=== PATIENT | male | born 1980 | race Caucasian/White ===

== ENCOUNTER → 2018-02-10 15:12 | Outpatient (CLI) | payer BC, SELFPAY | PROVIDERS: PCP Family Medicine; Visit Provider Family Medicine | DX: R06.83 Snoring (principal); R53.83 Other fatigue; I10 Essential (primary) hypertension | CPT/HCPCS: 95806 ==

== ENCOUNTER → 2019-08-13 07:29 | Outpatient (CLI) | payer BC, SELFPAY ==
[2019-08-13 07:44] LABS: Basophils % 0.7 % (0.1-2.0); Eosinophils # 0.1 K/mm3 (0.0-0.4); Eosinophils % 1.5 % (0.1-12.0); Hematocrit 39.6 % (42.0-52.0); Hemoglobin 13.9 g/dL (14.1-18.0); Lymphocytes % 16.7 % (10-50); Mean Corpuscular HGB Conc 35.1 g/dL (31.8-35.4); Mean Corpuscular Hemoglobin 33.4 pg (27.0-31.2); Mean Corpuscular Volume 95.2 fl (80-94); Mean Platelet Volume 9.5 fl (7.4-10.4); Monocytes # 0.5 K/mm3 (0.1-1.0); Monocytes % 9.1 % (1.7-9.3); Neutrophils # 4.1 K/mm3 (1.8-7.8); Neutrophils % 71.9 % (37.0-80.0); Platelet Count 185 K/mm3 (142-424); Red Blood Count 4.15 M/mm3 (4.60-6.20); Red Cell Distribution Width 12.6 % (11.5-17.5); White Blood Count 5.7 K/mm3 (4.8-10.8)
[2019-08-13 10:01] LABS: Alanine Aminotransferase 40 U/L (12-78); Albumin Level 3.8 gm/dL (3.4-5.0); Albumin/Globulin Ratio 1.2 (1.1-1.8); Alkaline Phosphatase 75 U/L (46-116); Anion Gap 12.4 mEq/L (5-15); Aspartate Amino Transferase 34 U/L (15-37); Bilirubin,Total 0.7 mg/dL (0.2-1.0); Blood Urea Nitrogen 12 mg/dL (7-18); Calcium 9.2 mg/dL (8.5-10.1); Carbon Dioxide 29 mmol/L (21.0-32.0); Chloride 105 mmol/L (98-107); Chol/HDL Ratio 3.8 (1-3.5); Cholesterol 194 mg/dL (140-200); Creatinine,Serum 0.89 mg/dL (0.70-1.30); Estimated Glomerular Filt Rate 94 ml/min (>60); Ferritin 392 ng/mL (8-388); GFR (African American) 114 ML/MIN (>60); Globulin 3.2 gm/dl (1.3-3.2); Glucose 107 mg/dL (74-106); HDL Cholesterol 51 mg/dL (27-67); LDL Cholesterol 103 mg/dL (0-130); Potassium 4.4 mmoL/L (3.5-5.1); Sodium 142 mmol/L (136-145); Thyroid Stimulating Hormone 2.34 uIU/ml (0.358-3.740); Triglycerides 201 mg/dL (30-200); Uric Acid 6.6 mg/dL (2.6-7.2); VLDL Cholesterol 40 mg/dL (0-40)
[2019-08-14 08:18] LABS: Iron 79 ug/dL (38-169); UIBC 199 ug/dL (111-343)
[2019-08-14 15:31] LABS: Iron Saturation 28 % (15-55)
== END ==
PROVIDERS: Visit Provider Family Medicine
DX: E78.00 Pure hypercholesterolemia, unspecified (principal); I10 Essential (primary) hypertension; R94.5 Abnormal results of liver function studies; M1A.9XX0 Chronic gout, unspecified, without tophus (tophi)
CPT/HCPCS: 36415; 80053; 80061; 82728; 83540; 83550; 84443; 84550; 85025

== ENCOUNTER 2020-03-08 19:25 | Inpatient (IN) | payer BC, SELFPAY ==
[2020-03-08 19:38] VITALS: BP 136/95; PULSE 125; RESP 18; TEMP 37.6; O2SAT 97; BMI 27.1
--- NOTE | 2020-03-08 19:45 | CT_ITS ---
PROCEDURE: CT ABDOMEN PELVIS WO CON CLINICAL INDICATION: Right flank pain Right flank pain and epigastric pain COMPARISON: CT ABDPELW/WO CT ABD PELVIS W/WO CONTRAST from 09/29/2013 TECHNIQUE: Axial images obtained with sagittal and coronal reformats. All CT scans at the facility use one or more dose reduction, viz: automated exposure control, ma/kV adjustment per patient size (including targeted exams where dose is matched to indication, i.e. head), or iterative reconstruction technique. FINDINGS: LOWER THORAX: There is a 8 mm nodular opacity in the right infrahilar region incompletely imaged. There is mild thickening in the right major fissure. Calcified granuloma is present in the left lower lobe posteriorly ABDOMEN & PELVIS: Fatty liver with hepatomegaly. There is some increased density of the gallbladder posteriorly which may be related to sludge. None is enlarged meters. There is stranding of the peripancreatic fat at the region of the head of the pancreas. There is also thickening of the anterior pararenal fascia on the right extending over into the pericolic gutter region. There is mild thickening of the transverse portion of the duodenum. No pancreatic gas is evident. No renal or ureteral calculi. No hydronephrosis. No evidence of appendicitis. No pelvic mass or abnormal fluid collection is evident. There is thickening of the urinary bladder wall. No acute bony findings. IMPRESSION: 1. Findings compatible with acute pancreatitis. 2. Fatty liver with hepatosplenomegaly with possible gallbladder sludge 3. Incompletely imaged 8 mm nodular opacity right infrahilar region Dictated by: David Freeman MD 03/09/2020 05:59 David Freeman MD in [place] 03/09/2020 05:59
[2020-03-08 19:52] LABS: Microscopic, Urine URINE MICROSCOPIC (MICROSCOPIC)
[2020-03-08 19:56] LABS: Appearance,Urine CLEAR (Clear); Bilirubin,Urine Negative (Negative); Blood, Urine TRACE-L (Negative); Color,Urine DK YELLOW (Yellow); Glucose,Urine (UA) Negative (Negative); Ketones,Urine Negative (Negative); Leukocyte Esterase,Urine Negative (Negative); Nitrate,Urine Negative (Negative); Protein,Urine 1+ (Negative); Specific Gravity, Urine 1.025 (1.005-1.030); Urobilinogen,Urine 0.2 EU/dl (0.2)
--- NOTE | 2020-03-08 20:04 | HMH.EDABDPAI ---
ED Disposition Clinical Impression: Good ability to follow directions Acute alcoholic pancreatitis Qualifiers: Acute pancreatitis complication: no infection or necrosis Qualified Code(s): K85.20 - Alcohol induced acute pancreatitis without necrosis or infection UTI (urinary tract infection) Qualifiers: Urinary tract infection type: acute cystitis Hematuria presence: with hematuria Qualified Code(s): N30.01 - Acute cystitis with hematuria Disposition: Admitted As Inpatient Condition on Discharge: Fair - Critical Care Critical Care Time: No Attestation: On 03/08/20, the high probability of a clinically significant, sudden or life threatening deterioration of the following system(s) required my full and direct attention, intervention and personal management. The time I documented below is in addition to time spent performing reported procedures but includes the following listed in this critical care notation. Medical Decision Making - Medical Records Medical records reviewed: Yes: I reviewed the patient's medical records. - [place] Inquiry Pt receiving controlled substance: No Vital Signs: 03/08/20 19:38 03/08/20 22:35 Temperature 99.6 F 99.6 F Temperature Source Oral Pulse Rate 82 Pulse Rate [Right] 125 H Respiratory Rate 18 14 Blood Pressure 126/76 Blood Pressure [Right Arm] 136/95 H Blood Pressure Mean [Right Arm] 108 Blood Pressure Source [Right Arm] Automatic Cuff Blood Pressure Position [Right Arm] Sitting 02 Sat by Pulse Oximetry 97 Oxygen Delivery Method Room Air Room Air - Lab Data Lab Results 03/08/20 19:30: Urine Color Dk yellow, Urine Appearance Clear, Urine pH 6.0, Ur Specific [place] 1.025, Urine Protein 1+, Urine Glucose (UA) Negative, Urine Ketones Negative, Urine Blood Trace-l, Urine Nitrate Negative, Urine Bilirubin Negative, Urine Urobilinogen 0.2, Ur Leukocyte Esterase Negative, Urine RBC 3-5, Urine WBC 5-10, Ur Squamous Epith Cells Occasional, Urine Bacteria 2+, Fine Granular Casts Occasional 03/08/20 19:55: WBC 15.0 H, RBC 4.63, Hgb 16.5, Hct 45.0, MCV 97.2 H, MCH 35.7 H, MCHC 36.7 H, RDW 11.9, Plt Count 164, MPV 8.1, Neut % (Auto) 83.0 H, Lymph % (Auto) 10.0, [place] % (Auto) 5.6, Eos % (Auto) 1.0, Baso % (Auto) 0.4, Neut # (Auto) 12.5 H, Lymph # (Auto) 1.5, [place] # (Auto) 0.8, Eos # (Auto) 0.2, Baso # (Auto) 0.1, Total Counted 100, Neutrophils % (Manual) 91 H, Lymphocytes % (Manual) 6 L, Monocytes % (Manual) 3, Platelet Estimate Normal, Giant Platelets 1+, RBC Morphology Normal 03/08/20 19:55: Sodium 139, Potassium 4.1, Chloride 100, Carbon Dioxide 25, Anion Gap 18.1 H, BUN 8 L, Creatinine 0.70, Estimated Creat Clear 178, Estimated GFR 124, Est GFR ( Amer) 150, Glucose 136 H, Calcium 9.6, Total Bilirubin 3.2 H, AST 136 H, ALT 77, Alkaline Phosphatase 127 H, Total Protein 8.2, Albumin 4.5, Globulin 3.7 H, Albumin/Globulin Ratio 1.2, Amylase 91, Lipase 1069 H 03/08/20 19:55: SARS-CoV-2 IgG Ab (Rapid) Negative, SARS-CoV-2 IgM Ab (Rapid) Negative Result diagrams: 03/08/20 19:55 03/08/20 19:55 Orders (Tests/Meds): ED MEDICATIONS Generic Name Dose Route Start Last Admin Trade Name Freq PRN Reason Stop Dose Admin Piperacillin Sod/Tazobactam 50 mls @ 100 mls/hr 03/09/20 05:45 Sod 3.375 gm/ Sodium Chloride IV 03/22/20 21:44 Q8H LINDA Protocol Lactated Ringer's 1,000 mls @ 90 mls/hr 03/08/20 22:44 03/08/20 23:29 Lactated Ringer's 1000 Ml Bag IV 04/07/20 22:43 90 mls/hr .[id number] LINDA Administration Ibuprofen 800 mg 03/08/20 22:44 Motrin 400mg Tablet PO 04/07/20 22:43 Q6HP PRN Mild Pain Morphine Sulfate 4 mg 03/08/20 22:44 Morphine 2mg/Ml Syringe IV 04/07/20 22:43 Q4HP PRN Severe Pain Discontinued Medications Generic Name Dose Route Start Last Admin Trade Name Freq PRN Reason Stop Dose Admin Sodium Chloride 1,000 mls @ 999 mls/hr 03/08/20 19:45 03/08/20 19:55 Sod Chlor 0.9% 1000ml Bag IV 03/08/20 20:45 999
[2020-03-08 20:13] LABS: Bacteria,Urine 2+ /lpf; Fine Granular Casts,Urine Occasional #/lpf (0); Squamous Epithelial Cell,Urine Occasional #/hpf (0-5)
[2020-03-08 20:15] LABS: Chloride 100 mmol/L (98-107); Potassium 4.1 mmoL/L (3.5-5.1); Sodium 139 mmol/L (136-145)
[2020-03-08 20:16] LABS: Basophils # 0.1 K/mm3 (0-0.2); Basophils % 0.4 % (0.1-2.0); Eosinophils # 0.2 K/mm3 (0.0-0.4); Hemoglobin 16.5 g/dL (14.1-18.0); Lymphocytes # 1.5 K/mm3 (0.7-4.5); Mean Corpuscular HGB Conc 36.7 g/dL (31.8-35.4); Mean Corpuscular Hemoglobin 35.7 pg (27.0-31.2); Mean Corpuscular Volume 97.2 fl (80-94); Mean Platelet Volume 8.1 fl (7.4-10.4); Monocytes # 0.8 K/mm3 (0.1-1.0); Monocytes % 5.6 % (1.7-9.3); Neutrophils # 12.5 K/mm3 (1.8-7.8); Platelet Count 164 K/mm3 (142-424); Red Blood Count 4.63 M/mm3 (4.60-6.20); Red Cell Distribution Width 11.9 % (11.5-17.5)
[2020-03-08 20:18] LABS: Alanine Aminotransferase 77 U/L (12-78); Albumin Level 4.5 g/dl (3.5-5.0); Albumin/Globulin Ratio 1.2 (1.1-1.8); Alkaline Phosphatase 127 U/L (38-126); Amylase 91 U/L (30-110); Anion Gap 18.1 mEq/L (5-15); Aspartate Amino Transferase 136 U/L (17-59); Bilirubin,Total 3.2 mg/dl (0.2-1.3); Blood Urea Nitrogen 8 mg/dl (9-20); Calcium 9.6 mg/dl (8.4-10.2); Carbon Dioxide 25 mmol/L (22.0-30.0); Creatinine Clearance Estimated 178 mL/min (50-200); Estimated Glomerular Filt Rate 124 ml/min (>60); GFR (African American) 150 ML/MIN (>60); Globulin 3.7 g/dL (1.3-3.2); Glucose 136 mg/dl (74-100); Lipase 1069 U/L (23-300); Total Protein,Serum 8.2 g/dl (6.3-8.2)
[2020-03-08 20:32] LABS: MANUAL DIFFERENTIAL MANUAL DIFFERENTIAL (MANUAL DIFF)
[2020-03-08 20:47] LABS: Giant Platelets 1+; Lymphocytes % 6 % (10-50); Monocytes % 3 % (2-9); Neutrophils % 91 % (42-76); Platelet Estimate Normal; RBC Morphology Normal; Total Cells Counted 100
--- NOTE | 2020-03-08 21:14 | US_ITS ---
PROCEDURE: US GALLBLADDER CLINICAL INDICATION: Right upper quadrant abdominal pain, pancreatitis COMPARISON: CT CT ABDOMEN PELVIS WO CON from 03/08/2020 FINDINGS: Pancreas: Unremarkable/Not well seen Liver: Diffuse increased echogenicity of the liver with poor through transmission of sound consistent with hepatic steatosis. No focal liver lesion demonstrated. There is appropriate direction of blood flow within non dilated portal vein. Right kidney: Unremarkable appearing. No hydronephrosis. Gallbladder: No stones are evident. There is no gallbladder wall thickening. Common duct is normal in diameter. IMPRESSION: Fatty liver otherwise negative No gallstones demonstrated Dictated by: David Freeman MD 03/09/2020 05:35 David Freeman MD in [place] 03/09/2020 05:35
--- NOTE | 2020-03-08 22:02 | PC.NURSE ---
on phone with dr. vail at this time
--- NOTE | 2020-03-08 22:08 | PC.NURSE ---
Patient admitted to 202 to service of to [place] with dx. acute pancreatitis and sepsis.
--- NOTE | 2020-03-08 22:34 | PC.NURSE ---
ED DIRECTOR OF PHARMACY KERRI BOTH SETS OF BLOOD CULTURES PER PROTOCOL. ZOSYN BEGAN AFTER CULTURE DRAW. ORIGINAL IV OF 20G RAC HAD BLOWN, SO 20G IN RFA BEGAN TO REPLACE
[2020-03-08 22:35] VITALS: BP 126/76; PULSE 82; RESP 14; TEMP 37.6; O2SAT 99
[2020-03-08 23:04] LABS: Coronavirus 19 IgG Antibody Negative (Negative); Coronavirus 19 IgM Antibody Negative (Negative)
[2020-03-08 23:07] LABS: Lactic Acid 1.1 mmol/L (0.7-2.1)
--- NOTE | 2020-03-08 23:09 | PC.NURSE ---
PT ARRIVED TO THE FLOOR VIA W/C FROM ED AT 2306.
[2020-03-08 23:15] VITALS: BP 135/94; PULSE 113; RESP 18; TEMP 37.7; O2SAT 98
[2020-03-08 23:34] VITALS: BMI 25.0
--- NOTE | 2020-03-09 03:43 | PC.NURSE ---
A&OX4, PT TOLERATING RA WELL. PT IS AT BEDSIDE. PT C/O ABD PAIN RATING 8 ON 1-10 SCALE ON ARRIVAL TO FLOOR. ADMINISTERED PRN MORPHINE PER MAR. ON REASSESSMENT, PT RESTING IN BED WITH EYES CLOSED. PT HAS HAD NO OTHER C/O THUS FAR. CIWA PERFORMED, SCORE OF 0. PT UP INDEPENDENTLY IN ROOM. PT TOLERATING NPO DIET WELL. PT RESTING IN BED MAJORITY OF SHIFT. VSS WILL CONTINUE TO MONITOR.
[2020-03-09 04:00] VITALS: BP 131/81; PULSE 95; RESP 18; TEMP 37; O2SAT 98
[2020-03-09 05:00] VITALS: BMI 24.6
[2020-03-09 06:57] LABS: Eosinophils # 0.1 K/mm3 (0.0-0.4); Eosinophils % 1.3 % (0.1-12.0); Monocytes # 0.7 K/mm3 (0.1-1.0)
[2020-03-09 07:05] LABS: Basophils % 0.3 % (0.1-2.0); Hematocrit 34.7 % (42.0-52.0); Lymphocytes % 11.3 % (10-50); Mean Corpuscular HGB Conc 38.5 g/dL (31.8-35.4); Mean Corpuscular Volume 93.5 fl (80-94); Mean Platelet Volume 8.7 fl (7.4-10.4); Monocytes % 7.8 % (1.7-9.3); Neutrophils # 6.9 K/mm3 (1.8-7.8); Neutrophils % 79.4 % (37.0-80.0); Platelet Count 104 K/mm3 (142-424); Red Blood Count 3.71 M/mm3 (4.60-6.20); Red Cell Distribution Width 12.2 % (11.5-17.5); White Blood Count 8.7 K/mm3 (4.8-10.8)
[2020-03-09 07:06] LABS: Hemoglobin 13.4 g/dL (14.1-18.0)
[2020-03-09 07:15] LABS: Chloride 104 mmol/L (98-107); Potassium 3.6 mmoL/L (3.5-5.1); Sodium 139 mmol/L (136-145)
[2020-03-09 07:18] LABS: Alanine Aminotransferase 48 U/L (12-78); Albumin Level 3.7 g/dl (3.5-5.0); Albumin/Globulin Ratio 1.1 (1.1-1.8); Alkaline Phosphatase 92 U/L (38-126); Anion Gap 10.6 mEq/L (5-15); Aspartate Amino Transferase 84 U/L (17-59); Bilirubin,Total 2.8 mg/dl (0.2-1.3); Blood Urea Nitrogen 9 mg/dl (9-20); Carbon Dioxide 28 mmol/L (22.0-30.0); Creatinine Clearance Estimated 162 mL/min (50-200); Estimated Glomerular Filt Rate 124 ml/min (>60); GFR (African American) 150 ML/MIN (>60); Globulin 3.3 g/dL (1.3-3.2); Glucose 119 mg/dl (74-100)
[2020-03-09 07:37] LABS: Calcium 8.3 mg/dl (8.4-10.2)
--- NOTE | 2020-03-09 07:53 | HMH.PHAINT ---
home medication reconciliation completed using list from home pharmacy
--- NOTE | 2020-03-09 07:55 | HMH.PHAVTE ---
[facility] Pharmacy VTE Monitoring - Patient Demographics Admission date: 03/09/20 Report Date: 03/09/20 Time: 07:55 Allergies/Adverse Reactions: Patient Allergies NO KNOWN ALLERGIES Allergy (Uncoded 06/24/17 15:34) Height: 1.83 m Weight: 82.582 kg Patient Problems: Current Active Problems Good ability to follow directions (Acute) Acute alcoholic pancreatitis (Acute) UTI (urinary tract infection) (Acute) - VTE Risk Labs: VTE Related Lab Results Hgb 13.4 g/dL (14.1-18.0) L D 03/09/20 06:26 Hct 34.7 % (42.0-52.0) L 03/09/20 06:26 Plt Count 104 K/mm3 (142-424) L D 03/09/20 06:26 BUN 9 mg/dl (9-20) 03/09/20 06:26 Creatinine 0.70 mg/dl (0.66-1.25) 03/09/20 06:26 Estimated Creat Clear 162 mL/min (50-200) 03/09/20 06:26 Clinical Trial Participant: No - Prophylaxis VTE Prophylaxis Ordered?: Yes Types of VTE Prophylaxis: TEDS Knee High
[2020-03-09 08:00] VITALS: BP 139/84; PULSE 95; RESP 16; TEMP 37.1; O2SAT 99
--- NOTE | 2020-03-09 08:35 | HMH.HP ---
*Admission Date: 03/09/20 <Maritza Kent 03/09/20 08:44> *Chief complaint: abdominal pain <Maritza Kent 03/09/20 08:44> *History of present illness: Mr. Montano is a 39-year-old male with a history of hypertension, hyperlipidemia, hyperuricemia, and GERD who presented to the ER last night with epigastric and right upper quadrant abdominal pain. The patient states the pain started yesterday around 3:30 AM in the epigastric area. He did have some nausea and vomiting and it worsened throughout the day and spread to his right upper quadrant and radiated into his back. He was running a low-grade fever and was slightly dizzy. He finally presented to the emergency room last night and, with evaluation, was found to have pancreatitis along with a possible urinary tract infection. He was admitted and started on IV fluids, IV antibiotics, and pain medication. He states he has never had pancreatitis in the past. His right upper quadrant ultrasound showed no gallstones. He does state he drinks approximately 12 alcoholic beverages daily. <Maritza Kent 03/09/20 08:44> [facility] History I have reviewed the patient's past medical history: Yes <Maritza Kent 03/09/20 08:44> Medical History: Reports:: Gastroesophageal Reflux Disease(GERD), Hyperlipidemia, Hypertension Denies:: Cancer, Diabetes Mellitus Type 1, Diabetes Mellitus Type 2, Internal Pacemaker, Lung Disease, MRSA, Seizures <Maritza Kent 03/09/20 08:44> *Have you ever received a pneumonia vaccine?: No <Maritza Kent 03/09/20 08:44> *Have you received a flu vaccine this season?: No <Maritza Kent 03/09/20 08:44> Other Medical History: Reports: Other (Gout) <Maritza Kent 03/09/20 08:44> Other Surgeries: Yes: EGD, Other (Lasik Eye Surgery). No: Pacemaker <Maritza Kent 03/09/20 08:44> Amputation: No <Maritza Kent 03/09/20 08:44> Fractures: No <Maritza Kent 03/09/20 08:44> - *Social History Last grade of school completed: Some college <Maritza Kent 03/09/20 08:44> Smoking Status: Current every day smoker <Maritza Kent 03/09/20 08:44> Tobacco Type: smokeless tobacco <Maritza Kent 03/09/20 08:44> # Packs/Day (cigarettes): 0 <Maritza Kent 03/09/20 08:44> Alcohol Intake: current <Maritza Kent 03/09/20 08:44> Alcohol Intake Frequency:: 3 or more drinks per day <Maritza Kent 03/09/20 08:44> Substance Use Type: marijuana <Maritza Kent 03/09/20 08:44> Last Used Substance: unknown <Maritza Kent 03/09/20 08:44> *Occupational Status:: employed <Maritza Kent 03/09/20 08:44> Household Members: spouse <Maritza Kent 03/09/20 08:44> *Travel in the last 8 weeks: None <Maritza Kent 03/09/20 08:44> Family Hx:: Hypertension, Other (Cirrhosis of the Liver) <Maritza Kent 03/09/20 08:44> Review of Systems - Constitutional Reports fever(s), Denies fatigue, Denies weakness <Maritza Kent 03/09/20 08:44> - Eyes Denies blurry vision, Denies double vision <Maritza Kent 03/09/20 08:44> - ENT Denies nasal congestion, Denies sore throat <Maritza Kent 03/09/20 08:44> - *Cardiovascular Denies chest pain, Denies shortness of breath <Maritza Kent 03/09/20 08:44> - *Respiratory Denies cough, Denies shortness of breath <Maritza Kent 03/09/20 08:44> - *Gastrointestinal Reports abdominal pain, Reports nausea, Reports vomiting, Denies loose stools <Maritza Kent 03/09/20 08:44> - *Genitourinary Denies difficulty urinating, Denies painful urination <Maritza Kent 03/09/20 08:44> - *Musculoskeletal Denies joint pain <Maritza Kent - 03/09/20 08:44> - *Neurologic Reports dizziness, Denies headache(s), Denies weakness <Maritza Kent - 03/09/20 08:44> Meds Home Medications Medication Instructions Recorded Confirmed Type carvediloL [Coreg 12.5mg 12.5 mg PO BID 10/12/18 03/08/20 History Tablet] Omeprazole [Omeprazole 20mg Tab] 20 mg PO BID 03/08/20 03/08/20 History Pravastatin Sodium
[2020-03-09 08:52] LABS: Amylase 72 U/L (30-110); Lipase 421 U/L (23-300)
[2020-03-09 11:02] LABS: Basophils % 0.2 % (0.1-2.0); Eosinophils # 0.2 K/mm3 (0.0-0.4); Eosinophils % 2.7 % (0.1-12.0); Hematocrit 35.7 % (42.0-52.0); Hemoglobin 13.6 g/dL (14.1-18.0); Lymphocytes # 0.7 K/mm3 (0.7-4.5); Lymphocytes % 8.7 % (10-50); Mean Corpuscular HGB Conc 38.2 g/dL (31.8-35.4); Mean Corpuscular Hemoglobin 36.1 pg (27.0-31.2); Mean Corpuscular Volume 94.5 fl (80-94); Mean Platelet Volume 8.1 fl (7.4-10.4); Monocytes # 0.5 K/mm3 (0.1-1.0); Monocytes % 5.9 % (1.7-9.3); Neutrophils % 82.5 % (37.0-80.0); Platelet Count 110 K/mm3 (142-424); Red Blood Count 3.77 M/mm3 (4.60-6.20); Red Cell Distribution Width 11.7 % (11.5-17.5); White Blood Count 8.5 K/mm3 (4.8-10.8)
--- NOTE | 2020-03-09 11:36 | PC.NURSE ---
spoke with dr. christian about patient requesting allpurinol. stated he would reorder that
[2020-03-09 16:00] VITALS: BP 149/84; PULSE 101; RESP 18; TEMP 37.3; O2SAT 100
--- NOTE | 2020-03-09 16:42 | PC.NURSE ---
patient has done well this shift. he has had dull pain he rated at a 3 most of shift. at this time pain is a little more so requested ibuprofen before going to morphine. has ambulated in room. current ciwa score remains at 0. vss will continue to monitor.
[2020-03-09 20:00] VITALS: BP 148/90; PULSE 110; RESP 18; TEMP 36.9; O2SAT 100
[2020-03-10 04:00] VITALS: BP 116/75; PULSE 88; RESP 14; TEMP 36.9; O2SAT 99
[2020-03-10 05:13] VITALS: BMI 24.9
--- NOTE | 2020-03-10 05:35 | PC.NURSE ---
PT. C/O SORENESS IN ABD AND REQUESTED MOTRIN X1 THIS SHIFT; EFFECTIVENESS REPORTED. PT. DENIES N/V/D, SOA, OR DIZZINESS. PT. REPORTS INCREASED APPETITE AND TOLERATED FULL LIQUID DIET WELL.
[2020-03-10 07:28] LABS: Basophils % 0.3 % (0.1-2.0); Eosinophils # 0.1 K/mm3 (0.0-0.4); Eosinophils % 2.5 % (0.1-12.0); Hematocrit 36.6 % (42.0-52.0); Hemoglobin 13.3 g/dL (14.1-18.0); Lymphocytes # 0.9 K/mm3 (0.7-4.5); Lymphocytes % 15.6 % (10-50); Mean Corpuscular HGB Conc 36.3 g/dL (31.8-35.4); Mean Corpuscular Hemoglobin 35.2 pg (27.0-31.2); Mean Corpuscular Volume 96.9 fl (80-94); Mean Platelet Volume 9.3 fl (7.4-10.4); Monocytes # 0.4 K/mm3 (0.1-1.0); Monocytes % 7.3 % (1.7-9.3); Neutrophils # 4.3 K/mm3 (1.8-7.8); Neutrophils % 74.3 % (37.0-80.0); Platelet Count 98 K/mm3 (142-424); Red Blood Count 3.78 M/mm3 (4.60-6.20); Red Cell Distribution Width 11.8 % (11.5-17.5); White Blood Count 5.8 K/mm3 (4.8-10.8)
[2020-03-10 07:49] LABS: Chloride 105 mmol/L (98-107); Potassium 3.4 mmoL/L (3.5-5.1); Sodium 141 mmol/L (136-145)
[2020-03-10 07:52] LABS: Alanine Aminotransferase 33 U/L (12-78); Albumin Level 3.5 g/dl (3.5-5.0); Alkaline Phosphatase 84 U/L (38-126); Amylase 54 U/L (30-110); Anion Gap 9.4 mEq/L (5-15); Aspartate Amino Transferase 54 U/L (17-59); Blood Urea Nitrogen 7 mg/dl (9-20); Calcium 8.8 mg/dl (8.4-10.2); Carbon Dioxide 30 mmol/L (22.0-30.0); Creatinine Clearance Estimated 191 mL/min (50-200); Estimated Glomerular Filt Rate 148 ml/min (>60); GFR (African American) 180 ML/MIN (>60); Globulin 3.4 g/dL (1.3-3.2); Glucose 117 mg/dl (74-100); Lipase 305 U/L (23-300); Total Protein,Serum 6.9 g/dl (6.3-8.2)
[2020-03-10 08:00] VITALS: BP 138/91; PULSE 88; RESP 18; TEMP 37.1; O2SAT 99
--- NOTE | 2020-03-10 08:25 | HMH.ACPN2 ---
<Maritza Kent - Last Filed: 03/10/20 08:25> Internal Medicine - PN: Subj *Date: 03/10/20 *Time: 08:25 Interval history: Patient states he is feeling better this morning. He has less abdominal pain and is tolerating his liquid diet. He slept off and on throughout the night. He is anxious to go home today. Exam Vital signs and Labs for Last 24 Hours: Temp Pulse Resp BP Pulse Ox 98.4 F 88 14 116/75 99 03/10/20 04:00 03/10/20 04:00 03/10/20 04:00 03/10/20 04:00 03/10/20 04:00 Laboratory Results - last 24 hr 03/09/20 06:26: Amylase 72 D, Lipase 421 H 03/09/20 10:50: WBC 8.5, RBC 3.77 L, Hgb 13.6 L, Hct 35.7 L, MCV 94.5 H, MCH 36.1 H, MCHC 38.2 H, RDW 11.7, Plt Count 110 L, MPV 8.1, Neut % (Auto) 82.5 H, Lymph % (Auto) 8.7 L, Green % (Auto) 5.9, Eos % (Auto) 2.7, Baso % (Auto) 0.2, Neut # (Auto) 7.0, Lymph # (Auto) 0.7, [place] # (Auto) 0.5, Eos # (Auto) 0.2, Baso # (Auto) 0.0 03/10/20 07:00: WBC 5.8 D, RBC 3.78 L, Hgb 13.3 L, Hct 36.6 L, MCV 96.9 H, MCH 35.2 H, MCHC 36.3 H, RDW 11.8, Plt Count 98 L, MPV 9.3, Neut % (Auto) 74.3, Lymph % (Auto) 15.6, [place] % (Auto) 7.3, Eos % (Auto) 2.5, Baso % (Auto) 0.3, Neut # (Auto) 4.3, Lymph # (Auto) 0.9, [place] # (Auto) 0.4, Eos # (Auto) 0.1, Baso # (Auto) 0.0 03/10/20 07:00: Sodium 141, Potassium 3.4 L, Chloride 105, Carbon Dioxide 30, Anion Gap 9.4, BUN 7 L, Creatinine 0.60 L, Estimated Creat Clear 191, Estimated GFR 148, Est GFR ( Amer) 180, Glucose 117 H, Calcium 8.8, Total Bilirubin 2.0 H, AST 54 D, ALT 33 D, Alkaline Phosphatase 84, Total Protein 6.9, Albumin 3.5, Globulin 3.4 H, Albumin/Globulin Ratio 1.0 L, Amylase 54, Lipase 305 H I & O for Last 24 hours: Intake & Output 03/07/20 03/08/20 03/09/20 03/10/20 11:59 11:59 11:59 11:59 Intake Total 1606 / 1606 1929 / 1929 Output Total 400 / 400 700 / 700 Balance 1206 / 1206 1229 / 1229 Weight 182 lb 1 oz 184 lb 3 oz Microbiology Reports for the Last 24 Hours: Microbiology 03/08/20 19:30 Urine,Clean Catch Urine Culture - Preliminary NO GROWTH AFTER 24 HOURS - Constitutional no acute distress - *Routine Respiratory Exam Present: CTA bilaterally - *Routine Cardiovascular Exam Present: RRR - *Routine Abdominal Exam Present: soft, normoactive bowel sounds. Absent: tenderness - *Routine Extremities Exam Absent: cyanosis, clubbing, edema - *Routine Skin Exam Present: warm. Absent: rash - *Routine Neurological Exam Present: alert, oriented X3 Assessment and Plan (1) Acute alcoholic pancreatitis Current visit: Yes Status: Acute Qualifiers: Acute pancreatitis complication: no infection or necrosis Qualified Code(s): K85.20 - Alcohol induced acute pancreatitis without necrosis or infection Category: Medical Code(s): K85.20 - Alcohol induced acute pancreatitis without necrosis or infection (2) UTI (urinary tract infection) Current visit: Yes Status: Acute Qualifiers: Urinary tract infection type: acute cystitis Hematuria presence: with hematuria Qualified Code(s): N30.01 - Acute cystitis with hematuria Category: Medical Code(s): N39.0 - Urinary tract infection, site not specified (3) Hypertension Current visit: Yes Status: Chronic Category: Medical Code(s): I10 - Essential (primary) hypertension (4) Hyperlipidemia Current visit: Yes Status: Chronic Category: Medical Code(s): E78.5 - Hyperlipidemia, unspecified (5) Gout Current visit: Yes Status: Chronic Category: Medical Code(s): M10.9 - Gout, unspecified (6) Elevated LFTs Current visit: Yes Status: Acute Category: Medical Code(s): R79.89 - Other specified abnormal findings of blood chemistry - Assessment and plan all Dx Assessment and Plan for all problems:: Lipase is improving as is his bilirubin. Potassium is slightly low today. Possible discharge on oral potassium. <Ayden Marcus - Last Filed: 03/10/20 09:04>
--- NOTE | 2020-03-10 12:37 | HMH.DCSUM ---
General - General Admission date:: 03/08/20 Discharge date: 03/10/20 HPI HPI: Mr. Montano is a 39-year-old male with a history of hypertension, hyperlipidemia, hyperuricemia, and GERD who presented to the ER last night with epigastric and right upper quadrant abdominal pain. The patient states the pain started yesterday around 3:30 AM in the epigastric area. He did have some nausea and vomiting and it worsened throughout the day and spread to his right upper quadrant and radiated into his back. He was running a low-grade fever and was slightly dizzy. He finally presented to the emergency room last night and, with evaluation, was found to have pancreatitis along with a possible urinary tract infection. He was admitted and started on IV fluids, IV antibiotics, and pain medication. He states he has never had pancreatitis in the past. His right upper quadrant ultrasound showed no gallstones. He does state he drinks approximately 12 alcoholic beverages daily. Hospital Course Hospital Course: The patient's abdominal/pelvic CT showed acute pancreatitis along with some fatty liver and an 8 mm nodular opacity in the right infrahilar region. The patient had a gallbladder ultrasound showing fatty liver but no gallstones. He was admitted and kept n.p.o. and was started on IV fluids and pain control. He was also started on IV antibiotics for a possible urinary tract infection while urine and blood cultures were pending. He was started on alcohol withdrawal protocol. His lipase did improve throughout his stay as did his abdominal pain. He was able to tolerate a liquid diet and his bilirubin and LFTs improved. His urine culture showed no growth and he was stable to get discharged home on continued Ceftin. He will follow-up with Dr. Marcus in the office. Objective Vital signs: Temp Pulse Resp BP Pulse Ox 98.8 F 88 18 138/91 H 99 03/10/20 08:00 03/10/20 08:00 03/10/20 08:00 03/10/20 08:00 03/10/20 08:00 Narrative: - Constitutional no acute distress - *Routine HEENT Exam Head: Present: normocephalic Eye: Present: EOMI, PERRL ENT: Present: mucous membranes dry - *Routine Neck Exam Present: supple. Absent: lymphadenopathy - *Routine Respiratory Exam Present: CTA bilaterally - *Routine Cardiovascular Exam Present: RRR - *Routine Abdominal Exam Present: soft, normoactive bowel sounds, tenderness (epigastric area) - *Routine Extremities Exam Absent: cyanosis, clubbing, edema - *Routine Skin Exam Present: warm. Absent: rash - *Routine Neurological Exam Present: alert, oriented X3 Results Labs on day of discharge: Labs from last 24 hours 03/10/20 03/10/20 07:00 07:00 WBC 5.8 D RBC 3.78 L Hgb 13.3 L Hct 36.6 L MCV 96.9 H MCH 35.2 H MCHC 36.3 H RDW 11.8 Plt Count 98 L MPV 9.3 Neut % (Auto) 74.3 Lymph % (Auto) 15.6 [place] % (Auto) 7.3 Eos % (Auto) 2.5 Baso % (Auto) 0.3 Neut # (Auto) 4.3 Lymph # (Auto) 0.9 [place] # (Auto) 0.4 Eos # (Auto) 0.1 Baso # (Auto) 0.0 Sodium 141 Potassium 3.4 L Chloride 105 Carbon Dioxide 30 Anion Gap 9.4 BUN 7 L Creatinine 0.60 L Estimated Creat Clear 191 Estimated GFR 148 Est GFR ( Amer) 180 Glucose 117 H Calcium 8.8 Total Bilirubin 2.0 H AST 54 D ALT 33 D Alkaline Phosphatase 84 Total Protein 6.9 Albumin 3.5 Globulin 3.4 H Albumin/Globulin Ratio 1.0 L Amylase 54 Lipase 305 H Preliminary micro results at discharge 03/08/20 19:30 Urine Culture - Preliminary Urine,Clean Catch NO GROWTH AFTER 24 HOURS DS: Diagnosis - Discharge Diagnosis (1) Acute alcoholic pancreatitis Status: Acute (2) UTI (urinary tract infection) Status: Acute (3) Hypertension Status: Chronic (4) Hyperlipidemia Status: Chronic (5) Gout Status: Chronic (6) Elevated LFTs Status: Acute Dis
== END 2020-03-10 10:00 | disposition home or self-care (01) | DRG 440 ==
LOC: ER 20:10 → 2ND 22:17
PROVIDERS: Emergency Medicine; Physician Assistant; Admitting Provider Family Medicine; Emergency Provider Emergency Medicine; PCP Family Medicine; Visit Provider Family Medicine
DX: K85.20 Alcohol induced acute pancreatitis without necrosis or infection (principal); F10.20 Alcohol dependence, uncomplicated; I10 Essential (primary) hypertension; Z72.0 Tobacco use; E78.5 Hyperlipidemia, unspecified
CPT/HCPCS: 36415; 74176; 76705; 80053; 81001; 82150; 83605; 83690; 85007; 85025; 86328; 87040; 87086; 96365; 96367; 96375; 99284; J2405; J2543

== ENCOUNTER → 2020-11-27 13:33 | Outpatient (CLI) | payer BC, SELFPAY ==
[2020-11-27 13:45] LABS: Basophils % 0.6 % (0.1-2.0); Eosinophils # 0.1 K/mm3 (0.0-0.4); Hematocrit 41.7 % (42.0-52.0); Hemoglobin 14.7 g/dL (14.1-18.0); Lymphocytes # 1.3 K/mm3 (0.7-4.5); Lymphocytes % 18.4 % (10-50); Mean Corpuscular HGB Conc 35.1 g/dL (31.8-35.4); Mean Corpuscular Hemoglobin 31.9 pg (27.0-31.2); Mean Corpuscular Volume 90.8 fl (80-94); Mean Platelet Volume 8.6 fl (7.4-10.4); Monocytes # 0.6 K/mm3 (0.1-1.0); Monocytes % 8.2 % (1.7-9.3); Neutrophils # 5.2 K/mm3 (1.8-7.8); Neutrophils % 70.9 % (37.0-80.0); Platelet Count 173 K/mm3 (142-424); Red Blood Count 4.59 M/mm3 (4.60-6.20); Red Cell Distribution Width 13.1 % (11.5-17.5); White Blood Count 7.3 K/mm3 (4.8-10.8)
[2020-11-27 15:22] LABS: Alanine Aminotransferase 31 U/L (12-78); Albumin Level 4.8 g/dl (3.5-5.0); Albumin/Globulin Ratio 1.5 (1.1-1.8); Alkaline Phosphatase 102 U/L (38-126); Anion Gap 12.2 mEq/L (5-15); Aspartate Amino Transferase 44 U/L (17-59); Bilirubin,Total 1.7 mg/dl (0.2-1.3); Blood Urea Nitrogen 18 mg/dl (9-20); Calcium 9.4 mg/dl (8.4-10.2); Carbon Dioxide 30 mmol/L (22.0-30.0); Chloride 102 mmol/L (98-107); Chol/HDL Ratio 4.6 (1-3.5); Cholesterol 170 mg/dl (140-200); Estimated Glomerular Filt Rate 93 ml/min (>60); GFR (African American) 112 ML/MIN (>60); Globulin 3.1 g/dL (1.3-3.2); Glucose 101 mg/dl (74-100); HDL Cholesterol 37 mg/dl (40-60); Lipase 88 U/L (23-300); Potassium 5.2 mmoL/L (3.5-5.1); Sodium 139 mmol/L (136-145); Total Protein,Serum 7.9 g/dl (6.3-8.2)
[2020-11-27 15:24] LABS: Triglycerides 450 mg/dl (30-150)
[2020-11-27 15:33] LABS: Direct LDL Cholesterol 71.61 mg/dL (100-129)
== END ==
PROVIDERS: Visit Provider Internal Medicine Adolescent Medicine
DX: R10.9 Unspecified abdominal pain (principal)
CPT/HCPCS: 80053; 80061; 83690; 85025

== ENCOUNTER → 2021-05-03 19:08 | Outpatient (CLI) | payer BC, SELFPAY ==
[2021-05-03 19:43] LABS: Basophils # 0.1 K/mm3 (0-0.2); Basophils % 0.8 % (0.1-2.0); Eosinophils # 0.1 K/mm3 (0.0-0.4); Eosinophils % 1.5 % (0.1-12.0); Hematocrit 45.2 % (42.0-52.0); Hemoglobin 15.8 g/dL (14.1-18.0); Lymphocytes % 24.9 % (10-50); Mean Corpuscular HGB Conc 34.9 g/dL (31.8-35.4); Mean Corpuscular Hemoglobin 33.8 pg (27.0-31.2); Mean Corpuscular Volume 96.8 fl (80-94); Mean Platelet Volume 9.8 fl (7.4-10.4); Monocytes # 0.5 K/mm3 (0.1-1.0); Monocytes % 6.7 % (1.7-9.3); Neutrophils # 5.3 K/mm3 (1.8-7.8); Neutrophils % 66.2 % (37.0-80.0); Platelet Count 231 K/mm3 (142-424); Red Blood Count 4.67 M/mm3 (4.60-6.20); Red Cell Distribution Width 12.8 % (11.5-17.5)
[2021-05-03 19:58] LABS: Chloride 100 mmol/L (98-107); Sodium 139 mmol/L (136-145)
[2021-05-03 19:59] LABS: Potassium 4.6 mmoL/L (3.5-5.1)
[2021-05-03 20:01] LABS: Alanine Aminotransferase 44 U/L (12-78); Albumin Level 4.6 g/dl (3.5-5.0); Albumin/Globulin Ratio 1.4 (1.1-1.8); Alkaline Phosphatase 83 U/L (38-126); Anion Gap 15.6 mEq/L (5-15); Aspartate Amino Transferase 64 U/L (17-59); Bilirubin,Total 1.2 mg/dl (0.2-1.3); Blood Urea Nitrogen 12 mg/dl (9-20); Carbon Dioxide 28 mmol/L (22.0-30.0); Cholesterol 215 mg/dl (140-200); Estimated Glomerular Filt Rate 148 ml/min (>60); GFR (African American) 179 ML/MIN (>60); Globulin 3.2 g/dL (1.3-3.2); Total Protein,Serum 7.8 g/dl (6.3-8.2)
[2021-05-03 20:02] LABS: Calcium 9.5 mg/dl (8.4-10.2); Chol/HDL Ratio 5.5 (1-3.5); Glucose 78 mg/dl (74-100); HDL Cholesterol 39 mg/dl (40-60)
[2021-05-03 20:13] LABS: Direct LDL Cholesterol 62.29 mg/dL (100-129)
[2021-05-03 22:38] LABS: Vitamin B12 > 1000 pg/mL (239-931)
[2021-05-03 22:39] LABS: Triglycerides 867 mg/dl (30-150)
== END ==
PROVIDERS: Visit Provider Internal Medicine Adolescent Medicine
DX: I10 Essential (primary) hypertension (principal); E78.00 Pure hypercholesterolemia, unspecified; G62.9 Polyneuropathy, unspecified
CPT/HCPCS: 80053; 80061; 82607; 85025

== ENCOUNTER 2023-09-28 16:26 | Emergency (ER) | payer BC, SELFPAY ==
--- NOTE | 2023-09-28 16:34 | CT_ITS ---
PROCEDURE INFORMATION: Exam: CT Head Without Contrast Exam date and time: 09/28/2023 4:39 PM Age: 43 years old Clinical indication: Injury or trauma; Other: Hit in head with gate; Laceration; Without residual foreign body; Forehead; Additional info: [place] vs forehead TECHNIQUE: Imaging protocol: Computed tomography of the head without contrast. Radiation optimization: All CT scans at this facility use at least one of these dose optimization techniques: automated exposure control; mA and/or kV adjustment per patient size (includes targeted exams where dose is matched to clinical indication); or iterative reconstruction. COMPARISON: No relevant prior studies available. FINDINGS: Brain: Benign-appearing right choroid fissure cyst measuring 8.5 mm in diameter with CSF fluid attenuation of 0 Hounsfield units. Hamilton-white matter differentiation maintained. No mass effect. No hyperattenuating foci are identified to suggest acute intracranial hemorrhage. Cerebral ventricles: No ventriculomegaly. Paranasal sinuses: Mild polypoid mucoperiosteal thickening of the maxillary sinuses is present. Mastoid air cells: Visualized mastoid air cells are well aerated. Bones/joints: Unremarkable. No acute fracture. Soft tissues: Frontal soft tissue defect compatible with laceration with adjacent hematoma. IMPRESSION: 1. No hyperattenuating foci are identified to suggest acute intracranial hemorrhage. 2. Frontal soft tissue defect compatible with laceration with adjacent hematoma.
[2023-09-28 16:35] VITALS: PULSE 97; O2SAT 99
--- NOTE | 2023-09-28 16:35 | ED_ITS ---
Discharge Plan Disposition Patient Disposition: Home, Self-Care Chief Complaint: Head Injury Prescriptions Prescriptions: No Action allopurinol 100 MG tablet 100 mg PO DAILY pravastatin 20 MG tablet 20 mg PO DAILY omeprazole 20 MG tablet,delayed release (DR/EC) 20 mg PO BID cefuroxime axetil 500 MG tablet 500 mg PO BID Qty: 14 0RF carvedilol 12.5 MG Tablet 12.5 mg PO BID Referrals Follow up/Referrals: Sterling Muller MD [Primary Care Provider] - See instructions Activity Restrictions/Add. Instructions Additional Instructions/Restrictions: At this time it was felt you are safe to be discharged home. If new or wors ening symptoms please do not hesitate to return the emergency department. Please follow-up with your family doctor in 10 to 12 days to see if your sutures are ready to be removed. Do not submerge your head in water until then, it is okay to shower. Clinical Impressions Clinical Impression: Blunt trauma, Forehead laceration Discharge ED Provider: Burke Lawrence General Adult HPI General Chief complaint: Head Injury Stated complaint: [id number]/@1300 forehead lac Time Seen by Provider: 09/28/23 16:28 History of Present Illness HPI narrative: Patient is a 43-year-old male with no pertinent past medical history presents emergency department for evaluation of traumatic injury sustained from a gate. Steer hit a gate which struck him in the head, his vision went black however he did not lose consciousness or fall to the ground. Initially had bleeding which has become hemostatic prior to arrival, there is a obvious laceration over his forehead. Slight chest wall discomfort from the gait. Last Tdap not up-to-date. No blood thinners. No other acute complaints at this time. Related Data Home Medications Medication Instructions Recorded Confirmed carvedilol 12.5 mg tablet 12.5 mg PO BID blood pressure 10/12/18 03/08/20 allopurinol 100 mg tablet 100 mg PO DAILY High blood pressure 03/08/20 03/08/20 omeprazole 20 mg tablet,delayed 20 mg PO BID GERD 03/08/20 03/08/20 release pravastatin 20 mg tablet 20 mg PO DAILY Cholesterol 03/08/20 03/08/20 Previous Rx's Medication Instructions Recorded cefuroxime axetil 500 mg tablet 500 mg PO BID #14 tabs 03/10/20 Allergies Allergy/AdvReac Type Severity Reaction Status Date / Time No Known Allergies Allergy Unverified 03/09/20 08:08 [facility] Disclaimer: The information contained in this section may have been updated after the patient was seen, as this information can be updated by other users. Social History Smoking Status: Never smoker alcohol intake: current substance use type: marijuana current occupational status: employed Travel in the last 8 weeks: None household members: spouse caffeine: Yes ROS Obtained: Yes Systems reviewed as appropriate & no additional complaints except as documented Physical Exam General General appearance: alert and in no apparent distress Head Head exam: normocephalic and other (Approximately 2.5 cm gaping laceration in a linear horizontal orientation on the forehead located above the glabella, hemostatic. No nasal septal hematoma. There is abrasions over the nose.) Eye Eye exam: Present PERRL and EOMI ENT ENT exam: Present mucous membranes moist Neck Neck exam: Present normal inspection Chest Chest inspection: Present normal inspection, symmetric chest wall rise and other (No bruising); Absent tenderness Respiratory Respiratory exam: Absent respiratory distress Cardiovascular Cardiovascular exam: Present regular rate and normal rhythm Abdominal Exam Abdominal exam: Present soft; Absent tenderness Extremities Exam Extremities exam: Present normal inspection Neurological Exam Neurological exam: Present alert and oriented X3; Absent motor sensory deficit Psychiatric Psychiatric exam: Present normal affect Skin Skin exam: Present warm and dry Medical Decision Making Jackson Inquiry Pt receiving controlled substance: No Vital Signs: 09/28/23 16:39 Temperature 98.4 F Temperature Source Oral Pulse Rate [Right Radial] 82 Respiratory Rate 20 Blood Pressure [Right Arm] 178/127 H Blood Pressure Mean [Right Arm] 144 02 Sat by Pulse Oximetry 99 Oxygen Delivery Method Room Air Orders (Tests/Meds): ED MEDICATIONS Discontinued Medications Generic Name Dose Route Start Last Admin Trade Name Freq PRN Reason Stop Dose Admin Cocaine HCl 1 ml 09/28/23 16:34 09/28/23 16:48 Cocaine 4% Topical Soln 4ml Bottle TP 09/28/23 16:35 1 ml ONCE ONE Administration Epinephrine HCl 1 mg 09/28/23 16:34 09/28/23 16:48 Epinephrine 1 Mg/Ml Ampul TP 09/28/23 16:35 1 mg ONCE ONE Administration Lidocaine HCl 1 ml 09/28/23 16:34 09/28/23 16:48 Lidocaine 2% Urojet 10ml TP 09/28/23 16:35 1 ml ONCE ONE Administration Lidocaine/Epinephrine 10 ml 09/28/23 16:47 09/28/23 16:48 Lidocaine 1% W/Epi 1:100,000 20ml Vial IJ 09/28/23 16:48 10 ml ONCE ONE Administration Tetanus/Reduced Diphtheria/Acell Pertussis 0.5 ml 09/28/23 16:35 09/28/23 16:57 Tet/Diphth/Pert-Adult 0.5ml Syringe IM 09/28/23 16:36 0.5 ml .ONCE ONE Administration ORDERS Category Date Time Status CT head/brain wo con Stat Cat Scan 09/28/23 16:34 Taken Medical Decision Narrative: In summary patient is a 43-year-old male with past medical history described above presents emergency department for evaluation of trauma. Patient is hemodynamically stable nontoxic-appearing upon arrival, afebrile. Differential diagnosis includes intracranial hemorrhage, blunt trauma with superficial laceration. No nasal septal hematoma. Limited trauma survey will be conducted with noncontrasted CT scan of the head. Laceration will be repaired. Tetanus will be updated. Patient has a nontender chest wall and no ongoing chest pain therefore workup with labs and imaging from that standpoint was considered but will be deferred. CT imaging informally interpreted by me, no sinus fracture, no intracranial hemorrhage with midline shift. Patient underwent repair at bedside with good approximation. Patient is appropriate for discharge at this time. Procedure: Procedure performed was laceration repair. Procedure performed by Burke Lawrence. Topical lidocaine was applied to the wound, 10 cc lidocaine 1% with epinephrine was infiltrated in the wound with anesthesia achieved. Location was just above the glabella, length 2.5 cm. Wound was irrigated with Hibiclens and subsequently 400 cc of sterile water. Single 5-0 fast gut deep suture was placed in the middle of the wound to approximate and take tension off the wound with success. Superficial aspect of laceration was closed with 4-0 Prolene. Number of sutures placed was 5. Patient tolerated the procedure well. There were no immediate complications. Critical Care Critical Care Time Critical Care Time: No
[2023-09-28 16:39] VITALS: BP 178/127; PULSE 82; RESP 20; TEMP 36.9; O2SAT 99; BMI 27.1
--- NOTE | 2023-09-28 16:40 | PC.NURSE ---
pt to ct
[2023-09-28] MEDS: COCAINE 4% TOPICAL SOLN 4ML BOTTLE 1 ML TP (16:48)
[2023-09-28] MEDS: LIDOCAINE 1% W/EPI 1:100,000 20ML VIAL 10 ML IJ (16:48)
[2023-09-28] MEDS: EPINEPHrine 1 MG/ML AMPUL TP (16:48)
[2023-09-28] MEDS: LIDOCAINE 2% UROJET 10ML TP (16:48)
[2023-09-28] MEDS: TET/DIPHTH/PERT-ADULT 0.5ML SYRINGE 0.5 ML IM (16:57)
[2023-09-28 17:00] VITALS: BP 183/114; PULSE 95
[2023-09-28] MEDS: BACITRACIN ZINC OINT 30GM TUBE TP (17:00)
[2023-09-28 17:25] VITALS: BP 167/110; PULSE 89; RESP 20; TEMP 36.8; O2SAT 96
== END 2023-09-28 17:27 | disposition home or self-care (01) ==
PROVIDERS: Emergency Provider Emergency Medicine; PCP Internal Medicine Adolescent Medicine
DX: S01.81XA Laceration without foreign body of other part of head, initial encounter (principal); W22.8XXA Striking against or struck by other objects, initial encounter; Z23 Encounter for immunization
CPT/HCPCS: 12002; 70450; 90471; 90715; 99283

== ENCOUNTER 2024-02-18 10:22 | Outpatient (CLI) | payer BC, SELFPAY ==
[2024-02-18 10:33] LABS: Microscopic, Urine URINE MICROSCOPIC (MICROSCOPIC)
--- NOTE | 2024-02-18 10:42 | XR_ITS ---
FINAL REPORT CLINICAL HISTORY: FALL...LT RIB PAIN..BACK PAIN FINDINGS: THORACIC SPINE Two views demonstrate no acute fracture. The disc spaces are well preserved. There is no malalignment. IMPRESSION: No acute process. Reviewed, Interpreted and Dictated by Per Clark III, MD Transcribed by Mary Jane De La Fuente Authenticated and [facility]
--- NOTE | 2024-02-18 10:43 | XR_ITS ---
FINAL REPORT CLINICAL HISTORY: ACUTE CHEST WALL PAIN...FALL FINDINGS: TWO-VIEW CHEST The heart size is normal. The mediastinum is normal. The lungs are clear. There is no pneumothorax. There is a chronic right posterior 6th rib fracture. IMPRESSION: No acute cardiopulmonary process. Reviewed, Interpreted and Dictated by Per Clark III, MD Transcribed by Mary Jane De La Fuente Authenticated and [facility]
--- NOTE | 2024-02-18 10:43 | XR_ITS ---
FINAL REPORT CLINICAL HISTORY: .FALL..LT SIDE RIB PAIN..BACK PAIN FINDINGS: LUMBAR SPINE Three views demonstrate no acute fracture. Mild leftward curvature is identified. There are mild degenerative changes with osteophytes. There is no malalignment. IMPRESSION: No acute process. Reviewed, Interpreted and Dictated by Per Clark III, MD Transcribed by Mary Jane De La Fuente Authenticated and [facility]
--- NOTE | 2024-02-18 10:43 | XR_ITS ---
FINAL REPORT CLINICAL HISTORY: FALL..LT SIDE RIB PAIN FINDINGS: Left ribs Three views were obtained. There is no acute fracture or dislocation. No soft tissue abnormality is identified. IMPRESSION: No acute process. Reviewed, Interpreted and Dictated by Per Clark III, MD Transcribed by Mary Jane De La Fuente Authenticated and [facility]
[2024-02-18 10:47] LABS: Appearance,Urine SL CLOUDY (Clear); Blood, Urine Negative (Negative); Color,Urine AMBER (Yellow); Glucose,Urine (UA) Negative (Negative); Ketones,Urine Negative (Negative); Leukocyte Esterase,Urine Negative (Negative); Nitrate,Urine POSITIVE (Negative); Protein,Urine 1+ (Negative); Specific Gravity, Urine 1.025 (1.005-1.030)
[2024-02-18 10:48] LABS: Bilirubin,Urine 3+ (Negative)
[2024-02-18 10:50] LABS: Basophils % 0.6 % (0.1-2.0); Eosinophils % 0.4 % (0.1-12.0); Hematocrit 39.3 % (42.0-52.0); Hemoglobin 12.5 g/dL (14.1-18.0); Lymphocytes # 0.4 K/mm3 (0.7-4.5); Lymphocytes % 8.6 % (10-50); Mean Corpuscular HGB Conc 31.9 g/dL (31.8-35.4); Mean Corpuscular Hemoglobin 36.2 pg (27.0-31.2); Mean Corpuscular Volume 113.3 fl (80-94); Mean Platelet Volume 9.9 fl (7.4-10.4); Monocytes # 0.4 K/mm3 (0.1-1.0); Monocytes % 9.6 % (1.7-9.3); Neutrophils # 3.5 K/mm3 (1.8-7.8); Neutrophils % 80.8 % (37.0-80.0); Platelet Count 112 K/mm3 (142-424); Red Blood Count 3.47 M/mm3 (4.60-6.20); Red Cell Distribution Width 12.4 % (11.5-17.5); White Blood Count 4.4 K/mm3 (4.8-10.8)
[2024-02-18 11:04] LABS: Bacteria,Urine 1+ /lpf; Fine Granular Casts,Urine Occasional #/lpf (0); WBC,Urine Occasional #/hpf (0-3); White Blood Cell Casts,Urine Occasional #/lpf (0)
[2024-02-18 11:05] LABS: Activated Partial Thrombo Time 30.2 seconds (22.8-30.6); INR 1.09 (0.9-1.1); Prothrombin Time 12.1 seconds (10.1-12.5)
[2024-02-18 11:17] LABS: Cholesterol 319 mg/dl (140-200); HDL Cholesterol 32 mg/dl (40-60); Triglycerides 398 mg/dl (30-150); VLDL Cholesterol 80 mg/dL (0-40)
[2024-02-18 11:18] LABS: Alanine Aminotransferase 102 U/L (12-78); Albumin Level 3.4 g/dl (3.5-5.0); Albumin/Globulin Ratio 0.9 (1.1-1.8); Alkaline Phosphatase 564 U/L (38-126); Amylase 47 U/L (30-110); Anion Gap 10.9 mEq/L (5-15); Aspartate Amino Transferase 385 U/L (17-59); Bilirubin,Total 16.5 mg/dl (0.2-1.3); Blood Urea Nitrogen 10 mg/dl (9-20); Calcium 8.4 mg/dl (8.4-10.2); Carbon Dioxide 29 mmol/L (22.0-30.0); Chloride 101 mmol/L (98-107); Estimated Glomerular Filt Rate 146 ml/min (>60); GFR (African American) 176 ML/MIN (>60); Globulin 3.8 g/dL (1.3-3.2); Glucose 118 mg/dl (74-100); Lipase 210 U/L (23-300); Potassium 4.9 mmoL/L (3.5-5.1); Sodium 136 mmol/L (136-145); Total Protein,Serum 7.2 g/dl (6.3-8.2); Uric Acid 4.1 mg/dl (3.5-8.5)
[2024-02-18 11:26] LABS: Gamma Glutamyl Transpeptidase 2782 U/L (15-73)
[2024-02-18 13:22] LABS: Direct LDL Cholesterol 109.71 mg/dL (100-129)
== END 2024-02-18 23:59 | disposition home or self-care (01) ==
PROVIDERS: PCP Nurse Practitioner Family; Visit Provider Nurse Practitioner Family
DX: R07.89 Other chest pain (principal); G89.11 Acute pain due to trauma; R17 Unspecified jaundice; E78.00 Pure hypercholesterolemia, unspecified
CPT/HCPCS: 36415; 71046; 71100; 72072; 72100; 80053; 80061; 81001; 82150; 82977; 83690; 84550; 85025; 85610; 85730

== ENCOUNTER 2024-02-20 11:34 | Emergency (ER) | payer BC, SELFPAY ==
--- NOTE | 2024-02-20 11:38 | US_ITS ---
FINAL REPORT CLINICAL HISTORY: jaundice, eval for abnormality FINDINGS: Sonographic images of the abdomen were obtained. There is fatty infiltration of the liver. The liver is enlarged measuring 22 cm. There is nonspecific gallbladder wall thickening. The common hepatic duct measures 4 mm, which is within normal limits. Limited images of the pancreas are unremarkable. The spleen is enlarged measuring 17.2 cm. The right kidney measures 12.0 cm in length. The left kidney measures 14.4 cm in length. There is normal renal echogenicity. There is no evidence of hydronephrosis. The aorta has an unremarkable appearance. Limited images of the inferior vena cava are unremarkable. IMPRESSION: Hepatosplenomegaly. Fatty liver. Nonspecific gallbladder wall thickening. Reviewed, Interpreted and Dictated by Per Clark III, MD Transcribed by Mary Jane De La Fuente Authenticated and [facility]
--- NOTE | 2024-02-20 11:42 | PC.NURSE ---
Dr Covarrubias at [facility] for pt eval
[2024-02-20 11:47] VITALS: BP 130/85; PULSE 83; RESP 16; TEMP 36.6; O2SAT 98; BMI 26.4
[2024-02-20] MEDS: LIDOCAINE 5% TRANSDERMAL PATCH 1 EACH TP (12:03)
--- NOTE | 2024-02-20 12:28 | HMH.EDGENADL ---
Discharge Plan Disposition Patient Disposition: Xfer Short-Term Hosp Chief Complaint: Recheck/Abnormal Lab/Rx Prescriptions Prescriptions: No Action allopurinol 100 MG tablet 100 mg PO DAILY pravastatin 20 MG tablet 20 mg PO DAILY omeprazole 20 MG tablet,delayed release (DR/EC) 20 mg PO BID cefuroxime axetil 500 MG tablet 500 mg PO BID Qty: 14 0RF carvedilol 12.5 MG Tablet 12.5 mg PO BID Referrals Follow up/Referrals: Marisol Dumont APRN [Primary Care Provider] - See instructions Clinical Impressions Clinical Impression: Conjugated hyperbilirubinemia, Cholestatic jaundice Print Language Print Language: Japanese Discharge ED Provider: Donnie Covarrubias General Adult HPI General Chief complaint: Recheck/Abnormal Lab/Rx Stated complaint: liver failure and AO fall 02/14 left side pain Time Seen by Provider: 02/20/24 11:38 Mode of Arrival: Ambulatory Source of Information: Patient Limitations: No Limitations Description of Symptoms (Recalled from ER Triage Doc. by RN): pt reports he went to on 02/17 to be worked up for liver failure. per pt and his all his levels were elevated, they felt they should be admitted but were d/c home. pt came in to have his liver enzymes rechecked. pt is jaundiced and has scleral icterus but reports this has improved. pt self reports being an alcoholic. his last drink was 02/16, at this time he drank ~10 beers. pt denies use of liquor. pt reports that he occasionally smokes marijauna and he ate a delta 9 gummy this am. pt states he has had no appetite and has had N/V. pt also c/o L lower rib pain. pt states he fell off a trailer on 02/14 landing on his ribs. pt states the pain is sharp and a 9/10. pt states the pain is worse with a cough and deep breathing. History of Present Illness HPI narrative: Please note that above description of symptoms, in this electronic medical record under categorization of recalled from ER triage doctor by RN are reflective of an initial nursing assessment, however, is not reflective of my full history and physical exam that was personally taken and clarified. Consequentially, this preceding description of symptoms, which may include the patient's categorized chief complaint in the EMR, do not reflect my personal clinical impression, and the ultimate description of history of present illness and patient stated complaints should be deferred to this section of the note. Unless stated otherwise or congruent with this section of the note, additional signs, symptoms, or incongruence should be interpreted as inaccurate with my clinical impression. Related Data Home Medications ?Medication ?Instructions ?Recorded ?Confirmed carvedilol 12.5 mg tablet 12.5 mg PO BID blood pressure 10/12/18 03/08/20 allopurinol 100 mg tablet 100 mg PO DAILY High blood pressure 03/08/20 03/08/20 omeprazole 20 mg tablet,delayed 20 mg PO BID GERD 03/08/20 03/08/20 release pravastatin 20 mg tablet 20 mg PO DAILY Cholesterol 03/08/20 03/08/20 Previous Rx's ?Medication ?Instructions ?Recorded cefuroxime axetil 500 mg tablet 500 mg PO BID #14 tabs 03/10/20 Allergies Allergy/AdvReac Type Severity Reaction Status Date / Time JESUS MANUEL Inhibitors AdvReac Intermediate Cough Verified 02/20/24 12:14 [facility] Disclaimer: The information contained in this section may have been updated after the patient was seen, as this information can be updated by other users. Social History Smoking Status: Never smoker alcohol intake: current alcohol intake frequency: 3 or more drinks per day substance use type: marijuana current occupational status: employed Travel in the last 8 weeks: None household members: spouse caffeine: Yes ROS Obtained: Yes All systems reviewed & no additional complaints except as documented Physical Exam General General appearance: alert Head Head exam: atraumatic and normocephalic Eye Eye exam: Present PERRL, EOMI and scleral icterus Neck Neck exam: Present normal inspection, full ROM and trachea midline Chest Chest inspection: Present tenderness (Left posterior lateral chest wall) Respiratory Respiratory exam: Present normal lung sounds bilaterally; Absent respiratory distress, wheezes, stridor, accessory muscle use or prolonged expiratory phase Cardiovascular Cardiovascular exam: Present regular rate, normal rhythm and other (Pulses equal symmetric in upper and lower extremities) Abdominal Exam Abdominal exam: Present soft; Absent distention, tenderness or pulsatile mass Extremities Exam Extremities exam: Absent edema Back Exam Back exam: Present CVA tenderness (L) (With associated bruising from fall); Absent CVA tenderness (R) Neurological Exam Neurological exam: Present alert, oriented X3 and CN II-XII intact; Absent motor sensory deficit Skin Skin exam: Present warm, dry and other (Jaundiced); Absent diaphoresis or erythema Medical Decision Making Medical Records Medical records reviewed: Yes I reviewed the patient's medical records. Jackson Inquiry Pt receiving controlled substance: No Jackson was queried for this patient: No Vital Signs: 02/20/24 11:47 02/20/24 13:38 Temperature 97.9 F Temperature Source Oral Pulse Rate [Left] 83 Respiratory Rate 16 Blood Pressure 133/84 Blood Pressure [Right Arm] 130/85 Blood Pressure Mean 109 Blood Pressure Mean [Right Arm] 100 Blood Pressure Source [Right Arm] Automatic Cuff Blood Pressure Position [Right Arm] Sitting 02 Sat by Pulse Oximetry 98 Lab Data Lab Results 02/20/24 12:30: WBC 5.4, RBC 3.38 L, Hgb 12.4 L, Hct 38.6 L, MCV 114.3 H, MCH 36.8 H, MCHC 32.2, RDW 12.5, Plt Count 122 L, MPV 9.8, Neut % (Auto) 77.2, Lymph % (Auto) 11.7, [place] % (Auto) 9.6 H, Eos % (Auto) 0.9, Baso % (Auto) 0.6, Neut # (Auto) 4.2, Lymph # (Auto) 0.6 L, [place] # (Auto) 0.5, Eos # (Auto) 0.1, Baso # (Auto) 0.0, PT 12.3, INR 1.11 H, APTT 29.5, Sodium 136, Potassium 3.5 D, Chloride 101, Carbon Dioxide 28, Anion Gap 10.5, BUN 9, Creatinine 0.60 L, Estimated Creat Clear 199, Estimated GFR 146, Est GFR ( Amer) 176, Glucose 109 H, Calcium 8.3 L, Total Bilirubin 19.3 H* D, Direct Bilirubin 17.1 H, AST 254 H D, ALT 84 H, Alkaline Phosphatase 528 H, Ammonia 37 H, Total Protein 7.6, Albumin 3.6, Globulin 4.0 H, Albumin/Globulin Ratio 0.9 L, Lipase 114 02/20/24 12:40: Lactate 0.9 02/20/24 13:30: Urine Color Briana, Urine Appearance Cloudy, Urine pH 6.5, Ur Specific [place] 1.025, Urine Protein 3+, Urine Glucose (UA) Trace, Urine Ketones 1+, Urine Blood Trace-l, Urine Nitrate Positive, Urine Bilirubin 3+ A, Urine Urobilinogen >=8.0, Ur Leukocyte Esterase 1+ A 02/20/24 12:30 02/20/24 12:30 Orders (Tests/Meds): ED MEDICATIONS Discontinued Medications Generic Name Dose Route Start Last Admin Trade Name Vikash PRN Reason Stop Dose Admin Lactated Ringer's 1,000 mls @ 999 mls/hr 02/20/24 11:38 02/20/24 12:48 Lactated Ringer's 1000 Ml Bag IV 02/20/24 12:38 999 mls/hr .Q1H1M ONE Administration Ketorolac Tromethamine 15 mg 02/20/24 11:59 02/20/24 12:49 Ketorolac 30mg/Ml Vial IV 02/20/24 12:00 15 mg ONCE ONE Administration Lidocaine 1 each 02/20/24 11:59 02/20/24 12:03 Lidocaine 5% Transdermal Patch TP 02/20/24 12:00 1 each ONCE ONE Administration ORDERS Category Date Time Status Ammonia Stat Lab 02/20/24 12:30 Completed Bilirubin,Direct Stat Lab 02/20/24 12:30 Completed CBC w/Auto Diff [Complete Blood Count Auto Diff] Stat Lab 02/20/24 12:30 Completed CMP [Comprehensive Metabolic Panel] Stat Lab 02/20/24 12:30 Completed INR [Prothrombin Time INR] Stat Lab 02/20/24 12:30 Completed Lactic Acid Stat Lab 02/20/24 12:40 Completed Lipase Stat Lab 02/20/24 12:30 Completed PTT [Activated Partial Thrombo Time] Stat Lab 02/20/24 12:30 Completed UA [Urinalysis and Microscopic] Stat Lab 02/20/24 13:30 Results Blood Culture Stat Micro 02/20/24 12:45 Received Urine Culture Stat Micro 02/20/24 13:30 Received US abdomen complete Stat Ultrasound 02/20/24 11:38 Completed Medical Decision Narrative: This is a 43-year-old male history of ethanol abuse not currently drinking presenting with jaundice and scleral icterus. Patient states that he had a fall on 02/14 where he received bruising to his left flank, left chest wall. Was seen at outside ED at [facility], labs are concerning for elevated LFTs, hyperbilirubinemia, mildly elevated INR. CT of the abdomen pelvis was obtained as well as x-rays of traumatic areas, concern for splenomegaly and steatohepatitis. This is all per report from family and family friend who is a physician, as well as outside hospital chart review. Patient states that he was sent home from [facility] yesterday morning, 02/18 around 4 AM, since that time, scleral icterus and jaundice has improved, urine is still dark. Stating that he still having moderate to severe pain in his left flank/left posterior chest wall. No difficulty breathing, nausea, vomiting, fevers, chills, change in mental status. Made worse with coughing, changes in position. Has not been given anything for the pain or for his withdrawals. States that he saw his family doctor 2 days prior to this, was given Valium for withdrawal as. Did not sleep all night last night, took first 2.5 mg Valium this morning and he states that it helped significantly. History was obtained via conversation with patient, family, friends. On arrival, patient hemodynamically stable, alert, oriented x4, appropriate, GCS 15, moving all extremities spontaneously, pupils equal and reactive to light. Full physical exam performed and significant for jaundice, scleral icterus, but in no acute distress. Normotensive, nontachycardic, nontremulous, not responding to internal stimuli. Patient's cardiopulmonary exam within normal limits. He does have bruising and tenderness along posterior left chest wall and left flank. Seems to be resolving. Vital signs normal. Differential includes indirect versus choledocholithiasis, cholangitis, direct hyperbilirubinemia, acute liver failure, alcohol withdrawal, traumatic musculoskeletal pain, among others. Patient placed on continuous cardiac monitoring and continuous pulse ox with initial blood pressure 130/85, heart rate 83, saturation 98% on room air. Patient was given 1 L LR for symptomatic management and correction of underlying abnormalities. Workup independently interpreted and significant for nonactionable CBC with stable hemoglobin from just 2 days prior. Platelets stable as well. Coags normal. Patient's chemistry nonactionable, kidney function normal. Today, total bilirubin 19.3 with direct bilirubin 17.1. Just a couple days ago, patient's total bilirubin was 20, indirect bilirubin was 20. Alkaline phosphatase today 528, up from around 430 just 2 days prior at . AST and ALT elevated at 254 and 84 respectively. Ammonia today 37. On independent interpretation of imaging, normal common bile duct, largely nonactionable right upper quadrant ultrasound, but patient does have splenomegaly. See radiology read for full review of final results. [facility] hepatology was contacted and case was discussed at length given patient's MELD score of 20 and elevated direct hyperbilirubinemia, they recommended transfer for further evaluation. Because patient high risk for clinical decompensation if discharged, deemed appropriate for transfer and inpatient admission. Results were relayed to patient who voiced understanding and patient was agreeable to transfer, inpatient admission, and management. Patient was graciously accepted and transferred to for further definitive management, under Dr. Plummer. Founder Chairman And Chief Creative Officer disclaimer Much of this encounter note is an electronic founder chairman and chief creative officer spoken language to printed text. Electronic founder chairman and chief creative officer of the spoken language may permit errors. Although I have reviewed the note, some errors may still exist. Critical Care Critical Care Time Critical Care Time: Yes (gi) Attestation: On 02/20/24, the high probability of a clinically significant, sudden or life threatening deterioration of the following system(s) required my full and direct attention, intervention and personal management. The time I documented below is in addition to time spent performing reported procedures but includes the following listed in this critical care notation. Total Time Total Critical Care Time: 35
[2024-02-20 12:43] LABS: Basophils % 0.6 % (0.1-2.0); Eosinophils # 0.1 K/mm3 (0.0-0.4); Eosinophils % 0.9 % (0.1-12.0); Hematocrit 38.6 % (42.0-52.0); Hemoglobin 12.4 g/dL (14.1-18.0); Lymphocytes # 0.6 K/mm3 (0.7-4.5); Lymphocytes % 11.7 % (10-50); Mean Corpuscular HGB Conc 32.2 g/dL (31.8-35.4); Mean Corpuscular Hemoglobin 36.8 pg (27.0-31.2); Mean Corpuscular Volume 114.3 fl (80-94); Mean Platelet Volume 9.8 fl (7.4-10.4); Monocytes # 0.5 K/mm3 (0.1-1.0); Monocytes % 9.6 % (1.7-9.3); Neutrophils # 4.2 K/mm3 (1.8-7.8); Neutrophils % 77.2 % (37.0-80.0); Platelet Count 122 K/mm3 (142-424); Red Blood Count 3.38 M/mm3 (4.60-6.20); Red Cell Distribution Width 12.5 % (11.5-17.5); White Blood Count 5.4 K/mm3 (4.8-10.8)
[2024-02-20] MEDS: LACTATED RINGERS 1000ML 1,000 ML 999 ML IV (12:48)
[2024-02-20 12:49] LABS: Albumin Level 3.6 g/dl (3.5-5.0); Chloride 101 mmol/L (98-107)
[2024-02-20] MEDS: KETOROLAC 30MG/ML VIAL 15 MG IV (12:49)
[2024-02-20 12:50] LABS: Potassium 3.5 mmoL/L (3.5-5.1); Sodium 136 mmol/L (136-145)
[2024-02-20 12:52] LABS: Alanine Aminotransferase 84 U/L (12-78); Albumin/Globulin Ratio 0.9 (1.1-1.8); Alkaline Phosphatase 528 U/L (38-126); Ammonia 37 umol/L (9-30); Anion Gap 10.5 mEq/L (5-15); Aspartate Amino Transferase 254 U/L (17-59); Bilirubin,Direct 17.1 mg/dl (0.0-0.4); Bilirubin,Total 19.3 mg/dl (0.2-1.3); Blood Urea Nitrogen 9 mg/dl (9-20); Carbon Dioxide 28 mmol/L (22.0-30.0); Creatinine Clearance Estimated 199 mL/min (50-200); Estimated Glomerular Filt Rate 146 ml/min (>60); GFR (African American) 176 ML/MIN (>60); Lipase 114 U/L (23-300); Total Protein,Serum 7.6 g/dl (6.3-8.2)
[2024-02-20 12:53] LABS: Calcium 8.3 mg/dl (8.4-10.2); Glucose 109 mg/dl (74-100)
[2024-02-20 13:07] LABS: Lactic Acid 0.9 mmol/L (0.7-2.1)
[2024-02-20 13:10] LABS: Activated Partial Thrombo Time 29.5 seconds (22.8-30.6); INR 1.11 (0.9-1.1); Prothrombin Time 12.3 seconds (10.1-12.5)
[2024-02-20 13:33] LABS: Microscopic, Urine URINE MICROSCOPIC (MICROSCOPIC)
[2024-02-20 13:38] VITALS: BP 133/84
--- NOTE | 2024-02-20 13:41 | PC.NURSE ---
Calling [facility] transfer center at this time for possible transfer.
[2024-02-20 13:46] LABS: Appearance,Urine CLOUDY (Clear); Bilirubin,Urine 3+ (Negative); Blood, Urine TRACE-L (Negative); Color,Urine AMBER (Yellow); Glucose,Urine (UA) TRACE (Negative); Ketones,Urine 1+ (Negative); Leukocyte Esterase,Urine 1+ (Negative); Nitrate,Urine POSITIVE (Negative); PH,Urine 6.5 (5.0-8.5); Protein,Urine 3+ (Negative); Specific Gravity, Urine 1.025 (1.005-1.030); Urobilinogen,Urine >=8.0 EU/dl (0.2)
--- NOTE | 2024-02-20 13:47 | PC.NURSE ---
DOMINGUEZ OTT ON PHONE WITH [facility]
--- NOTE | 2024-02-20 13:49 | PC.NURSE ---
o/p with at this time.
[2024-02-20 14:09] LABS: Bacteria,Urine Trace /lpf; RBC,Urine Occasional #/hpf (0-3); Squamous Epithelial Cell,Urine Occasional #/hpf (0-5)
--- NOTE | 2024-02-20 14:27 | PC.NURSE ---
Report called to Sarah NICK at [facility]
[2024-02-20 14:45] VITALS: BP 145/95; PULSE 74; RESP 16; TEMP 36.6; O2SAT 97
== END 2024-02-20 14:47 | disposition short-term general hospital (02) ==
PROVIDERS: Emergency Provider Emergency Medicine; PCP Nurse Practitioner Family
DX: R07.1 Chest pain on breathing (principal); F10.188 Alcohol abuse with other alcohol-induced disorder; R17 Unspecified jaundice; E80.6 Other disorders of bilirubin metabolism; R74.01 Elevation of levels of liver transaminase levels; R94.5 Abnormal results of liver function studies; W17.89XA Other fall from one level to another, initial encounter; R11.2 Nausea with vomiting, unspecified
CPT/HCPCS: 76700; 80053; 81001; 82140; 82248; 83605; 83690; 85025; 85610; 85730; 87040; 87086; 96361; 96374; 99291; J1885; J7120

== ENCOUNTER 2024-07-06 08:44 | Outpatient (RCR) | payer BC, SELFPAY | END 2024-07-06 23:59 | disposition home or self-care (01) | LOC: OT 08:44 | PROVIDERS: Visit Provider Physician Assistant | DX: M79.642 Pain in left hand (principal); Z98.890 Other specified postprocedural states | CPT/HCPCS: 97166 ==

== ENCOUNTER 2024-07-26 08:00 | Outpatient (RCR) | payer BC, SELFPAY | END 2024-07-26 23:59 | disposition home or self-care (01) | LOC: OT 08:00 | PROVIDERS: Visit Provider Physician Assistant | DX: Z98.890 Other specified postprocedural states (principal); M79.642 Pain in left hand | CPT/HCPCS: 97014; 97110; 97140; G0283 ==

== ENCOUNTER 2025-03-18 07:17 | Outpatient (CLI) | payer BC, SELFPAY ==
--- OUTSIDE RECORDS SUMMARY | 2024-07-05 07:15 | XMS_ITS ---
Author Organization [facility] Address [address] [facility] [address] [place] [address] Care Team Providers Care Property Management Supervisor Name Role Phone Marisol Dumont Primary Care Provider MARISOL DUMONT Unavailable Unavaila ble REASON FOR VISIT blood draw Encounters Encounter Location Date Provider Diagnosis [facility] [address] [place] [address] [facility] [address] [place] [address] 07/05/2024 Marisol Dumont Plan Of Treatment No Information Progress Notes * Jimmy BHATIA BDOB:[birth year] (44 yo M)Acc No.[id number]:07/05/2024 LABS Patient: Brent Jimmy WORKMAN Provider: JENNIFER Barton :1980 A ge:43 Y S ex:Male Date:07/05/2024 Address[address] [place], [id number] Subjective: * Chief Complaints: * 1 . Blood draw. * Medical History: Objective: * Vitals: Assessment: Plan: * Treatment: * * Electronic signature of Cindy Dumont APRN on 03/18/2025 at 07:20 AM EDT Sign off status: Pending * Provider: JENNIFER Barton Date: Generated for Printi ng/Faxing/eTransmitting on: 0 03/18/2025 07:20 AM EDT
--- OUTSIDE RECORDS SUMMARY | 2024-10-09 17:30 | XMS_ITS ---
Author Organization [facility] Address [address] [place] [address] Care Team Providers Care Spar Finisher Name Role Phone Marisol Dumont Primary Care Provider [phone] MARISOL DUMONT Unavailable Unavaila ble Migration, Provider Unavailable Unavailable Allergies Allergen (clinical drug ingredient) Drug/Non Drug Allergy documented on EMR Reaction Allergy Type Onset Date Status angiotensin-converting enzyme inhibitor (FN) JESUS MANUEL Inhibitors Unknown Drug Allergy Acti ve [facility] Conversion Encounter Medications Medication SIG (Take, Route, Frequency, Duration) Notes Start Date End Date Status Vitamin E 450 MG 1 CAP(S) ORALLY ONCE A DAY OTC *Please review and pick correct [facility]. If intended option is not shown, discontinue and re-order from Quick Search* Active Omeprazole 20 MG 1 cap(s) orally once a day OTC Active Sertraline HCl 25 MG 1 tab(s) orally once a day; Duration: 90 days Active Folic Acid 1 MG 1 tab(s) orally once a day OTC Active Vitamin D (Ergocalciferol) 1.25 MG (45563 UT) 1 cap(s) orally once a week; Duration: 84 days 10/16/2023 Active Vitamin C 500 MG 1 tab(s) orally once a day OTC Active Livalo 4 MG 1 tab(s) orally once a day Active Vitamin B Complex QD OTC *Please re view and pick correct strength-formulatio n from [employer] options. If intended option is not shown, [...] Active Encounters Encounter Location Date Provider Diagnosis [facility] [address] [place] [address] 10/09/2024 Provider Migration Neuropathy G62.9 ; Hypercholesterolemia [...] * Jimmy BHATIA BDOB:[birth year] (44 yo M)Acc No.[id number]:10/09/2024 Patient: Brent WORKMAN Jimmy Owen Provider: Jai armstrong Migration :1980 A ge:44 Y S ex:Male Date:10/09/2024 Address:[facility] [address] [facility], [id number] Pcp:Marisol Dumont Subjective: * Chief Complaints: * [...] OTC, Taking Vitamin D (Ergocalciferol) 1.25 MG (99711 UT) Capsule 1 cap(s) orally once a [...] Electronic signature of Prov ider Migration on 03/18/2025 at 07:20 AM EDT Sign off status: Pending * Provider: Jai armstrong Migration Date: 0 10/09/2024 Generated for Hailey soto/Terry/Neoitting on: 0 03/18/2025 07:20 AM EDT
--- OUTSIDE RECORDS SUMMARY | 2024-10-11 04:15 | XMS_ITS ---
Author Organization [facility] Address [address] [facility] [address] [facility] [address] [place] [address] Care Team Providers Care Drug Clerk Name Role Phone Marisol Dumont Primary Care Provider [phone] MARISOL DUMONT Unavailable Unavaila ble REASON FOR VISIT blood draw Encounters Encounter Location Date Provider Diagnosis [facility] [address] [facility] [address] [facility] [address] [place] [address] 10/11/2024 Marisol Dumont Plan Of Treatment No Information Progress Notes * Jimmy BHATIA BDOB:[birth year] (44 yo M)Acc No.[id number]:10/11/2024 LABS Patient: Brent Jimmy WORKMAN Provider: JENNIFER Barton :1980 A ge:44 Y S ex:Male Date:10/11/2024 Address:[address] [place], [place] Subjective: * Chief Complaints: * 1 . Blood draw. * Medical History: Objective: * Vitals: Assessment: Plan: * Treatment: * * Electronic signature of Cindy Dumont APRN on 03/18/2025 at 07:20 AM EDT Sign off status: Pending * Provider: JENNIFER Barton Date: 0 10/11/2024 Generated for Printi ng/Faxing/eTransmitting on: 0 03/18/2025 07:20 AM EDT
--- OUTSIDE RECORDS SUMMARY | 2025-02-10 04:15 | XMS_ITS ---
Author Organization [facility] Address [address] [place] [address] Care Team Providers Care Parking Assistant Name Role Phone Masoud Dumont Primary Care Provider MASOUD DUMONT Unavailable Unavaila ble Allergies Allergen (clinical drug ingredient) Drug/Non Drug Allergy documented on EMR Reaction Allergy Type Onset Date Status angiotensin-converting enzyme inhibitor (FN) JESUS MANUEL Inhibitors Unknown Drug Allergy Acti ve Results Component Value Reference Range Notes LIPID PANEL, STANDARD (7600) Reviewed date:02/14/2025 11:16:06 AM Interpretation: Performing Lab:[facility], [facility] HospitalMhypUH[address] Demian Jernigan Notes/Report: NON-FASTING; NON-FASTING; NON-FASTING; NON-FASTING; [...] LDL-C. Gokul COTA et al. SHAWNA. 2013;310(19): 1649-0658 (http://education.[employer]page [employer]/faq/CLO552) CHOL/HDLC RATIO 4.1 <5.0 (calc) NON HDL CHOLESTEROL 134 <130 mg/dL (calc) For patients with diabetes plus 1 major ASCVD risk factor, treating to a non-HDL-C goal of <100 mg/dL (LDL-C of <70 mg/dL) is considered a therapeutic option. COMPREHENSIVE METABOLIC PANJohn Valadez (86844) Reviewed date:02/14/2025 11:16:06 AM Interpretation: Performing Lab:LINDA, [employer] [id number] [facility], [facility] HospitalLvngWG[address] Demian Jernigan Notes/Report: NON-FASTING; NON-FASTING; NON-FASTING; NON-FASTING; [...] Reviewed date:02/14/2025 11:16:06 AM Interpretation: Performing Lab:LINDA, [employer] [id number] [facility], [facility] HospitalKqaoQX[address] Demian Jernigan Notes/Report: NON-FASTING; NON-FASTING; NON-FASTING; NON-FASTING; [...] MPV 10.6 7.5-12.5 fL ABSOLUTE NEUTROPHILS 4467 9937-9516 cells/uL ABSOLUTE LYMPHOCYTES [phone] cells/uL ABSOLUTE MONOCYTES 512 200-950 cells/uL ABSOLUTE EOSINOPHILS 128 15-500 cells/uL ABSOLUTE BASOPHILS 51 0-200 cells/uL NEUTROPHILS 69.8 LYMPHOCYTES 19.4 MONOCYTES 8.0 EOSINOPHILS 2.0 BASOPHILS 0.8 PROTHROMBIN TIME-INR (8847) Reviewed date:02/14/2025 11:16:06 AM Interpretation: Performing Lab:CB, [employer] Sqhd[address]85 [facility], [facility] HospitalWdcoPD[address] Demian Jernigan Notes/Report: NON-FASTING; NON-FASTING; NON-FASTING; NON-FASTING; NON-FAST FASTING:YES FASTING: YES INR 1.0 Reference Range 0.9-1.1 Moderate-intensity Warfarin Therapy 2.0-3.0 Higher-intensity Warfarin Therapy 3.0-4.0 PT 10.8 9.0-11.5 sec For additional information, please refer to http://education.Me[employer]over/faq/DIX941 (This link is being provided for informational/ educational purposes only.) HEMOGLOBIN A1c (496) Reviewed date:02/14/2025 11:16:06 AM Interpretation: Performing Lab:LINDA [employer] [id number] [facility], [facility] HospitalWwxtPI[address] Demian Jernigan Notes/Report: NON-FASTING; NON-FASTING; NON-FASTING; NON-FASTING; [...] diagnosis of diabetes in children. According to [place] Diabetes [employer] (ADA) guidelines, hemoglobin A1c <7.0% represents optimal control in non- diabetic patients. Different metrics may apply to specific patient populations. Standards of Medical Care in Diabetes(ADA). AMMONIA (P) (5509) Reviewed date:02/14/2025 11:16:06 AM Interpretation: Performing Lab:LINDA [employer] [id number] [facility], [facility] HospitalIeiwII[address] Demian Jernigan Notes/Report: NON-FASTING AMMONIA (P) 54 [...] OTC Active Ciclopirox 8 % 1 application [employer] ally Once a day; Duration: 90 days 02/10/2025 Active Vitamin C 500 MG 1 tab(s) orally once a day OTC Active Niacin 500 MG 1 tab(s) orally 3 ti mes a day OTC Active Vitamin D (Ergocalciferol) 1.25 MG (35152 UT) 1 cap(s) orally once a week; [...] 02/10/2025 Encounters Encounter Location Date Provider Diagnosis [facility] [address] [place] [address] 02/10/2025 Masoud Dumont Neuropathy G62.9 ; Alcoholic [...] Date Notes Ciclopirox 8 % 1 application [employer] Once a day; Duration: 90 days 02/10/2025 Next Appt Details Follow Up: 4 Months, Reason: Progress Notes * Jimmy BHATIA BDOB:[birth year] (44 yo M)Acc No.[id number]:02/10/2025 Progress Notes Patient: Jimmy FIELD Provider: JENNIFER Barton :1980 A ge:44 Y S ex:Male Date:02/10/2025 Address:[facility] [address] [facility], [id number] Subjective: * Chief Complaints: * 1 . [...] , Taking Vitamin D (Ergocalciferol) 1.25 MG (30850 UT) Capsule 1 cap(s) orally once a [...] 11:16 AM EDT ?LAB: COMPREHENSIVE METABOLIC PANEL (12967)* Value Reference Range G LUCOSE 100 H [...] 11:16 AM EDT ?LAB: CBC (INCLUDES DIFF/PLT) (1114)* Value Reference Range W FILIPPO BLOOD CELL [...] - % * A BSOLUTE NEUTROPHILS 4467 3005-4844 - cells/uL * L YMPHOCYTES 19.4 - % * A BSOLUTE LYMPHOCYTES 2161 661-7019 - cells/uL * M ONOCYTES 8.0 - [...] at 11:16 AM EDT ?LAB: AMMONIA (P) (2799)* Value Reference Range A MMONIA (P) 54 < OR = 72 - umol/L * Candida Treviño 02/14/2025 11:15:58 AM EDT > Patient informedThis lab was reviewed by Candida Treviño on 02/14/2025 at 11:16 AM EDT Clinical Notes: labs today, has ongoing follow-up with hepatology.?? 3.?Hypercholesterolemia?LAB: COMPREHENSIVE METABOLIC PANEL (37764)* Value Reference Range G LUCOSE 100 H [...] 11:16 AM EDT ?LAB: CBC (INCLUDES DIFF/PLT) (6899)* Value Reference Range W FILIPPO BLOOD CELL [...] - % * A BSOLUTE NEUTROPHILS 4467 8070-1194 - cells/uL * L YMPHOCYTES 19.4 - % * A BSOLUTE LYMPHOCYTES [phone] - cells/uL * M ONOCYTES 8.0 - [...] 11:16 AM EDT ?LAB: COMPREHENSIVE METABOLIC PANEL (86080)* Value Reference Range G LUCOSE 100 H [...] 11:16 AM EDT ?LAB: CBC (INCLUDES DIFF/PLT) (3704)* Value Reference Range W FILIPPO BLOOD CELL [...] - % * A BSOLUTE NEUTROPHILS 4467 5163-5701 - cells/uL * L YMPHOCYTES 19.4 - % * A BSOLUTE LYMPHOCYTES [phone] - cells/uL * M ONOCYTES 8.0 - [...] at 11:16 AM EDT ?LAB: PROTHROMBIN TIME-INR (5726)* Value Reference Range P T 10.8 9.0-11.5 [...] Barton Date: 0 02/10/2025 Generated for Hailey soto/Terry/Neoitting on: 0 03/18/2025 07:20 AM EDT History and Physical Notes * Examination [...]
--- OUTSIDE RECORDS SUMMARY | 2025-03-04 08:30 | XMS_ITS | Encounter Summary ---
Author Organization [facility] Address [address] [place] [address] Care Team Providers Care Salesperson Flowers Name Role Phone Marisol Dumont APRN Primary Care Provider [phone] Reason for Referral * Consultation (Routine) - Authorized Specialty Diagnoses / Procedures Referred By Contac t Referred To Contact Diagnoses History of alcohol use Alcoholic cirrhosis of liver without ascites (CMS/HCC) Miguel Angel Hannon PA [address] [address] Phone: tel: fax: Referral ID Status Reason Start Date Expiration Date V isits Requested Visits Authorized [id number] Authorized 03/04/2025 09/03/2026 1 1 * Imaging (Routine) - Authorized Specialty Diagnoses / Procedures Referred By Contac t Referred To Contact Diagnoses History of alcohol use Alcoholic cirrhosis of liver without ascites (CMS/HCC) Procedures US Liver Screen Miguel Angel Hannon PA [address] [facility] [address] [place] [address] Phone: tel: fax: [facility] () [address] [place] [address] Phone: tel: fax: Referral ID Status Reason Start Date Expiration Date V isits Requested Visits Authorized [id number] Authorized 03/04/2025 09/03/2026 1 1 Reason for Visit * Reason Comments History of alcohol use Encounter Details Date Type Department Care Team (Late st Contact Info) Description 03/04/2025 8:30 AM EDT Office Visit [facility] Medicine Specialties [address] [place] [address] Miguel Angel Hannon PA [address] [place] [address] History of alcohol use (Primary Dx); Alcoholic cirrhosis of liver without ascites (CMS/HCC); BMI 29.0-29.9,adult Social History Tobacco Use Types Packs/Day Years Used Date Smoking Tobacco: Never Smokeless Tobacco: Current Snuff Alcohol Use Standard Drinks/Week Comments Not Currently 140 (1 standard drink = 0.6 oz p ure alcohol) hasnt drank since 02/19/24 Humiliation, Afraid, Rape, and Kick questionnair e Answer Date Recorded Within the last year, have y ou been afraid of your partner or ex-partner? No 02/23/2024 Within the last year, have y ou been humiliated or emotionally abused in other ways by your partner or ex-partner? No Within the last year, have y ou been kicked, hit, slapped, or otherwise physically hurt by your partner or ex-partner? No 02/23/2024 Within the last year, have y ou been raped or forced to have any kind of sexual activity by your partner or ex-partner? No 02/23/2024 PHQ-2 Answer Date Recorded Patient Health Questionnaire-2 Score 0 03/04/2025 Hunger Vital Sign Answer Date Recorded Within the past 12 months, y ou worried that your food would run out before you got the money to buy more. Never true 02/23/20 24 Within the past 12 months, t he food you bought just didn't last and you didn't have money to get more. Never true 02/23/2024 PRAPARE - Transportation Answer Date Re corded In the past 12 months, has l ack of transportation kept you from medical appointments or from getting medications? No 02/04 In the past 12 months, has l ack of transportation kept you from meetings, work, or from getting things needed for daily living? No 02/23/2024 Housing Stability Vital Sign Answer Nima e Recorded In the last 12 months, was t here a time when you were not able to pay the mortgage or rent on time? No 02/23/2024 In the last 12 months, how many places have you lived? 1 02/23/2024 In the last 12 months, was t here a time when you did not have a steady place to sleep or slept in a fdc (including now)? No 02/23/2024 PHQ-9 Answer Date Recorded Patient Health Questionnaire-9 Score 0 03/04/2025 CAGE ASSESSMENT Answer Date Recorded Cage unable to access Not on file 02/20/2024 Cage max number of drinks Not on file 2023 Cage Beverages a week Not on file 02/20/2024 Have you ever felt you should CUT down on your d rinking? 1 02/20/2024 Have you been ANNOYED by people criticizing your drinking? 1 02/20/2024 Have you felt GUILTY about your drinking? 1 02/20/2024 Have you had a drink first t karon in the morning (E[employer]OR) to steady your nerves or to get rid of a hangover? 1 02/20/2024 CAGE Questionnaire Score 4 024 Utilities Answer Date Recorded In the past 12 months has th e electric, gas, oil, or water company threatened to shut off services in your home? No 02/23/2024 Sex and Gender Information Value Date Recorded Sex Assigned at Not on file Legal Sex Male 1:44 PM EDT Gender Identity Not on file Sexual Orientation Not on file documented as of this encounter Last Filed Vital Signs Vital Sign Reading Time Taken Comments Blood Pressure - - Pulse - - Temperature - - Respiratory Rate - - Oxygen Saturation - - Inhaled Oxygen Concentration - - Weight 99.8 kg (220 lb) 03/04/2025 8:28 AM EDT Height 185.4 cm (6' 1 ) 03/04/2025 8:28 AM EDT Body Mass Index 29.03 03/04/2025 8:28 AM EDT documented in this encounter Functional Status * Over the past 2 weeks, how often have you been bothered by any of the following problems? Question Answer Date of Assessment Author Little interest or pleasure in doing things Not at all 03/04/2025 8:35 AM Hammad Ott Feeling down, depressed, or hopeless Not at all 03/04/2025 8:35 AM Hammad Ott Patient Health Questionnaire -2 Score 0 03/04/2025 8:35 AM Hammad Ott * Question Answer Date of Assessment Author Trouble falling or staying a sleep, or sleeping too much Not at all 03/04/2025 8:35 AM Hammad Ott Feeling tired or having andrzej le energy Not at all 03/04/2025 8:35 AM Hammad Ott Poor appetite or overeating Not at all 03/04/2025 8: 35 AM Hammad Ott Feeling bad about yourself - or that you are a failure or have let yourself or your family down Not at all 03/04/2025 8:35 AM Hammad Ott Trouble concentrating on thi ngs, such as reading the newspaper or watching television Not at all 03/04/2025 8:35 AM Hammad Ott Moving or speaking so slowly that other people could have noticed? Or the opposite - being so fidgety or restless that you have been moving around a lot more than usual. Not at all 03/04/2025 8:35 AM Hmamad Ott Thoughts that you would be b alex off or hurting yourself in some way Not at all 03/04/2025 8:35 AM Hammad Ott Patient Health Questionnaire -9 Score 0 03/04/2025 8:35 AM Hammad Ott * If you checked off any problems on this questionnaire so far, Question Answer Date of Assessment Author How difficult have these problems made it for you to do your work, take care of things at home, or get along with other people? Not difficult at all 03/04/2025 8:35 AM Hammad Ott documented as of this encounter Miscellaneous Notes * Progress Notes - Miguel Angel Hannon PA - 03/04/2025 8:30 AM EDT General Hepatology Note - Telehealth Subjective Patient ID: Jimmy Montano is a 44 y.o. male. The following portions of the chart were reviewed this encounter and updated as appropriate: Tobacco Allergies Meds Problems Med Hx Surg Hx Fam Hx Chief Complaint Patient presents with History of alcohol use History of Presenting Illness Jimmy Montano is a 44 y.o. male presenting for follow up of liver cirrhosis. He has an additional past medical history of HLD, HTN, Alcohol use disorder, and Nicotene Dependence. He is accompaniedby his today in clinic. He was originally seen in clinic for consultation in June. The patient reports he has been doing well overall. He has not significant concerns at this time. He is still working daytime babysitter, and long hours. He is very active during the day. He does have some swelling in his feet some days, but he reports if he eats food it will improve. He is eating protein, and drinking protein shakes a few times daily while he is working. He reports ongoing neuropathy that has worsened since he stopped drinking alcohol. He is on lyrica and it helps reduce the 'pins and needles' sensation. He is also on potassium three times daily. He denies taking water pills/diuretics at this time. He does remain on coreg for his blood pressure. He continues to abstain from all alcohol use. Patient uses marijuana in the form of gummies and delta. He reports normal/healthy bowel habits. Patient denies dysphagia, chest pain, abdominal pain. No abdominal distention or lower leg swelling. No nausea, vomiting, diarrhea or constipation. No hematemesis, hematochezia or melena reported. Noconfusion or memory changes. No fever or chills. No unintentional weight changes. No jaundice or icterus. No NSAID use; previously was taking 400mg daily. Currently using on APAP as needed. No tobacco use. Mother had cirrhosis; underlying cause was MASH related. US Liver Screen 10/22/2024: Nodular liver outline for example image 14. Echotexture is subtly coarse. Normal echogenicity. There are 2 subcentimeter hypoechoic nodules in the right hepatic lobe measuring 5 mm and 4 mm respectively (series 5 and image 15) which are seen only on the sagittal plane but not on the transverse cines; favoring artifact secondary to mild coarseness of echotexture. There is antegrade flow within the main portal vein. Unremarkable gallbladder without evidence of wall thickening, pericholecystic fluid or gallstones. CBD 3mm. Borderline enlarged spleen measuring 14.5cm. No ascites. MRCP with MR Elastography 04/15/2024: No gallstones or pericholecystic edema. No intrahepatic or extrahepatic biliary ductal dilatation. Homogenous signal intensity. No suspicious lesions. Noncirrhotic liver morphology. No hepatic steatosis or iron deposition. No suspicious hepatic lesions. Spleen is 17cm. Unremarkable adrenal glands. Homogenous and symmetric parenchymal enhancement bilaterally. No suspicious renal lesions. No hydronephrosis. No ascites. Normal caliber aorta and IVC and patent major abdominal vasculature. No adenopathy. No acute or aggressive lesions. Trace right-sided pleural effusions. MRE reflects mean stiffness value 5.9 kPa. EGD 04/07/2024: The esophagus appeared normal. Mild erythematous mucosa in the body of the stomach and antrum; performed cold forceps biopsy. The duodenum appeared normal. Chronic gastritis. Negativeimmunohistochemical stain for H Pylori organisms. Colonoscopy 04/07/2024: Subcentimeter polyp in the cecum. Resected and retrieved. Otherwise normal colon. Tubular adenoma Repeat [address] Abd/Pelvis 02/20/24: Hepatic steatosis without suspicious lesions. Normal Gallbladder. No intra- or extra-hepatic biliary ductal dilatation. Splenomegaly 18cm. The pancreas enhances homogeneously. The adrenals are morphologically unremarkable. The kidneys demonstrate symmetric nephrogram and excretion. No renal or ureteral calculi. No hydronephrosis. Lower esophagus and stomach are unremarkable. The small bowel loops are not dilated. The large bowel loops are not dilated. The appendix is visualized and normal. The abdominal aorta is unremarkable. No lymphadenopathy within the abdomen or pelvis. No free fluid in the abdomen. Small volume pelvic free fluid. The pelvic viscera are unremarkabl e.Mild bladder wall thickening. Small fat-containing umbilical hernia. No acute fracture. Past Medical History Past Medical History: Diagnosis Date Alcohol use disorder 02/20/2024 Anxiety Cirrhosis (CMS/HCC) Depression Gout 02/20/2024 HLD (hyperlipidemia) 02/20/2024 HTN (hypertension) 02/20/2024 Nicotine dependence 02/20/2024 Surgical History Past Surgical History: Procedure Laterality Date OTHER SURGICAL HISTORY Dupuytren's contracture Family History Family History Problem Relation Name Age of Onset Hypertension Mother Mom Hyperlipidemia Mother Mom Cirrhosis Mother Mom Alcohol abuse Mother Mom Hypertension Father Bill Hyperlipidemia Father Bill Social History Social History Socioeconomic History Marital status: Spouse name: Not on file Number of children: Not on file Years of education: Not on file Highest education level: Not on file Occupational History Not on file Tobacco Use Smoking status: Never Smokeless tobacco: Current Types: Snuff Vaping Use Vaping status: Never Used Substance and Sexual Activity Alcohol use: Not Currently Alcohol/week: 140.0 standard drinks of alcohol Types: 140 Cans of beer per week Comment: hasnt drank since 02/19/24 Drug use: Yes Frequency: 2.0 times per week Types: Marijuana Sexual activity: Defer Other Topics Concern Not on file Social History Narrative Not on file Social Drivers of Health Financial Resource Strain: Not on file Food Insecurity: No Food Insecurity (02/23/2024) Hunger Vital Sign Worried About Running Out of Food in the Last Year: Never true Ran Out of Food in the Last Year: Never true Transportation Needs: No Transportation Needs (02/23/2024) PRAPARE - Transportation Lack of Transportation (Medical): No Lack of Transportation (Non-Medical): No Physical Activity: Not on file Stress: Not on file Social Connections: Not on file Intimate Partner Violence: Not At Risk (02/23/2024) Humiliation, Afraid, Rape, and Kick questionnaire Fear of Current or Ex-Partner: No Emotionally Abused: No Physically Abused: No Sexually Abused: No Housing Stability: Low Risk (02/23/2024) Housing Stability Vital Sign Unable to Pay for Housing in the Last Year: No Number of Places Lived in the Last Year: 1 Unstable Housing in the Last Year: No Review of Systems A 14 point review of systems negative except for HPI Outpatient Medications Current Outpatient Medications Medication Instructions allopurinol (ZYLOPRIM) 100 mg, Daily Ascorbic Acid (vitamin C) 500 MG tablet 1 tablet, Oral, Daily B Complex Vitamins (vitamin B complex) tablet Every 24 hours carvedilol (COREG) 12.5 mg, 2 times daily with meals diazePAM (VALIUM) 5 mg, Every 8 hours PRN ergocalciferol (VITAMIN D-2) 50,000 Units, Weekly folic acid (Folvite) 400 MCG tablet Daily Milk Thistle 250 MG capsule Take by mouth. niacin 500 MG tablet 1 tablet, Oral, 3 times daily Niacin-Inositol (Niacin Flush Free) 400-100 MG capsule 400 mg omeprazole (PriLOSEC) [address] capsule 1 capsule, Oral, Daily ondansetron (Zofran) 8 MG tablet ondansetron (ZOFRAN) 4 mg, Every 8 hours PRN Pitavastatin Calcium 2 MG tablet Pitavastatin Calcium 4 mg, Daily pregabalin (Lyrica) 75 MG capsule Every 12 hours sertraline (ZOLOFT) 25 mg, Daily traMADol (Ultram) 50 MG tablet TAKE 1 TABLET BY MOUTH EVERY 6 HOURS NEEDED FOR PAIN FOR 5 DAYS traZODone (DESYREL) 50 mg, Oral, Nightly Turmeric Curcumin (Turmeric Complex/Black Pepper) 5-1000 MG capsule Take by mouth. UNABLE TO FIND Apply 1 or 2 grams of pain gel to affected areas three to four times a day. Vitamin E 450 MG (1000 UT) capsule 1 capsule, Oral, Daily Allergies Allergies Allergen Reactions Richard Inhibitors Cough Vaccinations Immunization History Administered Date(s) Administered Hep B, Adolescent/High Risk 02/11/1997, 07/13/1997 Brenna COVID-19 Vaccine (Blue Cap) 18+ 10/07/2020 TD (adult), 2 Lf tetanus toxoid, preservative free, adsorbed 09/17/1996 Tdap 09/28/2023 Vital Signs Visit Vitals Ht 1.854 m (6' 1 ) Wt 99.8 kg (220 lb) BMI 29.03 kg/m?? Smoking Status Never BSA 2.27 m?? Physical Exam General - Well nourished and developed. He is in no acute distress. Appears stated age. HEENT - No scleral icterus, EOMI, atraumatic, normocephalic; ears located midway on head with normal appearance, nose midline without discharge. Respiratory - Respiratory rate even and non-labored Dermatologic - No jaundice. Neuro - Oriented to time and place. Psychiatric - Pleasant, calm, cooperative. Labs Computed MELD 3.0 unavailable. One or more values for this score either were not found within the given timeframe or did not fit some other criterion. Computed MELD-Na unavailable. One or more values for this score either were not found within the given timeframe or did not fit some other criterion. Updated MELD from Outside labs 04/29/24: MELD 6 AFP Lab Results Component Value Date/Time AFP 9.2 02/20/20249 HgB Lab Results Component Value Date/Time HGB 10.0 (L) 02/24/2024 0516 HGB 10.1 (L) 02/23/2024 0452 WBC Lab Results Component Value Date/Time WBC 4.87 02/24/2024 0516 WBC 4.94 02/23/2024 0452 PLT Lab Results Component Value Date/Time PLT 133 (L) 02/24/2024 0516 PLT 119 (L) 02/23/2024 0452 A1c No results found for: HGBA1C Lab Results Component Value Date/Time AST 58 (H) 02/24/2024 0516 ALT 29 02/24/2024 0516 ALKPHOS 355 (H) 02/24/2024 0516 BILITOT 7.3 (H) 02/24/2024 0516 INR 1.1 02/23/2024 0452 PLT 133 (L) 02/24/2024 0516 ALBUMIN 2.8 (L) 02/24/2024 0516 HEPBSAG Negative 02/20/2024 2148 HECG Negative 02/20/2024 1728 HAG Negative 02/20/2024 2148 FERRITIN 1,968 (H) 02/20/20242148 TIBC 133 (L) 02/20/2024 1728 CERULOPLSM 42 02/20/2024 2148 CREATININE 0.74 02/24/2024 0516 CHOL 253 (H) 02/20/2024 1728 LDLCALC 196 (H) 02/20/2024 1728 HDL 15 (L) 02/20/2024 1728 TRIG 215 (H) 02/20/2024 1728 AFP 9.2 02/20/2024 2149 HGB 10.0 (L) 02/24/2024 0516 TSH 1.94 02/20/2024 1728 Assessment and Plan Problem List Items Addressed This Visit None Visit Diagnoses History of alcohol use - Primary Relevant Orders US Liver Screen Follow Up GI Alcoholic cirrhosis of liver without ascites (CMS/HCC) Relevant Orders US Liver Screen Follow Up GI BMI 29.0-29.9,adult #Liver Cirrhosis - Secondary to alcohol use. Metabolic history otherwise is limited. - Previous work up negative for correlation with autoimmune hepatitis, viral hepatitis or congential contributors. - Patient treated for alcoholic hepatitis in February 2024. MELD score at that time was 17 with elevated tBili up to 19.9; now normalized. MELD 6 persistently. - EGD is negative for esophageal varices. He is on Coreg twice daily for history of HTN. - No stigmata of advanced liver disease or anything concerning for portal hypertension. - MRCP with MR Elastography 04/15/2024: No gallstones or pericholecystic edema. No intrahepatic or extrahepatic biliary ductal dilatation. Homogenous signal intensity. No suspicious lesions. Noncirrhotic liver morphology. No hepatic steatosis or iron deposition. No suspicious hepatic lesions. Spleen is 17cm. Unremarkable adrenal glands. Homogenous and symmetric parenchymal enhancement bilaterally. No suspicious renal lesions. No hydronephrosis. No ascites. Normal caliber aorta and IVC and patent major abdominal vasculature. No adenopathy. No acute or aggressive lesions. Trace right-sided pleural effusions. MRE reflects mean stiffness value 5.9 kPa. - Reassured potential need for transplant, if he continues to progress in positive direction, should be very limited. - Continue to get labs local to home' - Continue to abstain from alcohol - CBC, CMP, ND/INR and AFP pending - US Liver screen is due April 2025. #Healthcare Maintenance Immunity to Hepatitis A- No immunity Immunity to Hepatitis B- No immunity HBsAg - Negative EGD 04/07/2024: The esophagus appeared normal. Mild erythematous mucosa in the body of the stomach and antrum; performed cold forceps biopsy. The duodenum appeared normal. Chronic gastritis. Negativeimmunohistochemical stain for H Pylori organisms. Colonoscopy 04/07/2024: Subcentimeter polyp in the cecum. Resected and retrieved. Otherwise normal colon. Tubular adenoma Repeat 7 years. RTC 6 Months documented in this encounter Plan of Treatment Upcoming Encounters Date Type Department Care Team (Late st Contact Info) Description 09/13/2025 9:00 AM EDT Office Visit [facility] Medicine [facility]ties [address] [place] [id number] Miguel Angel Hannon PA [address] [place] [address] Scheduled Orders Name Type Priority Associated Diagnoses Orde r Schedule US Liver Screen Imaging Routine History of alcohol use Alcoholic cirrhosis of liver without ascites (CMS/HCC) Expected: 03/04/2025 (Approximate), Expires: 09/05/2026 Scheduled Referrals Name Type Priority Associated Diagnoses Orde r Schedule Follow Up GI Outpatient Referral Routine History of alcohol use Alcoholic cirrhosis of liver without ascites (CMS/HCC) Expected: 09/03/2025, Expires: 04/04/2026 documented as of this encounter Visit Diagnoses Diagnosis History of alcohol use- Primary Alcoholic cirrhosis of liver without ascites (CMS/HCC) BMI 29.0-29.9,adult documented in this encounter Additional Health Concerns Assessment Noted Time PHQ-9 Depression Total Score: 0 03/04/20 25 8:35 AM EDT A fall risk assessment has been complete d for the patient 06/24/2024 10:26 AM EST A Body Mass Index follow-up plan has been documented for the patient 03/13/2025 10:46 PM EDT documented as of this encounter Care Teams Salesperson Flowers Relationship Specialty Start Date End Date Marisol Dumont APRN [address] [place] [id number] PCP - General 02/20/24 documented as of this encounter
--- OUTSIDE RECORDS SUMMARY | 2025-03-18 07:20 | XMS_ITS | Encounter Summary ---
Author Organization Healthcare Address [address] [place] [address] Care Team Providers Care Wallboard Worker Name Role Phone Marisol Dumont Rory MANN Primary Care Provider +1- [phone] Encounter Details Date Type Department Care Team (Latest Contact Info) Description 03/03/2025 Travel Social History Tobacco Use Types Packs/Day Years Used Date Smoking Tobacco: Never Smokeless Tobacco: Current Snuff Alcohol Use Standard Drinks/Week Comments Not Currently 140 (1 standard drink = 0.6 oz p ure alcohol) Humiliation, Afraid, Rape, and Kick questionnair e [...] drink first t karon in the morning (EYE-MUSIC MIXER) to steady your nerves or to get [...] on file documented as of this encounter Plan of Treatment Upcoming Encounters Date Type Department Care Team (Late st Contact Info) Description 09/13/2025 9:00 AM EDT Office Visit [facility] Medicine Specialties [address] [place] [address] Miguel Angel Hannon PA [address] [place] [address] documented as of this encounter Visit Diagnoses Not on filedocumented in this encounter Additional Health Concerns Assessment Noted Time PHQ-9 Depression Total Score: 0 06/24/20 10:26 AM EST A fall risk assessment has been complete d for the patient 06/24/2024 10:26 AM EST A Body Mass Index follow-up plan has been documented for the patient 07/03/2024 6:12 AM EST documented as of this encounter Care Teams Wallboard Worker Relationship Specialty Start Date End Date Marisol Dumont APRN [facility] [address] [address] PCP - General 02/20/24 documented as of this encounter
--- OUTSIDE RECORDS SUMMARY | 2025-03-18 07:20 | XMS_ITS | Clinical Summary ---
Author Organization [facility] Address [address] [place] [address] Care Team Providers Care Pipe And Boiler Covers Supervisor Name Role Phone JuliaMarisol beasley Rory MANN Primary Care Provider +1- [phone] Allergies Active Allergy Reactions Criticality Noted Date Comments Richard Inhibitors Cough Low 02/21/2024 Medications allopurinol (Zyloprim) 100 MG tablet Take 1 tablet (100 mg) by mouth 1 (one) time each day. Active diazePAM (Valium) 5 MG tablet Take 1 tablet (5 mg) by mouth every 8 (eight) hours if needed for anxiety. Active ergocalciferol (Vitamin D-2) 1.25 MG (71086 UT) capsule Take 1 capsule (50,000 Units) by mouth 1 (one) time per week. Active ondansetron (Zofran) 4 MG tablet Take 1 tablet (4 mg) by mouth every 8 (eight) hours if needed for nausea or vomiting. Active Pitavastatin Calcium 4 MG tablet Take 4 mg by mouth 1 (one) time each day. Active sertraline (Zoloft) 25 MG tablet Take 1 tablet (25 mg) by mouth 1 (one) time each day. Active traZODone (Desyrel) 50 MG tablet Take 1 tablet (50 mg) by mouth every night. 30 tablet 4 Active Additional Information Patient not taking.Reported on 03/04/2025 ondansetron (Zofran) 8 MG tablet 4 Active pregabalin (Lyrica) 75 MG capsule every 12 (twelve) hours. 4 Active traMADol (Ultram) 50 MG tablet TAKE 1 TABLET BY MOUTH EVERY 6 HOURS NEEDED FOR PAIN FOR 5 DAYS 4 Active UNABLE TO FIND Apply 1 or 2 grams of pain gel to affected areas three to four times a day. 4 Active Milk Thistle 250 MG capsule Take by mouth. Active Turmeric Curcumin (Turmeric Complex/Black Pepper) 5-1000 MG capsule Take by mouth. Acti ve folic acid (Folvite) 400 MCG tablet Take by mouth 1 (one) time each day. Active Niacin-Inosito l (Niacin Flush Free) 400-100 MG capsule Take 400 mg by mouth. Active Ascorbic Acid (vitamin C) 500 MG tablet Take 1 tablet by mouth Daily. Active B Complex Vitamins (vitamin B complex) tablet 1 (one) time each day at the same time. Active niacin 500 MG tablet Take 1 tablet by mouth 3 times a day. Active omeprazole (PriLOSEC) [address] capsule Take 1 capsule by mouth Daily. Active Vitamin E 450 MG (1000 UT) capsule Take 1 capsule by mouth Daily. Active carvedilol (Coreg) 12.5 MG tablet Take 1 tablet by mouth 2 times a day with meals. 5 Active Pitavastatin Calcium 2 MG tablet 5 Active carvedilol (Coreg) 25 MG tablet Take 1 tablet (25 mg) by mouth 2 (two) times a day with meals. 025 Discontinu ed(Per Patient Report) Active Problems Problem Noted Date Diagnosed Date Alcoholic hepatitis 02/21/2024 Metabolic dysfunction-associated steatohepatitis (MASH) 02/21/2024 HTN (hypertension) 02/20/2024 HLD (hyperlipidemia) 02/20/2024 Gout 02/20/2024 Alcohol use disorder 02/20/2024 Nicotine dependence 02/20/2024 Hypomagnesemia 02/20/2024 Hypokalemia 02/20/2024 Hematoma 02/20/2024 Alcohol withdrawal 02/20/2024 Resolved Problems Problem Noted Date Diagnosed Date Resolved Date Alcoholic cirrhosis of liver without ascites 4 02/21/2024 Encounters Date Type Department Care Team Description 03/10/2025 [facility]phone [facility] [address] [place] [address] Haylee Washington Ultrasound 03/04/2025 8:30 AM EDT [facility] Visit [facility] [address], [address] [place] [address] Miguel Angel Hannon PA History of alcohol use (Primary Dx); Alcoholic cirrhosis of liver without ascites (CMS/HCC); BMI 29.0-29.9,adult 03/03/2025 Travel from Last 3 Months Immunizations Immunization Administration Dates Next Due Hep B, Adolescent/High Risk Infant 07/13/1997, TD (adult), 2 Lf tetanus tox oid, preservative free, adsorbed 09/17/1996 Tdap 09/28/2023 Family History Medical History Relation Name Comments Hyperlipidemia Father Bill Hypertension Father Bill Alcohol abuse Mother Mom Cirrhosis Mother Mom Hyperlipidemia Mother Mom Hypertension Mother Mom Relation Name Status Comments Father Bill Mother Mom Social History Tobacco Use Types Packs/Day Years Used Date Smoking Tobacco: Never Smokeless Tobacco: Current Snuff Tobacco Cessation:Ready to Q uit: Not Asked; Counseling Given: Not Answered Alcohol Use Standard Drinks/Week Comments Not Currently [...] place to sleep or slept in a usp (including now)? No 02/23/2024 PHQ-9 Answer Date [...] drink first t karon in the morning (EYE-ORGANIZATIONAL DEVELOPMENT CONSULTANT) to steady your nerves or to get rid of a hangover? 1 02/20/2024 CAGE Questionnaire Score 4 024 Utilities Answer Date Recorded In the past 12 months has th e mobicanvas, gas, oil, or water company threatened to shut off services in your home? No 02/23/2024 Sex and Gender Information Value Date Recorded Sex Assigned at Not on file Legal Sex Male 1:44 PM EDT Gender Identity Not on file Sexual Orientation Not on file Last Filed Vital Signs Vital Sign Reading Time Taken Comments Blood Pressure 133/80 06/24/2024 10:31 AM EST Pulse 80 06/24/2024 10:31 AM EST Temperature 36.7 C (98 F) 06/24/2024 10:31 AM EST Respiratory Rate 14 04/07/2024 2:15 PM EDT Oxygen Saturation 97% 06/24/2024 10:31 AM EST Inhaled Oxygen Concentration - - Weight 99.8 kg (220 lb) 03/04/2025 8:28 AM EDT Height 185.4 cm (6' 1 ) 03/04/2025 8:28 AM EDT Body Mass Index 29.03 03/04/2025 8:28 AM EDT Plan of Treatment Upcoming Encounters Date Type Department Care Team (Late st Contact Info) Description 09/13/2025 9:00 AM EDT [facility] [address] [place] [address] Miguel Angel Hannon PA [address] [place] [address] Health Maintenance Due Date Last Done Comments [facility]-Infant/Child/Adol SDOH Screenings 1978 [facility]- SDOH Screenings 1996 [facility]-Adult SDOH Screenings 1996 [facility]-Hepatitis A Vaccines (1 of 2 - Risk 2-dose series) 1997 [facility]-Pneumococcal Vaccine: Pediatrics (0 to 5 Years) and At-Risk Patients (6 to 49 Years) (1 of 2 - PCV) 1997 [facility]-Hepatitis B Vaccines (3 of 3 - 3-dose series) 09/07/1997 07/13/1997, 02/11/1997 [id number] Vaccine (2 - Brenna risk series) 11/04/2020 10/07/2020 CT Colonography 2023 FIT-DNA 2023 FIT 2023 FOBT 2023 Sigmoidoscopy 2023 [facility]-Influenza Vaccine (#1) 2025 [facility]-Depression Screening 03/04/2026 03/04/2025, 02/05 [facility]-Zoster Vaccines (1 of 2) 2028 Colonoscopy 04/06/2031 04/07/2024 [facility]-Colorectal Cancer Screening 04/06/2031 [facility]-DTaP,Tdap,and Td Vaccines (3 - Td or Tdap) 09/27/2033 09/28/2023, 09/17/1996 [facility]-HIV Screening Completed 02/20/2024 [facility]-Hepatitis C Screening Completed 02/20/2024, [facility]-Obesity Intervention Completed 025, 06/24/2024, 03/04/2024, Additional history exists HPV Vaccines Aged Out No longer eligi ble based on patient's age to complete this topic [facility]-HIB Vaccines Aged Out No longer e ligible based on patient's age to complete this topic [facility]-IPV Vaccines Aged Out No longer e ligible based on patient's age to complete this topic [facility]-Rotavirus Vaccines Aged Out No lo nger eligible based on patient's age to complete this topic Procedures Procedure Name Priority Date/Time Associated Diagnosis Comments COLONOSCOPY Routine 04/07/2024 1:49 PM EDT Colon cancer screening HEPATITIS C ANTIBODY - ED W/REFLEX TO HCV QUANT PCR STAT 02/20/2024 5:28 PM EDT ED HIV 1/2 ANTIBODY/ANTIGEN SCREEN WITH REFLEX TO HIV I/II DIFFERENTIATION STAT 02/20/2024 5:28 PM EDT from Last 3 Months or Most Recently Relevant to Health Maintenance Results * Colonoscopy (04/07/2024 1:49 PM EDT) Anatomical Region Laterality Modality Endoscopy Addenda Addendum by Gucci Reyes MD on 04/19/2024 9:08 AM EDT Table formatting from the original result was not included. Impression: Subcentimeter polyp in the cecum. Resected and retrieved. Otherwise normal colon. Recommendations Await pathology results Repeat colonoscopy in 7 years Indication Screen for Colorectal Cancer, Average Risk Medications See anesthesia record for anesthesia administered medications. Staff Staff Role Eleutreio Vale CRNA CRNA Crouch, Alexandra M, RN Endo Nurse Neil Skinner MD Anesthesiologist Gucci Reyes MD Proceduralist Cristobal Calvin Endo Oil Inspector Preprocedure A history and physical has been performed, and patient medication allergies have been reviewed. The patient's tolerance of previous anesthesia has been reviewed. The risks and benefits of the procedure and the sedation options and risks were discussed with the patient. All questions were answered and informed consent obtained. Details of the Procedure The patient underwent monitored anesthesia care, which was administered by an anesthesia professional. The patient's blood pressure, heart rate, level of consciousness, respirations and oxygen were monitored throughout the procedure. A digital rectal exam was performed. A perianal exam was performed. The scope was introduced through the anus and advanced to the cecum. Retroflexion was performed in the rectum. The quality of bowel preparation was evaluated using the [place] Bowel Preparation Scale with scores of: right colon = 2, transverse colon = 2, left colon = 2. The total BBPS score was 6. Bowel prep was adequate. The patient experienced no blood loss. The procedure was not difficult. The patient tolerated the procedure well. There were no apparent adverse events. Attestation I personally performed the entire procedure Events Procedure Events Event Event Time ENDO SCOPE IN TIME 04/07/2024 1:24 PM ENDO SCOPE OUT TIME 04/07/2024 1:29 PM ENDO SCOPE IN TIME 04/07/2024 1:32 PM ENDO CECUM REACHED 04/07/2024 1:37 PM ENDO SCOPE OUT TIME 04/07/2024 1:48 PM Specimens ID Type Source Tests Collected by Time A : Gastric Biopsies Tissue Stomach SURGICAL PATHOLOGY EXAM Gucci Reyes MD 04/07/2024 1328 B : Cecal Polyp Tissue Cecum SURGICAL PATHOLOGY EXAM Gucci Reyes MD 04/07/2024 1340 Findings One 4 mm polyp in the cecum. En bloc resection with cold snare was complete, retrieval was complete. All other observed locations appeared normal. Miguel Angel CONTRERAS GI PROCEDURE ORDERABLES Edited Result - Final * ED HIV 1/2 Antibody/Antigen Screen w/Reflex to HIV 1/2 Differentiation (02/20/2024 5:28 PM EDT) HIV 1 & 2 Antibody/Antigen Screen Non Reactive Non Reactive 02/20/2024 6:18 PM EDT [facility] Comment:Screening for HIV 1 & 2 antibodies, and P24 antigen is NONREACTIVE. No confirmatory testing is required. Blood Venous blood specimen / Unknown Venipuncture / Unknown 02/20/2024 5:28 PM EDT 02/20/2024 5:39 PM EDT Bree Vazquez [facility] BLOOD ORDERABLES Final Result [facility] [address] [place] [address] * Hepatitis C Antibody - ED (02/20/2024 5:28 PM EDT) Hepatitis C Antibody Negative Negative 02/20/2024 6:14 PM EDT [facility]ALTHCARE [facility] Blood Venous blood specimen / Unknown Venipuncture / Unknown 02/20/2024 5:28 PM EDT 02/20/2024 5:39 PM EDT Bree Vazquez [facility] BLOOD ORDERABLES Final Result Performing Organization Address City/[facility] Co de Phone Number [facility] [address] [place] [address] from Last 3 Months or Most Recently Relevant to Health Maintenance Insurance ANTH Advance Directives * Full Code (Latest Code Status on File) Date Activated Date Inactivated Comments 02/20/2024 8:36 PM 02/24/2024 5:03 PM Question Answer Comments Patient has decision-making capacity? Yes Care Teams Pipe And Boiler Covers Supervisor Relationship Specialty Start Date End Date Marisol Dumont APRN [address] [place] [id number] [facility] - General 02/20/24
--- OUTSIDE RECORDS SUMMARY | 2025-03-18 07:20 | XMS_ITS | Encounter Summary ---
Author Organization [facility] Address [address] [place] [id number] Care Team Providers Care Mixer Attendant Name Role Phone JuliaMarisol beasley Rory MANN Primary Care Provider +1- [phone] Reason for Visit * Reason Onset Date Comments Ultrasound 03/10/2025 Encounter Details Date Type Department Care Team (Late st Contact Info) Description 03/10/2025 Telephone ID [facility] [address] [place] [address] [place] [address] Ultrasound Social History Tobacco Use Types Packs/Day Years [...] place to sleep or slept in a [facility] (including now)? No 02/23/2024 PHQ-9 Answer Date [...] drink first t karon in the morning (EYE-DIRECTOR OF GRADUATE ADMISSIONS) to steady your nerves or to get [...] on file documented as of this encounter Miscellaneous Notes * Telephone Encounter - Haylee Washington - 03/10/2025 2:12 PM EDT Faxed US order to [facility] F: [phone] documented in this encounter Plan of Treatment Upcoming Encounters Date Type Department Care Team (Late st Contact Info) Description 09/13/2025 9:00 AM EDT Office Visit [facility] [address] [place] [address] Miguel Angel Hannon, PA [address] [place] [address] documented as of this encounter Visit Diagnoses [...] documented as of this encounter Care Teams Mixer Attendant Relationship Specialty Start Date End Date Marisol Dumont APRN [address] [place], [place] [id number] PCP - General 02/20/24 documented as of this encounter
--- OUTSIDE RECORDS SUMMARY | 2025-03-18 07:20 | XMS_ITS | Patient Health Record ---
Author Organization [facility] Address [address] [place] [address] Care Team Providers Care Power Originator Name Role Phone JuliaMasoud beasley Primary Care Provider MASOUD DUMONT Unavailable Unavaila Sterling Forrester Unavailable [phone] Migration, Provider Unavailable Unavailable Allergies Allergen (clinical drug ingredient) Drug/Non Drug Allergy documented on EMR Reaction Allergy Type Onset Date Status angiotensin-converting enzyme inhibitor (FN) JESUS MANUEL Inhibitors Unknown Drug Allergy Acti ve Results Component Value Reference Range Notes COMPREHENSIVE METABOLIC PANE L (10729) Reviewed date:04/23/2024 08:14:25 AM Interpretation: Performing Lab:LINDA RecordSetter-[employer] (SCNL)e1355 [employer], [employer] (SCNL)JjmmLK[address] Demian Jernigan Notes/Report: PROTHROMBIN TIME-INR (8847) Reviewed date:04/22/2024 10:29:07 PM Interpretation: Performing Lab:LINDA RecordSetter-[employer] (SCNL)e1355 BrandConttel [employer], [employer] (SCNL)TnloQE[address] Demian Jernigan Notes/Report: INR 1.0 Reference Range 0.9-1.1 Moderate-intensity Warfarin Therapy 2.0-3.0 Higher-intensity Warfarin Therapy 3.0-4.0 PT 10.9 9.0-11.5 sec For additional information, please refer to http://Marc[employer] Solutions.Metropolitan App/faq/ZZF432 (This link is being provided for informational/ educational purposes only.) COMPREHENSIVE METABOLIC PANE L (41267) Reviewed date:04/23/2024 11:11:12 AM Interpretation: Performing Lab:LINDA RecordSetter-[place] [address], [place] PrquNH[address] Demian Jernigan Notes/Report: CBC (INCLUDES DIFF/PLT) (639 9) Reviewed date:04/22/2024 10:29:22 PM Interpretation: Performing Lab:LINDA RecordSetter-[place] [address], [place] RmjrJP[address] Demian Jernigan Notes/Report: WHITE BLOOD CELL COUNT 4.5 3.8-10.8 Thousand/ uL RED BLOOD CELL COUNT 4.49 4.20-5.80 Million/uL HEMOGLOBIN 14.7 13.2-17.1 g/dL HEMATOCRIT 42.3 38.5-50.0 % MCV 94.2 80.0-100.0 fL MCH 32.7 27.0-33.0 pg MCHC 34.8 32.0-36.0 g/dL For adults, a slight decrease in the calculated MCHC value (in the range of 30 to 32 g/dL) is most likely not clinically significant; however, it should be interpreted with caution in correlation with other red cell parameters and the patient's clinical condition. RDW 10.6 11.0-15.0 % PLATELET COUNT 129 140-400 Thousand/uL MPV 10.6 7.5-12.5 fL ABSOLUTE NEUTROPHILS 2795 7142-2424 cells/uL ABSOLUTE LYMPHOCYTES 3532 031-1200 cells/uL ABSOLUTE MONOCYTES 387 200-950 cells/uL ABSOLUTE EOSINOPHILS 117 15-500 cells/uL ABSOLUTE BASOPHILS 18 0-200 cells/uL NEUTROPHILS 62.1 LYMPHOCYTES 26.3 MONOCYTES 8.6 EOSINOPHILS 2.6 BASOPHILS 0.4 COMPREHENSIVE METABOLIC PANE L (48903) Reviewed date:05/24/2024 01:54:38 PM Interpretation: Performing Lab:LINDA RecordSetter-[place] [address], Raffaele ToledoRlfmOX[address] Demian Jernigan Notes/Report: COMPREHENSIVE METABOLIC PANE L (99317) Reviewed date:07/08/2024 02:25:40 PM Interpretation: Performing Lab:LINDA RecordSetter-[place] [address], [place] FvmbVH[address] Demian Jernigan Notes/Report: GLUCOSE 123 65-99 mg/dL Fasting reference interval For someone without known diabetes, a glucose value between 100 and 125 mg/dL is consistent with prediabetes and should be confirmed with a follow-up test. UREA NITROGEN (BUN) 22 7-25 mg/dL CREATININE 0.85 0.60-1.29 mg/dL EGFR 109 > OR = 60 mL/min/1.73m2 BUN/CREATININE RATIO SEE NOTE: 6-22 (calc) Not Reported: BUN and Creatinine are within reference range. SODIUM 138 135-146 mmol/L POTASSIUM 4.4 3.5-5.3 mmol/L CHLORIDE 101 98-110 mmol/L CARBON DIOXIDE 27 20-32 mmol/L CALCIUM 9.6 8.6-10.3 mg/dL PROTEIN, TOTAL 6.9 6.1-8.1 g/dL ALBUMIN 4.7 3.6-5.1 g/dL GLOBULIN 2.2 1.9-3.7 g/dL (calc) ALBUMIN/GLOBULIN RATIO 2.1 1.0-2.5 (calc) BILIRUBIN, TOTAL 1.1 0.2-1.2 mg/dL ALKALINE PHOSPHATASE 63 36-130 U/L AST 20 10-40 U/L ALT 22 9-46 U/L MAGNESIUM (622) Reviewed date:05/23/2024 04:26:24 PM Interpretation: Performing Lab:LINDA CallistoTVe1355 [employer], [id number] Demian Jernigan Notes/Report: MAGNESIUM 1.8 1.5-2.5 mg/dL CBC (INCLUDES DIFF/PLT) (639 9) Reviewed date:05/23/2024 04:26:32 PM Interpretation: Performing Lab:LINDA CallistoTVe1355 [employer], ClickEquationsIrxeCO[address] Demian Jernigan Notes/Report: WHITE BLOOD CELL COUNT 7.8 3.8-10.8 Thousand/ uL RED BLOOD CELL COUNT 5.19 4.20-5.80 Million/uL HEMOGLOBIN 16.3 13.2-17.1 g/dL HEMATOCRIT 46.6 38.5-50.0 % MCV 89.8 80.0-100.0 fL MCH 31.4 27.0-33.0 pg MCHC 35.0 32.0-36.0 g/dL For adults, a slight decrease in the calculated MCHC value (in the range of 30 to 32 g/dL) is most likely not clinically significant; however, it should be interpreted with caution in correlation with other red cell parameters and the patient's clinical condition. RDW 11.2 11.0-15.0 % PLATELET COUNT 166 140-400 Thousand/uL MPV 10.8 7.5-12.5 fL ABSOLUTE NEUTROPHILS 5281 1097-0436 cells/uL ABSOLUTE LYMPHOCYTES 9690 180-9840 cells/uL ABSOLUTE MONOCYTES 671 200-950 cells/uL ABSOLUTE EOSINOPHILS 179 15-500 cells/uL ABSOLUTE BASOPHILS 31 0-200 cells/uL NEUTROPHILS 67.7 LYMPHOCYTES 21.0 MONOCYTES 8.6 EOSINOPHILS 2.3 BASOPHILS 0.4 CBC (INCLUDES DIFF/PLT) (639 9) Reviewed date:07/08/2024 02:25:40 PM Interpretation: Performing Lab:LINDA, RecordSetter-[place] [address], [facility] CenterNmtyHB[address] Demian Jernigan Notes/Report: WHITE BLOOD CELL COUNT 7.4 3.8-10.8 Thousand/ uL RED BLOOD CELL COUNT 4.53 4.20-5.80 Million/uL HEMOGLOBIN 14.0 13.2-17.1 g/dL HEMATOCRIT 39.8 38.5-50.0 % MCV 87.9 80.0-100.0 fL MCH 30.9 27.0-33.0 pg MCHC 35.2 32.0-36.0 g/dL For adults, a slight decrease in the calculated MCHC value (in the range of 30 to 32 g/dL) is most likely not clinically significant; however, it should be interpreted with caution in correlation with other red cell parameters and the patient's clinical condition. RDW 12.3 11.0-15.0 % PLATELET COUNT 150 140-400 Thousand/uL MPV 10.7 7.5-12.5 fL ABSOLUTE NEUTROPHILS 4832 4760-5856 cells/uL ABSOLUTE LYMPHOCYTES 5026 753-3846 cells/uL ABSOLUTE MONOCYTES 548 200-950 cells/uL ABSOLUTE EOSINOPHILS 118 15-500 cells/uL ABSOLUTE BASOPHILS 30 0-200 cells/uL NEUTROPHILS 65.3 LYMPHOCYTES 25.3 MONOCYTES 7.4 EOSINOPHILS 1.6 BASOPHILS 0.4 PROTHROMBIN TIME-INR (8847) Reviewed date:07/08/2024 02:25:40 PM Interpretation: Performing Lab:LINDA [facility] [address], [place] OvbcGV[address] Demian Jernigan Notes/Report: INR 1.0 Reference Range 0.9-1.1 Moderate-intensity Warfarin Therapy 2.0-3.0 Higher-intensity Warfarin Therapy 3.0-4.0 PT 10.9 9.0-11.5 sec For additional information, please refer to http://[employer].Metropolitan App/faq/CGZ830 (This link is being provided for informational/ educational purposes only.) PROTHROMBIN TIME-INR (8847) Reviewed date:05/23/2024 04:26:40 PM Interpretation: Performing Lab:Maric[facility] [address], [place] XhxqGP[address] Demian Jernigan Notes/Report: INR 1.0 Moderate-intensity Warfarin Therapy 2.0-3.0 Higher-intensity Warfarin Therapy 3.0-4.0 Reference Range 0.9-1.1 PT 11.2 9.0-11.5 sec For additional information, please refer to http://[employer].Metropolitan App/faq/BQR403 (This link is being provided for informational/ educational purposes only.) VITAMIN B12/FOLATE, SERUM PA JOBY (0735) Reviewed date:05/23/2024 04:26:37 PM Interpretation: Performing Lab:LINDA [facility] [address], [place] NdmfWK[address] Demian Jernigan Notes/Report: VITAMIN B12 280 960-6421 pg/mL FOLATE, SERUM 21.3 Reference Range Low: <3.4 Borderline: 3.4-5.4 Normal: >5.4 FOLATE, RBC (467) Reviewed date:05/23/2024 04:26:20 PM Interpretation: Performing Lab:Maric[facility] [address], [place] EkydOX[address] Demian Jernigan Notes/Report: FOLATE, RBC 438 >280 ng/mL RBC TSH (899) Reviewed date:05/23/2024 04:26:44 PM Interpretation: Performing Lab:LINDA RecordSetter-[place] [address], [place] YtyzDZ[address] Demian Jernigan Notes/Report: TSH 1.32 0.40-4.50 mIU/L VITAMIN D,25-OH,TOTAL,IA (17 306) Reviewed date:05/24/2024 01:54:27 PM Interpretation: Performing Lab:LINDA RecordSetter-[employer] (SCNL)e1355 [employer], ClickEquationsOwnhKZ[address] Demian Jernigan Notes/Report: COMPREHENSIVE METABOLIC PANE L (50093) Reviewed date:02/14/2025 11:16:06 AM Interpretation: Performing Lab:LINDA CallistoTVe[address] [employer], ClickEquationsTlmdSC[address] Demian Jernigan Notes/Report: NON-FASTING; NON-FASTING; NON-FASTING; NON-FASTING; [...] 17 10-40 U/L ALT 17 9-46 U/L COMPREHENSIVE METABOLIC PANE L (24521) Reviewed date:03/26/2024 09:48:20 AM Interpretation: Performing Lab:LINDA RecordSetter-[employer] (SCNL)[address], [facility] Care SystemGlpsUW[address] Demian Jernigan Notes/Report: GLUCOSE 99 65-99 mg/dL Fasting reference interval UREA NITROGEN (BUN) 20 7-25 mg/dL CREATININE 0.69 0.60-1.29 mg/dL EGFR 116 > OR = 60 mL/min/1.73m2 BUN/CREATININE RATIO SEE NOTE: 6-22 (calc) Not Reported: BUN and Creatinine are within reference range. SODIUM 140 135-146 mmol/L POTASSIUM 4.1 3.5-5.3 mmol/L CHLORIDE 102 98-110 mmol/L CARBON DIOXIDE 30 20-32 mmol/L CALCIUM 10.2 8.6-10.3 mg/dL PROTEIN, TOTAL 7.6 6.1-8.1 g/dL ALBUMIN 4.7 3.6-5.1 g/dL GLOBULIN 2.9 1.9-3.7 g/dL (calc) ALBUMIN/GLOBULIN RATIO 1.6 1.0-2.5 (calc) BILIRUBIN, TOTAL 1.6 0.2-1.2 mg/dL ALKALINE PHOSPHATASE 85 36-130 U/L AST 30 10-40 U/L ALT 27 9-46 U/L CBC (INCLUDES DIFF/PLT) (639 9) Reviewed date:03/26/2024 09:48:20 AM Interpretation: Performing Lab:CB, [facility] Dkqy[address] [facility] Demian Jernigan Notes/Report: WHITE BLOOD CELL COUNT 5.9 3.8-10.8 Thousand/ uL RED BLOOD CELL COUNT 4.24 4.20-5.80 Million/uL HEMOGLOBIN 14.3 13.2-17.1 g/dL HEMATOCRIT 42.1 38.5-50.0 % MCV 99.3 80.0-100.0 fL MCH 33.7 27.0-33.0 pg MCHC 34.0 32.0-36.0 g/dL RDW 11.0 11.0-15.0 % PLATELET COUNT 124 140-400 Thousand/uL MPV 10.3 7.5-12.5 fL ABSOLUTE NEUTROPHILS 3593 0193-0580 cells/uL ABSOLUTE LYMPHOCYTES 2668 562-2792 cells/uL ABSOLUTE MONOCYTES 566 200-950 cells/uL ABSOLUTE EOSINOPHILS 130 15-500 cells/uL ABSOLUTE BASOPHILS 41 0-200 cells/uL NEUTROPHILS 60.9 LYMPHOCYTES 26.6 MONOCYTES 9.6 EOSINOPHILS 2.2 BASOPHILS 0.7 PROTHROMBIN TIME-INR (8847) Reviewed date:03/26/2024 09:48:20 AM Interpretation: Performing Lab:LINDA RecordSetter-[employer] (SCNL)e1355 [employer], ClickEquationsOtvwVC[address] Demian Jernigan Notes/Report: INR 1.0 Reference Range 0.9-1.1 Moderate-intensity Warfarin Therapy 2.0-3.0 Higher-intensity Warfarin Therapy 3.0-4.0 PT 11.2 9.0-11.5 sec For additional information, please refer to http://[employer].Metropolitan App/faq/OQO282 (This link is being provided for informational/ educational purposes only.) PROTHROMBIN TIME-INR (8847) Reviewed date:02/14/2025 11:16:06 AM Interpretation: Performing Lab:LINDA RecordSetter-Eyeota355 [employer], The Learning LabWfkfEG[address] Demian Jernigan Notes/Report: NON-FASTING; NON-FASTING; NON-FASTING; NON-FASTING; NON-FAST FASTING:YES FASTING: YES INR 1.0 Reference Range 0.9-1.1 Moderate-intensity Warfarin Therapy 2.0-3.0 Higher-intensity Warfarin Therapy 3.0-4.0 PT 10.8 9.0-11.5 sec For additional information, please refer to http://[employer].Metropolitan App/faq/QVS105 (This link is being provided for informational/ educational purposes only.) HEMOGLOBIN A1c (496) Reviewed date:02/14/2025 11:16:06 AM Interpretation: Performing Lab:LINDA CallistoTVe1355 [employer], The Learning LabAxnyTC[address] Demina Jernigan Notes/Report: NON-FASTING; NON-FASTING; NON-FASTING; NON-FASTING; NON-FAST [...] diagnosis of diabetes in children. According to [place] Diabetes Association (ADA) guidelines, hemoglobin A1c <7.0% represents optimal control in non- diabetic patients. Different metrics may apply to specific patient populations. Standards of Medical Care in Diabetes(ADA). AMMONIA (P) (5509) Reviewed date:02/14/2025 11:16:06 AM Interpretation: Performing Lab:LINDA, RecordSetter-DesignGooroo Nkzd[address] [employer]Conttel [facility], [place] XcpqRW[address] Demian Jernigan Notes/Report: NON-FASTING AMMONIA (P) 54 < OR = 72 umol/L LIPID PANEL, STANDARD (5710) Reviewed date:02/14/2025 11:16:06 AM Interpretation: Performing Lab:LINDA, RecordSetter-DesignGooroo [address], [employer] (SC[employer])IycsWQ[address] Demian Jernigan Notes/Report: NON-FASTING; NON-FASTING; NON-FASTING; NON-FASTING; [...] factors. LDL-C is now calculated using the Gokul-Liu calculation, which is a validated novel method providing better accuracy than the Friedewald equation in the estimation of LDL-C. Gokul COTA et al. SHAWNA. 2013;310(19): 2681-3811 (http://education.Fusion Sheep.SocialGO/faq/ZSE508) CHOL/HDLC RATIO 4.1 <5.0 (calc) NON HDL CHOLESTEROL 134 <130 mg/dL (calc) For patients with diabetes plus 1 major ASCVD risk factor, treating to a non-HDL-C goal of <100 mg/dL (LDL-C of <70 mg/dL) is considered a therapeutic option. COMPREHENSIVE METABOLIC PANE Rory (22381) Reviewed date:04/01/2024 09:33:17 AM Interpretation: Performing Lab:LINDA RecordSetter-DesignGooroo W[address] [employer]Contte[employer], [place] [facility] Care SystemFfqcTG[address] Demian Jernigan Notes/Report: FASTING:YES FASTING: YES GLUCOSE 111 65-99 mg/dL Fasting reference interval For someone without known diabetes, a glucose value between 100 and 125 mg/dL is consistent with prediabetes and should be confirmed with a follow-up test. UREA NITROGEN (BUN) 24 7-25 mg/dL CREATININE 0.73 0.60-1.29 mg/dL EGFR 114 > OR = 60 mL/min/1.73m2 BUN/CREATININE RATIO SEE NOTE: 6-22 (calc) Not Reported: BUN and Creatinine are within reference range. SODIUM 142 135-146 mmol/L POTASSIUM 4.5 3.5-5.3 mmol/L CHLORIDE 104 98-110 mmol/L CARBON DIOXIDE 28 20-32 mmol/L CALCIUM 10.2 8.6-10.3 mg/dL PROTEIN, TOTAL 7.6 6.1-8.1 g/dL ALBUMIN 4.7 3.6-5.1 g/dL GLOBULIN 2.9 1.9-3.7 g/dL (calc) ALBUMIN/GLOBULIN RATIO 1.6 1.0-2.5 (calc) BILIRUBIN, TOTAL 1.2 0.2-1.2 mg/dL ALKALINE PHOSPHATASE 93 36-130 U/L AST 25 10-40 U/L ALT 23 9-46 U/L CBC (INCLUDES DIFF/PLT) (639 9) Reviewed date:02/14/2025 11:16:06 AM Interpretation: Performing Lab:LINDA RecordSetter-DesignGooroo [address]za[address]64 [employer] [facility], [place] [facility] Care SystemFogkMD[address] Demian Jernigan Notes/Report: NON-FASTING; NON-FASTING; NON-FASTING; NON-FASTING; [...] MPV 10.6 7.5-12.5 fL ABSOLUTE NEUTROPHILS 4467 1306-9600 cells/uL ABSOLUTE LYMPHOCYTES 4416 710-5506 cells/uL ABSOLUTE MONOCYTES 512 200-950 cells/uL ABSOLUTE EOSINOPHILS 128 15-500 cells/uL ABSOLUTE BASOPHILS 51 0-200 cells/uL NEUTROPHILS 69.8 LYMPHOCYTES 19.4 MONOCYTES 8.0 EOSINOPHILS 2.0 BASOPHILS 0.8 CBC (INCLUDES DIFF/PLT) (639 9) Reviewed date:04/01/2024 09:33:17 AM Interpretation: Performing Lab:LINDA, RecordSetter-[employer] (SCNL)e1355 [employer], The Learning LabRpblOU[address] Demian Jernigan Notes/Report: FASTING:YES FASTING: YES WHITE BLOOD CELL COUNT 5.6 3.8-10.8 Thousand/ uL RED BLOOD CELL COUNT 4.38 4.20-5.80 Million/uL HEMOGLOBIN 14.7 13.2-17.1 g/dL HEMATOCRIT 43.2 38.5-50.0 % MCV 98.6 80.0-100.0 fL MCH 33.6 27.0-33.0 pg MCHC 34.0 32.0-36.0 g/dL RDW 10.6 11.0-15.0 % PLATELET COUNT 134 140-400 Thousand/uL MPV 10.3 7.5-12.5 fL ABSOLUTE NEUTROPHILS 3360 1607-7132 cells/uL ABSOLUTE LYMPHOCYTES 4570 134-1204 cells/uL ABSOLUTE MONOCYTES 543 200-950 cells/uL ABSOLUTE EOSINOPHILS 151 15-500 cells/uL ABSOLUTE BASOPHILS 22 0-200 cells/uL NEUTROPHILS 60 LYMPHOCYTES 27.2 MONOCYTES 9.7 EOSINOPHILS 2.7 BASOPHILS 0.4 PROTHROMBIN TIME-INR (8847) Reviewed date:04/01/2024 09:33:17 AM Interpretation: Performing Lab:LINDA, RecordSetter-[employer] (SCNL)e1355 [employer], ClickEquationsVltsUG[address] Demian Jernigan Notes/Report: FASTING:YES FASTING: YES INR 1.0 Reference Range 0.9-1.1 Moderate-intensity Warfarin Therapy 2.0-3.0 Higher-intensity Warfarin Therapy 3.0-4.0 PT 11.2 9.0-11.5 sec For additional information, please refer to http://education.TuneWiki.SocialGO/faq/BNV194 (This link is being provided for informational/ educational purposes only.) LIPID PANEL, STANDARD (7600) Reviewed date:10/13/2024 10:22:51 AM Interpretation: Performing Lab:LINDA CallistoTVe1355 [employer] [facility], [employer] (SCNL)IivhTD[address] Demian Jernigan Notes/Report: NON-FASTING; NON-FASTING; NON-FASTING; NON-FASTING; NON-FAST FASTING:YES FASTING: YES CHOLESTEROL, TOTAL 170 <200 mg/dL HDL CHOLESTEROL 38 > OR = 40 mg/dL TRIGLYCERIDES 188 <150 mg/dL LDL-CHOLESTEROL 102 Reference range: <100 Desirable range <100 mg/dL for primary prevention; <70 mg/dL for patients with CHD or diabetic patients with > or = 2 CHD risk factors. LDL-C is now calculated using the Gokul-Liu calculation, which is a validated novel method providing better accuracy than the Friedewald equation in the estimation of LDL-C. Gokul SS et al. SHAWNA. 2013;310(19): 7283-7516 (http://[employer].SocialGO/faq/TPN389) CHOL/HDLC RATIO 4.5 <5.0 (calc) NON HDL CHOLESTEROL 132 <130 mg/dL (calc) For patients with diabetes plus 1 major ASCVD risk factor, treating to a non-HDL-C goal of <100 mg/dL (LDL-C of <70 mg/dL) is considered a therapeutic option. COMPREHENSIVE METABOLIC PANE L (98245) Reviewed date:10/13/2024 10:22:51 AM Interpretation: Performing Lab:LINDA [employer] [address], ClickEquationsGjmjSV[address] Demian Jernigan Notes/Report: NON-FASTING; NON-FASTING; NON-FASTING; NON-FASTING; NON-FAST FASTING:YES FASTING: YES GLUCOSE 103 65-99 mg/dL Fasting reference interval For someone without known diabetes, a glucose value between 100 and 125 mg/dL is consistent with prediabetes and should be confirmed with a follow-up test. UREA NITROGEN (BUN) 18 7-25 mg/dL CREATININE 0.91 0.60-1.29 mg/dL EGFR 105 > OR = 60 mL/min/1.73m2 BUN/CREATININE RATIO SEE NOTE: 6-22 (calc) Not Reported: BUN and Creatinine are within reference range. SODIUM 144 135-146 mmol/L POTASSIUM 4.4 3.5-5.3 mmol/L CHLORIDE 104 98-110 mmol/L CARBON DIOXIDE 31 20-32 mmol/L CALCIUM 9.6 8.6-10.3 mg/dL PROTEIN, TOTAL 7.5 6.1-8.1 g/dL ALBUMIN 5.0 3.6-5.1 g/dL GLOBULIN 2.5 1.9-3.7 g/dL (calc) ALBUMIN/GLOBULIN RATIO 2.0 1.0-2.5 (calc) BILIRUBIN, TOTAL 1.0 0.2-1.2 mg/dL ALKALINE PHOSPHATASE 70 36-130 U/L AST 21 10-40 U/L ALT 24 9-46 U/L URIC ACID (905) Reviewed date:10/13/2024 10:22:51 AM Interpretation: Performing Lab:LINDA RecordSetter-[place] [employer] (SCNL)e1355 [employer], ClickEquationsSexaTT[address] Demian Jernigan Notes/Report: NON-FASTING; NON-FASTING; NON-FASTING; NON-FASTING; NON-FAST FASTING:YES FASTING: YES URIC ACID 5.9 4.0-8.0 mg/dL Therapeutic ta rget for gout patients: <6.0 mg/dL CBC (INCLUDES DIFF/PLT) (639 9) Reviewed date:10/13/2024 10:22:51 AM Interpretation: Performing Lab:LINDA CallistoTVe[address] [employer], The Learning LabGfphDO[address] Demian Jernigan Notes/Report: NON-FASTING; NON-FASTING; NON-FASTING; NON-FASTING; NON-FAST FASTING:YES FASTING: YES WHITE BLOOD CELL COUNT 14.3 3.8-10.8 Thousand/ uL RED BLOOD CELL COUNT 5.17 4.20-5.80 Million/uL HEMOGLOBIN 16.2 13.2-17.1 g/dL HEMATOCRIT 45.9 38.5-50.0 % MCV 88.8 80.0-100.0 fL MCH 31.3 27.0-33.0 pg MCHC 35.3 32.0-36.0 g/dL For adults, a slight decrease in the calculated MCHC value (in the range of 30 to 32 g/dL) is most likely not clinically significant; however, it should be interpreted with caution in correlation with other red cell parameters and the patient's clinical condition. RDW 11.9 11.0-15.0 % PLATELET COUNT 181 140-400 Thousand/uL MPV 11.5 7.5-12.5 fL ABSOLUTE NEUTROPHILS 40903 3279-4721 cells/uL ABSOLUTE LYMPHOCYTES 0172 440-2323 cells/uL ABSOLUTE MONOCYTES 1158 200-950 cells/uL ABSOLUTE EOSINOPHILS 157 15-500 cells/uL ABSOLUTE BASOPHILS 43 0-200 cells/uL NEUTROPHILS 83.2 LYMPHOCYTES 7.3 MONOCYTES 8.1 EOSINOPHILS 1.1 BASOPHILS 0.3 PROTHROMBIN TIME-INR (8847) Reviewed date:10/13/2024 10:22:51 AM Interpretation: Performing Lab:LINDA RecordSetter-[employer] (SCNL)e1355 [employer], [id number] Demian Jernigan Notes/Report: NON-FASTING; NON-FASTING; NON-FASTING; NON-FASTING; NON-FAST FASTING:YES FASTING: YES INR 1.0 Reference Range 0.9-1.1 Moderate-intensity Warfarin Therapy 2.0-3.0 Higher-intensity Warfarin Therapy 3.0-4.0 PT 10.7 9.0-11.5 sec For additional information, please refer to http://education.TuneWiki.SocialGO/faq/XBX006 (This link is being provided for informational/ educational purposes only.) PSA, TOTAL (5363) Reviewed date:10/13/2024 10:22:51 AM Interpretation: Performing Lab:LINDA RecordSetter-[employer] (SCNL)e1355 [employer], The Learning LabMcblWA[address] Demian Jernigan Notes/Report: NON-FASTING; NON-FASTING; NON-FASTING; NON-FASTING; NON-FAST FASTING:YES FASTING: YES PSA, TOTAL 0.94 < OR = 4.00 ng/mL The total PSA value from this assay system is standardized against the WHO standard. The test result will be approximately 20% lower when compared to the equimolar-standardized total PSA (Y[place]min [place]). Comparison of serial PSA results should be interpreted with this fact in mind. This test was performed using the Siemens chemiluminescent method. Values obtained from different assay methods cannot be used interchangeably. PSA levels, regardless of value, should not be interpreted as absolute evidence of the presence or absence of disease. VITAMIN D,25-OH,TOTAL,IA (17 306) Reviewed date:10/13/2024 10:22:51 AM Interpretation: Performing Lab:LINDA, [facility], [facility] CenterQhjkUU[address] Demian Jernigan Notes/Report: NON-FASTING; NON-FASTING; NON-FASTING; NON-FASTING; NON-FAST FASTING:YES FASTING: YES VITAMIN D,25-OH,TOTAL,IA 64 30-100 ng/mL Vitamin D Status 25-OH Vitamin D: Deficiency: <20 ng/mL Insufficiency: 20 - 29 ng/mL Optimal: > or = 30 ng/mL For 25-OH Vitamin D testing on patients on D2-supplementation and patients for whom quantitation of D2 and D3 fractions is required, the QuestAssureD(TM) 25-OH VIT D, (D2,D3), LC/MS/MS is recommended: order code 53983 (patients >2yrs). See Note 1 Note 1 For additional information, please refer to http://education.FansUnite.SocialGO/faq/WOW158 (This link is being provided for informational/ educational purposes only.) Reason For Referral No Information Medications Medication SIG (Take, Route, Frequency, Duration) Notes Start Date End Date Status Vitamin E 450 MG 1 CAP(S) ORALLY ONCE A DAY OTC Active Omeprazole 20 MG 1 cap(s) orally once a day OTC Active Vitamin D (Ergocalciferol) 1.25 MG (66508 UT) 1 cap(s) orally once a week; Duration: 84 days Active Pregabalin 75 MG 1 cap(s) orally 3 ti mes a day; Duration: 5 days 01/14/2025 Active Livalo 2 MG 1 tablet Orally Once a day; Duration: 90 days 10/12/2024 Active Coreg 12.5 MG 1 tab(s) orally 2 ti mes a day; Duration: 90 days Active Ciclopirox 8 % 1 application Ear Specialist ally Once a day; Duration: 90 days 02/10/2025 Active Folic Acid 1 MG 1 tab(s) orally once a day OTC Active Vitamin B Complex QD OTC Ac tive Vitamin C 500 MG 1 tab(s) orally once a day OTC Active Allopurinol 100 MG 100 mg orally once a day; Duration: 90 days Active Sertraline HCl 25 MG 1 tab(s) orally onc e a day; Duration: 90 days Active Niacin 500 MG 1 tab(s) orally 3 ti mes a day OTC Active Immunizations Vaccine Route Administration Date Status Comme nts Covmeño Brenna IM Intramuscular 10/07/2020 Administered Social History Tobacco Use: Social History Observation Description Date Details (start date - stop date) Never Smoker NA - NA Smoking: Question Answer Notes Are you a: nonsmoker Problems Problem Type SNOMED Code ICD Code Onset Dates Problem Status W/U Status Risk Notes Problem Alcohol abuse wi th intoxication, unspecified (F10.129) Active confirmed Problem Vitamin D deficiency (45950906) Vitamin D deficiency (E55.9) Active confirmed Problem Neuropathy (704207476) Neuropathy (G62.9) Active confirmed Problem Essential hypertension (92812984) Essential hypertension (I10) Active confirmed Problem Thrombocytopenia (816053188) Thrombocytopenia (D69.6) Active confirmed Problem Osteoarthritis of knee (700457156) Primary osteoarthritis of both knees (M17.0) Active confirmed Problem Urinary hesitancy (7687127) Urinary hesitancy (R39.11) Active confirmed Problem Mood disorder (77808402) Mood disorder (F39) Active confirmed Problem Alcohol abuse (64475685) Alcohol abuse (F10.10) Active confirmed Problem Vasculopathic erectile dysfunction (disorder) (4623173195545) Vasculogenic erectile dysfunction, unspecified vasculogenic erectile dysfunction type (N52.9) Active confirmed Problem Hypercholesterolemia (90106835) Hypercholesterolemia (E78.00) Active confirmed Problem 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) Dupuytren contracture (M72.0) Active confirmed Problem History of musculoskeletal disease (791468754) Personal history of gout (Z87.39) Active confirmed Problem Alcoholic cirrhosis (174786512) Alcoholic cirrhosis, unspecified whether ascites present (K70.30) Active confirmed Vital Signs Heart Rate 78 /min 02/10/2025 Temperature 97.6 degrees Fahrenheit 02/10/2025 Blood pressure diastolic 72 mm Hg 02/10/2025 Height 6 ft 0 in in 02/10/2025 Blood pressure systolic 120 mm Hg 02/10/2025 Weight 225.6 lbs 02/10/2025 BMI 30.59 kg/m2 02/10/2025 Encounters Encounter Location Date Provider Diagnosis [facility] [address] [place] [address] 03/23/2024 Masoud Julia [facility] [address] [place] [address] 03/30/2024 Masoud Julia [facility] [address] [place] [address] 04/21/2024 Masoud Julia [facility] [address] [place] [address] 05/19/2024 Masoud Julia [facility] [address] [place] [address] 07/05/2024 Masoud Julia [facility] [address] [place] [address] 10/09/2024 Provider Migration Neuropathy G62.9 ; Hypercholesterolemia E78.00 and Essential hypertension I10 [facility] [address] [place] [address] 10/11/2024 Masoud Julia [facility] [address] [place] [address] 05/31/2024 Masoud Julia Neuropathy G62.9 [facility] [address] [place] [address] 10/08/2024 Masoud Julia Alcoholic cirrhosis, unspecified whether ascites present K70.30 ; Neuropathy G62.9 ; Hepatosplenomegaly R16.2 ; Hypercholesterolemia E78.00 ; Essential hypertension I10 ; Urinary hesitancy R39.11 and Vitamin D deficiency E55.9 [facility] [address] [facility] [address] [place] [address] 02/10/2025 Masoud Julia Neuropathy G62.9 ; Alcoholic cirrhosis, unspecified whether ascites present K70.30 ; Hepatosplenomegaly R16.2 ; Hypercholesterolemia E78.00 ; Essential hypertension I10 ; Vitamin D deficiency E55.9 ; IFG (impaired fasting glucose) R73.01 and Tinea unguium B35.1 [facility] [address] [place] [address] 04/07/2024 Masoud Julia [facility] [address] [place] [address] 05/18/2024 Masoud Julia [facility] [address] [place] [address] 05/24/2024 Masoud Julia [facility] [address] [place] [address] 06/09/2024 Masoud Julia [facility] [address] [place] [address] 06/14/2024 Masoud Julia [facility] [address] [place] [address] 08/06/2024 Masoud Julia Neuropathy G62.9 [facility] [address] [place] [address] 10/07/2024 Masoud Julia Neuropathy G62.9 [facility] [address] [place] [address] 10/12/2024 Masoud Julia Hypercholesterolemia E78.00 [facility] [address] [place] [address] 11/30/2024 Sterling Besson Neuropathy G62.9 [facility] [address] [place] [address] 01/11/2025 Masoud Julia Essential hypertensi on I10 and Neuropathy G62.9 [facility] [address] [place] [address] 01/14/2025 Masoud Julia Neuropathy G62.9 [facility] [address] [place] [address] 02/07/2025 Masoud Julia [facility] [address] [address] 02/24/2025 Masoud Dumont Assessments Encounter Date Diagnosis (ICD Code) Assessment Notes Treatment Notes Treatment Clinical Notes Section Notes 05/31/2024 Neuropathy (ICD-10 - G62.9) Commend trial of Lyrica as noted, stop gabapentin. Continue vitamin supplements and we will try a topical compound to use in the evenings. He is going to touch base with physical therapy to see if they have any options. If no improvement recommend formal nerve conduction testing to help guide management. 08/06/2024 Neuropathy (ICD-10 - G62.9) 10/07/2024 Neuropathy (ICD-10 - G62.9) 10/08/2024 Neuropathy (ICD-10 - G62.9) Tolerating Lyrica well, increase to 3 times a day on the days that he needs an additional dose. Continue topicals, vitamins and refraining from alcohol use 10/08/2024 Alcoholic cirrhosis, unspecified whether ascites present (ICD-10 - K70.30) He will return in the next week or so for fasting labs, has ongoing follow-up with hepatology. 10/09/2024 Neuropathy (ICD-10 - G62.9) 10/12/2024 Hypercholesterolemia (ICD-10 - E78.00) 11/30/2024 Neuropathy (ICD-10 - G62.9) 01/11/2025 Essential hypertensi on (ICD-10 - I10) 01/14/2025 Neuropathy (ICD-10 - G62.9) 02/10/2025 Neuropathy (ICD-10 - G62.9) Tolerating Lyrica well. Continue topicals, vitamins and refraining from alcohol use 02/10/2025 Alcoholic cirrhosis, unspecified whether ascites present (ICD-10 - K70.30) labs today, has ongoing follow-up with hepatology. 02/10/2025 Hepatosplenomegaly (ICD-10 - R16.2) 01/11/2025 Neuropathy (ICD-10 - G62.9) 10/08/2024 Hepatosplenomegaly (ICD-10 - R16.2) 10/09/2024 Hypercholesterolemia (ICD-10 - E78.00) 10/08/2024 Hypercholesterolemia (ICD-10 - E78.00) Complains of feeling cold all the time, questioning if it could be related to his cholesterol or blood pressure medication. Discussed it is not likely a medication side effect but that depending on the results of his fasting lipid profile we could certainly lower the dose of his Livalo. Blood pressure is well-controlle d, decrease carvedilol as noted but needs to continue beta-blockade because of varices. 02/10/2025 Hypercholesterolemia (ICD-10 - E78.00) continue Livalo 02/10/2025 Essential hypertensi on (ICD-10 - I10) well controlled 10/08/2024 Essential hypertensi on (ICD-10 - I10) 10/09/2024 Essential hypertensi on (ICD-10 - I10) 02/10/2025 Vitamin D deficiency (ICD-10 - E55.9) 02/10/2025 IFG (impaired fastin g glucose) (ICD-10 - R73.01) minor elevation previously, A1C as noted 10/08/2024 Urinary hesitancy (ICD-10 - R39.11) 10/08/2024 Vitamin D deficiency (ICD-10 - E55.9) 02/10/2025 Tinea unguium (ICD-1 0 - B35.1) We discussed several options but also that Lamisil is a poor choice for him because of his chronic liver disease. Recommend trial of topicals. Soak routinely to help soften the toenails and start to file them down to decrease thickness. Consider podiatry referral if he desires Plan Of Treatment Pending Test Test Name Order Date X ray : Knee, Right 05/01/2020 M-Complete Blood Count Auto Diff 021 M-Complete Blood Count Auto Diff 024 M-Comprehensive Metabolic Panel 11/28/19 21 M-Lipid Panel 11/27/2020 M-Lipase 11/27/2020 M-Vitamin B12 05/03/2021 Rapid Covid Antigen 07/09/2021 Physical Therapy Eval and Treat 05/31/20 24 LIPID PANEL, STANDARD (7600) 02/17/2023 URIC ACID (905) 02/17/2023 FOLATE, SERUM (466) 02/17/2023 VITAMIN B12 (927) 02/17/2023 TSH W/REFLEX TO FT4 (04724) 02/17/2023 Insurance Providers Payer Name Payer Address Payer Phone Subscriber Number Group Number Insured Name Patient Relationship to Insured Coverage Start Date Coverage End Date [facility] [address] [place] [address] [phone] [id number] Jimmy Montano Self - patient is the insured Medical (General) History Medical History History ICD Code HTN ED Neuropathy Mood disorder HLD - stopped statin due to s/e and live r/pancreatitis issues Alcohol abuse Gout Liver cirrhosis with hepatosplenomegaly Surgical History Surgery Date(Month/Year) lt hand surgery 06/2024 Hospitalization History Reason Date(Month/Year) Angel Reynoso 02/2024
--- NOTE | 2025-03-18 07:23 | US_ITS ---
FINAL REPORT CLINICAL HISTORY: ALCOHOLIC CIRROHSIS OF LIVER W/O ASCITES FINDINGS: RIGHT UPPER QUADRANT ULTRASOUND Multiple transverse and longitudinal scans were performed of the right upper quadrant of the abdomen. FINDINGS: No gallstones are seen. No evidence of pericholecystic fluid is identified. Visualized liver parenchyma appears normal. No obvious changes of cirrhosis are seen. No intrahepatic duct dilatation is identified. No evidence of common bile duct dilatation is identified. Pancreas is obscured. The right kidney shows no evidence of obstruction. IMPRESSION: Unremarkable right upper quadrant ultrasound Authenticated and ERN
== END 2025-03-18 23:59 | disposition home or self-care (01) ==
PROVIDERS: PCP Nurse Practitioner Family; Visit Provider Physician Assistant Medical
DX: K70.30 Alcoholic cirrhosis of liver without ascites (principal); F10.91 Alcohol use, unspecified, in remission
CPT/HCPCS: 76705

== ENCOUNTER 2025-04-07 14:43 | Outpatient (CLI) | payer BC, SELFPAY ==
--- OUTSIDE RECORDS SUMMARY | 2024-10-09 17:30 | XMS_ITS ---
Author Organization [place] [facility] Address [address] [place] [address] Care Team Providers Care Sap Technical Developer Name Role Phone Marisol Dumont Primary Care Provider MARISOL DUMONT Unavailable Unavaila ble Migration, Provider Unavailable Unavailable Allergies Allergen (clinical drug ingredient) Drug/Non Drug Allergy documented on EMR Reaction Allergy Type Onset Date Status angiotensin-converting enzyme inhibitor (FN) JESUS MANUEL Inhibitors Unknown Drug Allergy Acti ve [facility] Conversion Encounter Medications Medication SIG (Take, Route, Frequency, Duration) Notes Start Date End Date Status Vitamin E 450 MG 1 CAP(S) ORALLY ONCE A DAY OTC *Please review and pick correct [facility]ul[facility]. If intended option is not shown, discontinue and re-order from Quick Search* Active Omeprazole 20 MG 1 cap(s) orally once a day OTC Active Sertraline HCl 25 MG 1 tab(s) orally once a day; Duration: 90 days Active Folic Acid 1 MG 1 tab(s) orally once a day OTC Active Vitamin D (Ergocalciferol) 1.25 MG (71492 UT) 1 cap(s) orally once a week; Duration: 84 days 10/16/2023 Active Vitamin C 500 MG 1 tab(s) orally once a day OTC Active Livalo 4 MG 1 tab(s) orally once a day Active Vitamin B Complex QD OTC *Please re view and pick correct strength-formulatio n from [employer] options. If intended option is not shown, discontinue and re-order from Quick Search* Active Coreg 12.5 MG 1 tab(s) orally 2 times a day; Duration: 90 days Active Allopurinol 100 MG 100 mg orally once a day; Duration: 90 days Active Niacin 500 MG 1 tab(s) orally 3 times a day OTC Active Pregabalin 75 MG 1 cap(s) orally 3 times a day 10/07/2024 Active Encounters Encounter Location Date Provider Diagnosis [facility] [address] [place] [address] 10/09/2024 Provider Migration Neuropathy G62.9 ; Hypercholesterolemia E78.00 and Essential hypertension I10 Assessments Encounter Date Diagnosis (ICD Code) Assessment Notes Treatment Notes Treatment Clinical Notes Section Notes 10/09/2024 Neuropathy (ICD-10 - G62.9) 10/09/2024 Hypercholesterolemia (ICD-10 - E78.00) 10/09/2024 Essential hypertensi on (ICD-10 - I10) Plan Of Treatment Medication Medication Name Sig Start Date Stop Date Notes Livalo 4 MG 1 tab(s) orally once a day Coreg 12.5 MG 1 tab(s) orally 2 ti mes a day; Duration: 90 days Allopurinol 100 MG 100 mg orally once a day; Duration: 90 days Pregabalin 75 MG 1 cap(s) orally 3 times a day 10/07/2024 Progress Notes * Jimmy BHATIA BDOB:[birth year] (44 yo M)Acc No.[id number]:10/09/2024 Patient: Brent WORKMAN Jimmy Owen Provider: Jai armstrong Migration :1980 A ge:44 Y S ex:Male Date:10/09/2024 Address:[facility] [address] [facility], [id number] Pcp:Marisol Dumont Subjective: * Chief Complaints: * 1 . [facility] To [facility] Conversion Encounter. * Medical History: * Medications: T aking Omeprazole 20 MG Capsule Delayed Release 1 cap(s) orally once a day , Notes to Pharmacist: OTC, Taking Vitamin E 450 MG CAPSULE 1 CAP(S) ORALLY ONCE A DAY , Notes to Pharmacist: OTC *Please review and pick correct strength-formulation from [employer] options. If intended option is not shown, discontinue and re-order from Quick Search*, Taking Niacin 500 MG Tablet 1 tab(s) orally 3 times a day , Notes to Pharmacist: OTC, Taking Vitamin C 500 MG Tablet 1 tab(s) orally once a day , Notes to Pharmacist: OTC, Taking Vitamin B Complex QD , Notes to Pharmacist: OTC *Please review and pick correct strength-formulation from [employer] options. If intended option is not shown, discontinue and re-order from Quick Search*, Taking Folic Acid 1 MG Tablet 1 tab(s) orally once a day , Notes to Pharmacist: OTC, Taking Vitamin D (Ergocalciferol) 1.25 MG (95505 UT) Capsule 1 cap(s) orally once a week , Taking Sertraline HCl 25 MG Tablet 1 tab(s) orally once a day * Allergies: A CE Inhibitors. Objective: * Vitals: Assessment: * Assessment: 1. N europathy - G62.9 (Primary) 2 . H ypercholesterolemia - E78.00 ? 3 . E ssential hypertension - I10 Plan: * Treatment: 2. H ypercholesterolemia Continue Livalo Tablet, 4 MG, 1 tab(s), orally, once a day. 3. E ssential hypertension Start Coreg Tablet, 12.5 MG, 1 tab(s), orally, 2 times a day, 90 days, 180 Tablet, Refills 1. ? 4. O thers Refill Allopurinol Tablet, 100 MG, 100 mg, orally, once a day, 90 days, 90, Refills 1. * * Electronic signature of Prov ider Migration on 04/07/2025 at 02:48 PM EDT Sign off status: Pending * Provider: Jai armstrong Migration Date: 0 10/09/2024 Generated for Hailey soto/Terry/Mikiesmitting on: 1 02:48 PM EDT
--- OUTSIDE RECORDS SUMMARY | 2024-10-11 04:15 | XMS_ITS ---
Author Organization [facility] Address [address] [facility] [address] [facility] [address] [place] [address] Care Team Providers Care Pediatric Acute Care Unit Nurse Name Role Phone Marisol Dumont Primary Care Provider MARISOL DUMONT Unavailable Unavaila ble REASON FOR VISIT blood draw Encounters Encounter Location Date Provider Diagnosis [facility] [address] [facility] [address] [place] [address] 10/11/2024 Marisol Dumont Plan Of Treatment No Information Progress Notes * Jimmy BHATIA BDOB:[birth year] (44 yo M)Acc No.[id number]:10/11/2024 LABS Patient: Brent Jimmy WORKMAN Provider: JENNIFER Barton :1980 A ge:44 Y S ex:Male Date:10/11/2024 Address:[address] [place], [place] Subjective: * Chief Complaints: * 1 . Blood draw. * Medical History: Objective: * Vitals: Assessment: Plan: * Treatment: * * Electronic signature of Cindy Dumont APRN on 04/07/2025 at 02:48 PM EDT Sign off status: Pending * Provider: JENNIFER Barton Date: 0 10/11/2024 Generated for Printi ng/Faxing/eTransmitting on: 1 02:48 PM EDT
--- OUTSIDE RECORDS SUMMARY | 2025-02-10 04:15 | XMS_ITS ---
Author Organization [facility] Address [address] [place] [address] Care Team Providers Care Dobby Loom Chain Pegger Name Role Phone Masoud Dumont Primary Care Provider [phone] MASOUD DUMONT Unavailable Unavaila ble Allergies Allergen (clinical drug ingredient) Drug/Non Drug Allergy documented on EMR Reaction Allergy Type Onset Date Status angiotensin-converting enzyme inhibitor (FN) JESUS MANUEL Inhibitors Unknown Drug Allergy Acti ve Results Component Value Reference Range Notes LIPID PANEL, STANDARD (7600) Reviewed date:02/14/2025 11:16:06 AM Interpretation: Performing Lab:CB, [facility], [facility] [id number] Demian Jernigan Notes/Report: NON-FASTING; NON-FASTING; NON-FASTING; NON-FASTING; NON-FAST FASTING:YES FASTING: YES CHOLESTEROL, TOTAL 177 <200 mg/dL HDL CHOLESTEROL 43 > OR = 40 mg/dL TRIGLYCERIDES 221 <150 mg/dL If a non-fasting specimen was collected, consider repeat triglyceride testing on a fasting specimen if clinically indicated. Rabago et al. J. of Clin. Lipidol. 2015;9:129-169. LDL-CHOLESTEROL 101 Reference range: <100 Desirable range <100 mg/dL for primary prevention; <70 mg/dL for patients with CHD or diabetic patients with > or = 2 CHD risk factors. LDL-C is now calculated using the Ivan calculation, which is a validated novel method providing better accuracy than the Friedewald equation in the estimation of LDL-C. Gokul COTA et al. SHAWNA. 2013;310(19): 1826-2821 (http://education.[employer]/faq/KRD378) CHOL/HDLC RATIO 4.1 <5.0 (calc) NON HDL CHOLESTEROL 134 <130 mg/dL (calc) For patients with diabetes plus 1 major ASCVD risk factor, treating to a non-HDL-C goal of <100 mg/dL (LDL-C of <70 mg/dL) is considered a therapeutic option. COMPREHENSIVE METABOLIC PANJohn Valadez (82551) Reviewed date:02/14/2025 11:16:06 AM Interpretation: Performing Lab:LINDA, [facility] [id number] [employer] [facility], [facility] HospitalLmfyUV[address] Demian Jernigan Notes/Report: NON-FASTING; NON-FASTING; NON-FASTING; NON-FASTING; NON-FAST FASTING:YES FASTING: YES GLUCOSE 100 65-99 mg/dL Fasting reference interval For someone without known diabetes, a glucose value between 100 and 125 mg/dL is consistent with prediabetes and should be confirmed with a follow-up test. UREA NITROGEN (BUN) 13 7-25 mg/dL CREATININE 0.83 0.60-1.29 mg/dL EGFR 109 > OR = 60 mL/min/1.73m2 BUN/CREATININE RATIO SEE NOTE: 6-22 (calc) Not Reported: BUN and Creatinine are within reference range. SODIUM 143 135-146 mmol/L POTASSIUM 3.8 3.5-5.3 mmol/L CHLORIDE 106 98-110 mmol/L CARBON DIOXIDE 28 20-32 mmol/L CALCIUM 9.2 8.6-10.3 mg/dL PROTEIN, TOTAL 6.7 6.1-8.1 g/dL ALBUMIN 4.5 3.6-5.1 g/dL GLOBULIN 2.2 1.9-3.7 g/dL (calc) ALBUMIN/GLOBULIN RATIO 2.0 1.0-2.5 (calc) BILIRUBIN, TOTAL 0.6 0.2-1.2 mg/dL ALKALINE PHOSPHATASE 57 36-130 U/L AST 17 10-40 U/L ALT 17 9-46 U/L CBC (INCLUDES DIFF/PLT) (639 9) Reviewed date:02/14/2025 11:16:06 AM Interpretation: Performing Lab:LINDA, [facility] [id number] [facility], [facility] HospitalMehkUF[address] Demian Jernigan Notes/Report: NON-FASTING; NON-FASTING; NON-FASTING; NON-FASTING; NON-FAST FASTING:YES FASTING: YES WHITE BLOOD CELL COUNT 6.4 3.8-10.8 Thousand/ uL RED BLOOD CELL COUNT 4.62 4.20-5.80 Million/uL HEMOGLOBIN 14.4 13.2-17.1 g/dL HEMATOCRIT 44.0 38.5-50.0 % MCV 95.2 80.0-100.0 fL MCH 31.2 27.0-33.0 pg MCHC 32.7 32.0-36.0 g/dL For adults, a slight decrease in the calculated MCHC value (in the range of 30 to 32 g/dL) is most likely not clinically significant; however, it should be interpreted with caution in correlation with other red cell parameters and the patient's clinical condition. RDW 12.2 11.0-15.0 % PLATELET COUNT 145 140-400 Thousand/uL MPV 10.6 7.5-12.5 fL ABSOLUTE NEUTROPHILS 4467 3541-6941 cells/uL ABSOLUTE LYMPHOCYTES 4027 950-9266 cells/uL ABSOLUTE MONOCYTES 512 200-950 cells/uL ABSOLUTE EOSINOPHILS 128 15-500 cells/uL ABSOLUTE BASOPHILS 51 0-200 cells/uL NEUTROPHILS 69.8 LYMPHOCYTES 19.4 MONOCYTES 8.0 EOSINOPHILS 2.0 BASOPHILS 0.8 PROTHROMBIN TIME-INR (8847) Reviewed date:02/14/2025 11:16:06 AM Interpretation: Performing Lab:CB, [facility] [id number] [facility], [facility] HospitalGrkmWQ[address] Demian Jernigan Notes/Report: NON-FASTING; NON-FASTING; NON-FASTING; NON-FASTING; NON-FAST FASTING:YES FASTING: YES INR 1.0 Reference Range 0.9-1.1 Moderate-intensity Warfarin Therapy 2.0-3.0 Higher-intensity Warfarin Therapy 3.0-4.0 PT 10.8 9.0-11.5 sec For additional information, please refer to http://education.[employer]/faq/ESZ901 (This link is being provided for informational/ educational purposes only.) HEMOGLOBIN A1c (496) Reviewed date:02/14/2025 11:16:06 AM Interpretation: Performing Lab:LINDA [facility] [id number] [facility], [facility] HospitalRywjLS[address] Demian Jernigan Notes/Report: NON-FASTING; NON-FASTING; NON-FASTING; NON-FASTING; NON-FAST FASTING:YES FASTING: YES HEMOGLOBIN A1c 4.9 <5.7 % For the purpose of screening for the presence of diabetes: <5.7% Consistent with the absence of diabetes 5.7-6.4% Consistent with increased risk for diabetes (prediabetes) > or =6.5% Consistent with diabetes This assay result is consistent with a decreased risk of diabetes. Currently, no consensus exists regarding use of hemoglobin A1c for diagnosis of diabetes in children. According to [place] Diabetes Association (ADA) guidelines, hemoglobin A1c <7.0% represents optimal control in non- diabetic patients. Different metrics may apply to specific patient populations. Standards of Medical Care in Diabetes(ADA). AMMONIA (P) (5509) Reviewed date:02/14/2025 11:16:06 AM Interpretation: Performing Lab:LINDA [facility] [id number] [facility], [facility] HospitalHsvtKQ[address] Demian Jernigan Notes/Report: NON-FASTING AMMONIA (P) 54 < OR = 72 umol/L REASON FOR VISIT F/U, labs-fasting, fungus and ingrown toenail-lt great toe Medications Medication SIG (Take, Route, Frequency, Duration) Notes Start Date End Date Status Coreg 12.5 MG 1 tab(s) orally 2 ti mes a day; Duration: 90 days Active Allopurinol 100 MG 100 mg orally once a day; Duration: 90 days Active Sertraline HCl 25 MG 1 tab(s) orally onc e a day; Duration: 90 days Active Folic Acid 1 MG 1 tab(s) orally once a day OTC Active Vitamin B Complex QD OTC Ac tive Vitamin E 450 MG 1 CAP(S) ORALLY ONCE A DAY OTC Active Omeprazole 20 MG 1 cap(s) orally once a day OTC Active Ciclopirox 8 % 1 application First Aid Officer ally Once a day; Duration: 90 days 02/10/2025 Active Vitamin C 500 MG 1 tab(s) orally once a day OTC Active Niacin 500 MG 1 tab(s) orally 3 ti mes a day OTC Active Vitamin D (Ergocalciferol) 1.25 MG (04069 UT) 1 cap(s) orally once a week; Duration: 84 days Active Pregabalin 75 MG 1 cap(s) orally 3 ti mes a day; Duration: 5 days 01/14/2025 Active Livalo 2 MG 1 tablet Orally Once a day; Duration: 90 days 10/12/2024 Active Social History Tobacco Use: Social History Observation Description Date Details (start date - stop date) Never Smoker NA - NA Smoking: Question Answer Notes Are you a: nonsmoker Vital Signs Temperature 97.6 degrees Fahrenheit 02/11/20 25 Blood pressure systolic 120 mm Hg 02/11/20 25 Blood pressure diastolic 72 mm Hg 025 Heart Rate 78 /min 02/10/2025 Height 6 ft 0 in in 02/10/2025 Weight 225.6 lbs 02/10/2025 BMI 30.59 kg/m2 02/10/2025 Encounters Encounter Location Date Provider Diagnosis [facility] [address] [place] [address] 02/10/2025 Masoud Dumont Neuropathy G62.9 ; Alcoholic cirrhosis, unspecified whether ascites present K70.30 ; Hepatosplenomegaly R16.2 ; Hypercholesterolemia E78.00 ; Essential hypertension I10 ; Vitamin D deficiency E55.9 ; IFG (impaired fasting glucose) R73.01 and Tinea unguium B35.1 Assessments Encounter Date Diagnosis (ICD Code) Assessment Notes Treatment Notes Treatment Clinical Notes Section Notes 02/10/2025 Neuropathy (ICD-10 - G62.9) Tolerating Lyrica well. Continue topicals, vitamins and refraining from alcohol use 02/10/2025 Alcoholic cirrhosis, unspecified whether ascites present (ICD-10 - K70.30) labs today, has ongoing follow-up with hepatology. 02/10/2025 Hepatosplenomegaly (ICD-10 - R16.2) 02/10/2025 Hypercholesterolemia (ICD-10 - E78.00) continue Livalo 02/10/2025 Essential hypertensi on (ICD-10 - I10) well controlled 02/10/2025 Vitamin D deficiency (ICD-10 - E55.9) 02/10/2025 IFG (impaired fastin g glucose) (ICD-10 - R73.01) minor elevation previously, A1C as noted 02/10/2025 Tinea unguium (ICD-1 0 - B35.1) We discussed several options but also that Lamisil is a poor choice for him because of his chronic liver disease. Recommend trial of topicals. Soak routinely to help soften the toenails and start to file them down to decrease thickness. Consider podiatry referral if he desires Plan Of Treatment Medication Medication Name Sig Start Date Stop Date Notes Ciclopirox 8 % 1 application First Aid Officer ally Once a day; Duration: 90 days 02/10/2025 Next Appt Details Follow Up: 4 Months, Reason: Progress Notes * Jimmy BHATIA BDOB:[birth year] (44 yo M)Acc No.[id number]:02/10/2025 Progress Notes Patient: Jimmy FIELD Provider: JENNIFER Barton :1980 A ge:44 Y S ex:Male Date:02/10/2025 Address:[facility] [address] [facility], [id number] Subjective: * Chief Complaints: * 1 . F/U, labs-fasting. 2. Fungus and ingrown toenail-lt great toe. * HPI: g en: 44-year-old male with long history of neuropathic pain in his feet presents today for routine chronic disease FU. Continues to have difficulty with neuropathic pain in his feet but does think that Lyrica has been more helpful than gabapentin and has also been using topical compound which gives him some brief relief. Symptoms vary from one day to the next. He is sleeping well at night with Lyrica. Taking TID has been more helpful so long as he remembers to take it routinely Pain is primarily on the plantar surface of both feet, feels like they are on fire, stinging migratory pain. Pressure sensation at times. No edema. With respect to liver cirrhosis he is doing well. Labs have been stable and he has continued to refrain from all alcohol use for several months now. Has FU and imaging again at in about 2 weeks and has also touched base with transplant team at in case that is needed in the future His only acute concern is fungus on multiple toenails. Has been present for some time, no treatment taken. Toenails are thick and uncomfortable at times. * ROS: C ONSTITUTIONAL: Reviewed, No Symptoms Reported: Y linda. G ASTROENTEROLOGY: Reviewed, No Symptoms Reported: Y es. U ROLOGY: Difficulty urinating o ccasional hesitancy of stream. ? * Medical History: H [place], ED, Neuropathy, Mood disorder, HLD - stopped statin due to s/e and liver/pancreatitis issues, Alcohol abuse, Gout, Liver cirrhosis with hepatosplenomegaly. * Surgical History: l t hand surgery 06/2024. * Hospitalization/Major Diagno stic Procedure: G ood Edgardo 02/2024. * Family History: F ather: alive. M other: alive. P aternal Grand Father: . P aternal Grand Mother: . M aternal Grand Father: . M aternal Grand Mother: . P aternal uncle: . 1 brother(s) - healthy. . * Social History: S moking A re you a: n onsmoker. R ecreational drug use: no. Exercise: yes. Home smoke detector use: no. Caffeine: yes. Living Will: No. Alcohol: socially. Sexually active: yes. Travel outside [place]: no. * Medications: T aking Omeprazole 20 MG Capsule Delayed Release 1 cap(s) orally once a day , Notes to Pharmacist: OTC, Taking Vitamin E 450 MG CAPSULE 1 CAP(S) ORALLY ONCE A DAY , Notes to Pharmacist: OTC, Taking Niacin 500 MG Tablet 1 tab(s) orally 3 times a day , Notes to Pharmacist: OTC, Taking Vitamin C 500 MG Tablet 1 tab(s) orally once a day , Notes to Pharmacist: OTC, Taking Vitamin B Complex QD , Notes to Pharmacist: OTC, Taking Folic Acid 1 MG Tablet 1 tab(s) orally once a day , Notes to Pharmacist: OTC, Taking Sertraline HCl 25 MG Tablet 1 tab(s) orally once a day , Taking Allopurinol 100 MG Tablet 100 mg orally once a day , Taking Coreg 12.5 MG Tablet 1 tab(s) orally 2 times a day , Taking Livalo 2 MG Tablet 1 tablet Orally Once a day , Taking Pregabalin 75 MG Capsule 1 cap(s) orally 3 times a day , Taking Vitamin D (Ergocalciferol) 1.25 MG (15783 UT) Capsule 1 cap(s) orally once a week , Medication List reviewed and reconciled with the patient * Allergies: A CE Inhibitors. Objective: * Vitals: N urse: jl, Pain: 0, Temp: 97.6, RR: 18, HR: 78, BP: 120/72, Ht: 6 ft 0 in, Wt: 225.6, BMI:30.59. * Examination: G eneral Examination: General P leasant and Cooperative, NAD on RA,. Heart: R egular Rate and Rhythm, no murmur, rubs or gallops. Lungs: c lear to auscultation,. Abdomen: s oft, NT/ND, BS present. Extremities: H john has thickened, discolored, brittle toenails. Large callus on the plantar surface of his left second toe.. neck s upple,, no thyromegaly,, no lymphadenopathy,. Psych N ormal Mood/Affect. Assessment: * Assessment: 1. N europathy - G62.9 (Primary) 2 . A lcoholic cirrhosis, unspecified whether ascites present - K70.30 3 . H epatosplenomegaly - R16.2 4 .?Hypercholesterolemia - E78.00 5 . E ssential hypertension - I10 6 . V itamin D deficiency - E55.9 7 . I FG (impaired fasting glucose) - R73.01 8 . T inea unguium - B35.1 Plan: * Treatment: 2. A lcoholic cirrhosis, unspecified whether ascites present L AB: LIPID PANEL, STANDARD (7600) Value Reference Range T RIGLYCERIDES 221 H <150 - mg/dL * C HOLESTEROL, TOTAL 177 <200 - mg/dL * H DL CHOLESTEROL 43 > OR = 40 - mg/dL * L DL-CHOLESTEROL 101 H - mg/dL (calc) * C HOL/HDLC RATIO 4.1 <5.0 - (calc) * N ON HDL CHOLESTEROL 134 H <130 - mg/dL (calc) * Candida Treviño 02/14/2025 11:15:58 AM EDT > Patient informedThis lab was reviewed by Candida Treviño on 02/14/2025 at 11:16 AM EDT ?LAB: COMPREHENSIVE METABOLIC PANEL (17525)* Value Reference Range G LUCOSE 100 H 65-99 - mg/dL * U KEREN NITROGEN (BUN) 13 7-25 - mg/dL * C REATININE 0.83 0.60-1.29 - mg/dL * B UN/CREATININE RATIO SEE NOTE: 12-26 - (calc) * S ODIUM 143 135-146 - mmol/L * P OTASSIUM 3.8 3.5-5.3 - mmol/L * C HLORIDE 106 98-110 - mmol/L * C ARBON DIOXIDE 28 20-32 - mmol/L * C ALCIUM 9.2 8.6-10.3 - mg/dL * P ROTEIN, TOTAL 6.7 6.1-8.1 - g/dL * A LBUMIN 4.5 3.6-5.1 - g/dL * G LOBULIN 2.2 1.9-3.7 - g/dL (calc ) * A LBUMIN/GLOBULIN RATIO 2.0 1.0-2.5 - (calc) * B ILIRUBIN, TOTAL 0.6 0.2-1.2 - mg/dL * A LKALINE PHOSPHATASE 57 36-130 - U/L * A ST 17 10-40 - U/L * A LT 17 9-46 - U/L * E GFR 109 > OR = 60 - mL/min/1 .73m2 * Candida Treviño 02/14/2025 11:15:58 AM EDT > Patient informedThis lab was reviewed by Candida Treviño on 02/14/2025 at 11:16 AM EDT ?LAB: CBC (INCLUDES DIFF/PLT) (6470)* Value Reference Range W FILIPPO BLOOD CELL COUNT 6.4 3.8-10.8 - Thousan d/uL * R ED BLOOD CELL COUNT 4.62 4.20-5.80 - Million/ uL * H EMOGLOBIN 14.4 13.2-17.1 - g/dL * H EMATOCRIT 44.0 38.5-50.0 - % * M CV 95.2 80.0-100.0 - fL * M CH 31.2 27.0-33.0 - pg * M CHC 32.7 32.0-36.0 - g/dL * R DW 12.2 11.0-15.0 - % * P LATELET COUNT 145 140-400 - Thousand/u L * N EUTROPHILS 69.8 - % * A BSOLUTE NEUTROPHILS 4467 3969-4499 - cells/uL * L YMPHOCYTES 19.4 - % * A BSOLUTE LYMPHOCYTES 6167 676-1082 - cells/uL * M ONOCYTES 8.0 - % * A BSOLUTE MONOCYTES 512 200-950 - cells/uL * E OSINOPHILS 2.0 - % * A BSOLUTE EOSINOPHILS 128 15-500 - cells/uL * B ASOPHILS 0.8 - % * A BSOLUTE BASOPHILS 51 0-200 - cells/uL * M PV 10.6 7.5-12.5 - fL * Candida Treviño 02/14/2025 11:15:58 AM EDT > Patient informedThis lab was reviewed by Candida Treviño on 02/14/2025 at 11:16 AM EDT ?LAB: PROTHROMBIN TIME-INR (8847)* Value Reference Range P T 10.8 9.0-11.5 - sec * I NR 1.0 - * Candida Treviño 02/14/2025 11:15:58 AM EDT > Patient informedThis lab was reviewed by Candida Treviño on 02/14/2025 at 11:16 AM EDT ?LAB: HEMOGLOBIN A1c (496)* Value Reference Range H EMOGLOBIN A1c 4.9 <5.7 - % * Candida Treviño 02/14/2025 11:15:58 AM EDT > Patient informedThis lab was reviewed by Candida Treviño on 02/14/2025 at 11:16 AM EDT ?LAB: AMMONIA (P) (0449)* Value Reference Range A MMONIA (P) 54 < OR = 72 - umol/L * Candida Treviño 02/14/2025 11:15:58 AM EDT > Patient informedThis lab was reviewed by Candida Treviño on 02/14/2025 at 11:16 AM EDT Clinical Notes: labs today, has ongoing follow-up with hepatology.?? 3.?Hypercholesterolemia?LAB: COMPREHENSIVE METABOLIC PANEL (97108)* Value Reference Range G LUCOSE 100 H 65-99 - mg/dL * U KEREN NITROGEN (BUN) 13 7-25 - mg/dL * C REATININE 0.83 0.60-1.29 - mg/dL * B UN/CREATININE RATIO SEE NOTE: 12-26 - (calc) * S ODIUM 143 135-146 - mmol/L * P OTASSIUM 3.8 3.5-5.3 - mmol/L * C HLORIDE 106 98-110 - mmol/L * C ARBON DIOXIDE 28 20-32 - mmol/L * C ALCIUM 9.2 8.6-10.3 - mg/dL * P ROTEIN, TOTAL 6.7 6.1-8.1 - g/dL * A LBUMIN 4.5 3.6-5.1 - g/dL * G LOBULIN 2.2 1.9-3.7 - g/dL (calc ) * A LBUMIN/GLOBULIN RATIO 2.0 1.0-2.5 - (calc) * B ILIRUBIN, TOTAL 0.6 0.2-1.2 - mg/dL * A LKALINE PHOSPHATASE 57 36-130 - U/L * A ST 17 10-40 - U/L * A LT 17 9-46 - U/L * E GFR 109 > OR = 60 - mL/min/1 .73m2 * Candida Treviño 02/14/2025 11:15:58 AM EDT > Patient informedThis lab was reviewed by Candida Treviño on 02/14/2025 at 11:16 AM EDT ?LAB: CBC (INCLUDES DIFF/PLT) (0099)* Value Reference Range W FILIPPO BLOOD CELL COUNT 6.4 3.8-10.8 - Thousan d/uL * R ED BLOOD CELL COUNT 4.62 4.20-5.80 - Million/ uL * H EMOGLOBIN 14.4 13.2-17.1 - g/dL * H EMATOCRIT 44.0 38.5-50.0 - % * M CV 95.2 80.0-100.0 - fL * M CH 31.2 27.0-33.0 - pg * M CHC 32.7 32.0-36.0 - g/dL * R DW 12.2 11.0-15.0 - % * P LATELET COUNT 145 140-400 - Thousand/u L * N EUTROPHILS 69.8 - % * A BSOLUTE NEUTROPHILS 4467 1328-9517 - cells/uL * L YMPHOCYTES 19.4 - % * A BSOLUTE LYMPHOCYTES 1803 838-9155 - cells/uL * M ONOCYTES 8.0 - % * A BSOLUTE MONOCYTES 512 200-950 - cells/uL * E OSINOPHILS 2.0 - % * A BSOLUTE EOSINOPHILS 128 15-500 - cells/uL * B ASOPHILS 0.8 - % * A BSOLUTE BASOPHILS 51 0-200 - cells/uL * M PV 10.6 7.5-12.5 - fL * Candida Treviño 02/14/2025 11:15:58 AM EDT > Patient informedThis lab was reviewed by Candida Treviño on 02/14/2025 at 11:16 AM EDT Clinical Notes: continue Livalo??4.?Essential hypertension?LAB: LIPID PANEL, STANDARD (7600)* Value Reference Range T RIGLYCERIDES 221 H <150 - mg/dL * C HOLESTEROL, TOTAL 177 <200 - mg/dL * H DL CHOLESTEROL 43 > OR = 40 - mg/dL * L DL-CHOLESTEROL 101 H - mg/dL (calc) * C HOL/HDLC RATIO 4.1 <5.0 - (calc) * N ON HDL CHOLESTEROL 134 H <130 - mg/dL (calc) * Candida Treviño 02/14/2025 11:15:58 AM EDT > Patient informedThis lab was reviewed by Candida Treviño on 02/14/2025 at 11:16 AM EDT ?LAB: PROTHROMBIN TIME-INR (8847)* Value Reference Range P T 10.8 9.0-11.5 - sec * I NR 1.0 - * Candida Treviño 02/14/2025 11:15:58 AM EDT > Patient informedThis lab was reviewed by Candida Treviño on 02/14/2025 at 11:16 AM EDT ?LAB: HEMOGLOBIN A1c (496)* Value Reference Range H EMOGLOBIN A1c 4.9 <5.7 - % * Candida Treviño 02/14/2025 11:15:58 AM EDT > Patient informedThis lab was reviewed by Candida Treviño on 02/14/2025 at 11:16 AM EDT Clinical Notes: well controlled??5.?IFG (impaired fasting glucose)?LAB: LIPID PANEL, STANDARD (7600)* Value Reference Range T RIGLYCERIDES 221 H <150 - mg/dL * C HOLESTEROL, TOTAL 177 <200 - mg/dL * H DL CHOLESTEROL 43 > OR = 40 - mg/dL * L DL-CHOLESTEROL 101 H - mg/dL (calc) * C HOL/HDLC RATIO 4.1 <5.0 - (calc) * N ON HDL CHOLESTEROL 134 H <130 - mg/dL (calc) * Candida Treviño 02/14/2025 11:15:58 AM EDT > Patient informedThis lab was reviewed by Candida Treviño on 02/14/2025 at 11:16 AM EDT ?LAB: COMPREHENSIVE METABOLIC PANEL (46072)* Value Reference Range G LUCOSE 100 H 65-99 - mg/dL * U KEREN NITROGEN (BUN) 13 7-25 - mg/dL * C REATININE 0.83 0.60-1.29 - mg/dL * B UN/CREATININE RATIO SEE NOTE: 6-22 - (calc) * S ODIUM 143 135-146 - mmol/L * P OTASSIUM 3.8 3.5-5.3 - mmol/L * C HLORIDE 106 98-110 - mmol/L * C ARBON DIOXIDE 28 20-32 - mmol/L * C ALCIUM 9.2 8.6-10.3 - mg/dL * P ROTEIN, TOTAL 6.7 6.1-8.1 - g/dL * A LBUMIN 4.5 3.6-5.1 - g/dL * G LOBULIN 2.2 1.9-3.7 - g/dL (calc ) * A LBUMIN/GLOBULIN RATIO 2.0 1.0-2.5 - (calc) * B ILIRUBIN, TOTAL 0.6 0.2-1.2 - mg/dL * A LKALINE PHOSPHATASE 57 36-130 - U/L * A ST 17 10-40 - U/L * A LT 17 9-46 - U/L * E GFR 109 > OR = 60 - mL/min/1 .73m2 * Candida Treviño 02/14/2025 11:15:58 AM EDT > Patient informedThis lab was reviewed by Candida Treviño on 02/14/2025 at 11:16 AM EDT ?LAB: CBC (INCLUDES DIFF/PLT) (9237)* Value Reference Range W FILIPPO BLOOD CELL COUNT 6.4 3.8-10.8 - Thousan d/uL * R ED BLOOD CELL COUNT 4.62 4.20-5.80 - Million/ uL * H EMOGLOBIN 14.4 13.2-17.1 - g/dL * H EMATOCRIT 44.0 38.5-50.0 - % * M CV 95.2 80.0-100.0 - fL * M CH 31.2 27.0-33.0 - pg * M CHC 32.7 32.0-36.0 - g/dL * R DW 12.2 11.0-15.0 - % * P LATELET COUNT 145 140-400 - Thousand/u L * N EUTROPHILS 69.8 - % * A BSOLUTE NEUTROPHILS 4467 9937-2963 - cells/uL * L YMPHOCYTES 19.4 - % * A BSOLUTE LYMPHOCYTES 2383 439-8805 - cells/uL * M ONOCYTES 8.0 - % * A BSOLUTE MONOCYTES 512 200-950 - cells/uL * E OSINOPHILS 2.0 - % * A BSOLUTE EOSINOPHILS 128 15-500 - cells/uL * B ASOPHILS 0.8 - % * A BSOLUTE BASOPHILS 51 0-200 - cells/uL * M PV 10.6 7.5-12.5 - fL * Candida Treviño 02/14/2025 11:15:58 AM EDT > Patient informedThis lab was reviewed by Candida Treviño on 02/14/2025 at 11:16 AM EDT ?LAB: PROTHROMBIN TIME-INR (5918)* Value Reference Range P T 10.8 9.0-11.5 - sec * I NR 1.0 - * Candida Treviño 02/14/2025 11:15:58 AM EDT > Patient informedThis lab was reviewed by Candida Treviño on 02/14/2025 at 11:16 AM EDT ?LAB: HEMOGLOBIN A1c (496)* Value Reference Range H EMOGLOBIN A1c 4.9 <5.7 - % * Candida Treviño 02/14/2025 11:15:58 AM EDT > Patient informedThis lab was reviewed by Candida Treviño on 02/14/2025 at 11:16 AM EDT Clinical Notes: minor elevation previously, A1C as noted??6.?Tinea unguium? Start Ciclopirox Solution, 8 %, 1 application, Externally, Once a day, 90 days, 3, Refills 1.? Clinical Notes: We discussed several options but also that Lamisil is a poor choice for him becauseof his chronic liver disease. Recommend trial of topicals. Soak routinely to help soften the toenails and start to file them down to decrease thickness. Consider podiatry referral if he desires? * Follow Up: 4 Months * * Sign off status: Completed true * Provider: JENNIFER Barton Date: 0 02/10/2025 Generated for Hailey soto/Terry/Eulalia on: 1 02:48 PM EDT History and Physical Notes * Examination Category Sub-Category Detail Notes Category Not es General Examination Heart: Regular Rate and Rhythm, no murmur, rubs or gallops Lungs: clear to auscultatio n, Abdomen: soft, NT/ND, BS pres ent Extremities: He has thickened, di scolored, brittle toenails. Large callus on the plantar surface of his left second toe. neck supple,, no thyromeg eze,, no lymphadenopathy, General Pleasant and Coopera tive, NAD on RA, Psych Normal Mood/Affect
--- OUTSIDE RECORDS SUMMARY | 2025-03-04 08:30 | XMS_ITS | Encounter Summary ---
Author Organization [facility] Address [address] [place] [address] Care Team Providers Care Automotive Engineer Name Role Phone Marisol Dumont APRN Primary Care Provider +1- [phone] Reason for Referral * Consultation (Routine) - Authorized Specialty Diagnoses / Procedures Referred By Contac t Referred To Contact Diagnoses History of alcohol use Alcoholic cirrhosis of liver without ascites Miguel Angel Hannon PA [address] [address] Phone: tel: fax: Referral ID Status Reason Start Date Expiration Date V isits Requested Visits Authorized [id number] Authorized 03/04/2025 09/03/2026 1 1 * Imaging (Routine) - Authorized Specialty Diagnoses / Procedures Referred By Contac t Referred To Contact Diagnoses History of alcohol use Alcoholic cirrhosis of liver without ascites Procedures US Liver Screen Miguel Angel Hannon PA [address] [address] Phone: tel: fax: [facility] () [address] [place] [address] Phone: tel: fax: Referral ID Status Reason Start Date Expiration Date V isits Requested Visits Authorized [id number] Authorized 03/04/2025 09/03/2026 1 1 Reason for Visit * Reason Comments History of alcohol use Encounter Details Date Type Department Care Team (Late st Contact Info) Description 03/04/2025 8:30 AM EDT Office Visit [facility] Medicine Specialties [address] [place] [address] Miguel Angel Hannon PA [address] [place] [address] History of alcohol use (Primary [...] place to sleep or slept in a penitentiary (including now)? No 02/23/2024 PHQ-9 Answer Date [...] drink first t karon in the morning (EYE-SKIN GRADER) to steady your nerves or to get [...] hopeless Not at all 03/04/2025 8:35 AM TEMOT Hammad Ramirez Patient Health Questionnaire -2 Score 0 03/04/2025 8:35 AM TEMOT Hammad Ramirez * Question Answer Date of Assessment Author Trouble falling or staying a sleep, or sleeping too much Not at all 03/04/2025 8:35 AM TEMOT Hammad Ramirez Feeling tired or having andrzej le energy Not at all 03/04/2025 8:35 AM Hammad Ott Poor appetite or overeating Not at all 03/04/2025 8: 35 AM TEOMT Hammad Ramirez Feeling bad about yourself - or that [...] usual. Not at all 03/04/2025 8:35 AM Hammad Ott Thoughts that you would be b alex off or hurting yourself in some way Not at all 03/04/2025 8:35 AM Hammad Ott Patient Health Questionnaire -9 Score 0 03/04/2025 8:35 AM Hammad Ott * How difficult have these problems made it for you to do your work, take care of things at home, or get along with other people? Answer Date of Assessment Author Not difficult at all 03/04/2025 8:35 AM Hammad Jalloh documented as of this encounter Miscellaneous Notes [...] at this time. He is still working part time, and long hours. He is very active [...] capsule, Oral, Daily Allergies Allergies Allergen Reactions Rcihard Inhibitors Cough Vaccinations Immunization History Administered Date(s) Administered Hep B, Adolescent/High Risk Infant 02/11/1997, 07/13/1997 Brenna COVID-19 Vaccine (Blue Cap) [...] other criterion. Updated MELD from Outside labs 10/24/24: MELD 6 AFP Lab Results Component Value Date/Time AFP 9.2 02/20/2024 2149 HgB Lab Results Component Value Date/Time HGB [...] HAG Negative 02/20/2024 2148 FERRITIN 1,968 (H) 02/20/2024 2149 TIBC 133 (L) 02/20/2024 1728 CERULOPLSM 42 [...] to abstain from alcohol - CBC, CMP, VT/INR and AFP pending - US Liver screen [...] Description 09/13/2025 9:00 AM EDT Office Visit [facility] Medicine Specialties [address] [place] [address] Miguel Angel Hannon PA [address] [place] [address] Scheduled Orders Name Type Priority Associated Diagnoses [...] Primary Alcoholic cirrhosis of liver without ascites BMI 29.0-29.9,adult documented in this encounter Additional Health Concerns Assessment Noted Time PHQ-9 Depression Total Score: 0 03/04/20 25 8:35 AM EDT A fall risk assessment has been complete d for the patient 06/24/2024 10:26 AM EST A Body Mass Index follow-up plan has been documented for the patient 03/13/2025 10:46 PM EDT documented as of this encounter Care Teams Automotive Engineer Relationship Specialty Start Date End Date Marisol Dumont APRN [address] [place] [id number] PCP - General 02/20/24 documented as of this encounter
--- OUTSIDE RECORDS SUMMARY | 2025-04-06 12:15 | XMS_ITS ---
Author Organization [facility] Address [address] [place] [address] Care Team Providers Care Head Of Conservation Name Role Phone Marisol Dumont Primary Care Provider MARISOL DUMONT Unavailable Unavaila ble Allergies Allergen (clinical drug ingredient) Drug/Non Drug Allergy documented on EMR Reaction Allergy Type Onset Date Status angiotensin-converting enzyme inhibitor (FN) JESUS MANUEL Inhibitors Unknown Drug Allergy Acti ve REASON FOR VISIT Thinks RIGHT 2nd toe is infected Medications Medication SIG (Take, Route, Frequency, Duration) Notes Start Date End Date Status Ciclopirox 8 % 1 application Tumbler Plater ally Once a day; Duration: 90 days 02/10/2025 Active Allopurinol 100 MG 100 mg orally once a day; Duration: 90 days Active Sertraline HCl 25 MG 1 tab(s) orally onc e a day; Duration: 90 days Active Cephalexin 500 MG 1 capsule Orally 3 t imes a day; Duration: 10 days 04/06/2025 Active Vitamin D (Ergocalciferol) 1.25 MG (54859 UT) 1 cap(s) orally once a week; Duration: 84 days Active Livalo 2 MG 1 tablet Orally Once a day; Duration: 90 days 10/12/2024 Active Pregabalin 75 MG 1 cap(s) orally 3 ti mes a day; Duration: 5 days 01/14/2025 Active Vitamin B Complex QD OTC Ac tive Coreg 12.5 MG 1 tab(s) orally 2 ti mes a day; Duration: 90 days Active Folic Acid 1 MG 1 tab(s) orally once a day OTC Active Omeprazole 20 MG 1 cap(s) orally once a day OTC Active Niacin 500 MG 1 tab(s) orally 3 ti mes a day OTC Active Vitamin E 450 MG 1 CAP(S) ORALLY ONCE A DAY OTC Active Vitamin C 500 MG 1 tab(s) orally once a day OTC Active Vital Signs Temperature 98 degrees Fahrenheit 04/06/2025 Blood pressure systolic 142 mm Hg 04/06/20 25 Blood pressure diastolic 90 mm Hg 025 Heart Rate 82 /min 04/06/2025 Height 6 ft 0 in in 04/06/2025 Weight 224 lbs 04/06/2025 BMI 30.38 kg/m2 04/06/2025 Encounters Encounter Location Date Provider Diagnosis [address] [address] 04/06/2025 Marisol Dumont Cellulitis of toe of right foot L03.031 ; History of gout Z87.39 ; Callus of toe L84 and Neuropathy G62.9 Assessments Encounter Date Diagnosis (ICD Code) Assessment Notes Treatment Notes Treatment Clinical Notes Section Notes 04/06/2025 Cellulitis of toe of right foot (ICD-10 - L03.031) Given his neuropathy, recommended antibiotic treatment, Betadine topically to the callus, offload pressure as much as possible and obtain x-ray and labs as noted. Suspect this is cellulitis secondary to his callus and neuropathy, not gout, but will obtain labs as noted to help guide management. Strict return precautions reviewed Consider podiatry referral pending response to management 04/06/2025 History of gout (ICD-10 - Z87.39) 04/06/2025 Callus of toe (ICD-10 - L84) 04/06/2025 Neuropathy (ICD-10 - G62.9) Plan Of Treatment Medication Medication Name Sig Start Date Stop Date Notes Cephalexin 500 MG 1 capsule Orally 3 t imes a day; Duration: 10 days 04/06/2025 Pending Test Test Name Order Date X ray : Foot, Right 04/06/2025 M-Complete Blood Count Auto Diff 025 M-Erythrocyte Sedimentation Rate 025 M-Comprehensive Metabolic Panel 04/06/20 25 M-Uric Acid 04/06/2025 V-L-Pdfdxwth Protein 04/06/2025 Next Appt Details Follow Up: prn, Reason: Progress Notes * Jimmy BHATIA BDOB:[birth year] (44 yo M)Acc No.[id number]:04/06/2025 Progress Notes Patient: Jimmy FIELD Provider: JENNIFER Barton :1980 A ge:44 Y S ex:Male Date:04/06/2025 Address:[facility] [address], [id number] Subjective: * Chief Complaints: * 1 . Thinks RIGHT 2nd toe is infected. * HPI: g en: 44-year-old male presents today with complaints of pain, swelling, redness of the right second toe. He noticed a callus formed in this area a couple of weeks ago but just recently with discomfort, redness, swelling. He denies fevers or constitutional symptoms. He does have a history of gout and suspected this was developing initially. He did take 1 dose of colchicine last night. Has been on his feet a lot, in boots, for work. He does not have a history of diabetes but he does have chronic neuropathy symptoms in his lower extremities. Has been compliant with his routine medications including allopurinol every day to help prevent gout exacerbations. Typically his gout has been in the bilateral first MTP joints. * ROS: C ONSTITUTIONAL: Reviewed, No Symptoms Reported: Y es. * Medical History: H [place], ED, Neuropathy, Mood disorder, HLD - stopped statin due to s/e and liver/pancreatitis issues, Alcohol abuse, Gout, Liver cirrhosis with hepatosplenomegaly. * Medications: T aking Omeprazole 20 MG [...] day , Notes to Pharmacist: OTC, Taking Coreg 12.5 MG Tablet 1 tab(s) orally 2 times a day , Taking Livalo 2 MG Tablet 1 tablet Orally Once a day , Taking Pregabalin 75 MG Capsule 1 cap(s) orally 3 times a day , Taking Ciclopirox 8 % Solution 1 application Externally Once a day , Taking Sertraline HCl 25 MG Tablet 1 tab(s) orally once a day , Taking Allopurinol 100 MG Tablet 100 mg orally once a day , Taking Vitamin D (Ergocalciferol) 1.25 MG (73899 UT) Capsule 1 cap(s) orally once a week , Medication List reviewed and reconciled with the patient * Allergies: A CE Inhibitors. Objective: * Vitals: N urse: dw, Pain: 8, Temp: 98, RR: 18, HR: 82, BP: 142/90, Ht: 6 ft 0 in, Wt: 224, BMI:30.38. * Examination: G eneral Examination: General P leasant and Cooperative, NAD on RA,. Heart: R egular Rate and Rhythm, no murmur, rubs or gallops. Lungs: c lear to auscultation,. Extremities: r ight 2nd toe with abnormal angulation due to old trauma...localized erythema, swelling and mild fluctuance over the PIP joint, overlying callus, does not extended to the plantar surface. Psych N ormal Mood/Affect. Assessment: * Assessment: 1. C ellulitis of toe of right foot - L03.031 (Primary) 2 . H istory of gout - Z87.39 3 . C allus of toe - L84 4 . N europathy - G62.9? Plan: * Treatment: * Clinical Notes: Given his neuropathy, recommended antibiotic treatment, Betadine topically to the callus, offload pressure as much as possible and obtain x-ray and labs as noted. Suspect this is cellulitis secondary to his callus and neuropathy, not gout, but will obtain labs as noted to help guidemanagement. Strict return precautions reviewed Consider podiatry referral pending response to management??2.?History of gout?LAB: M-Complete Blood Count Auto Diff ?LAB: M-Erythrocyte Sedimentation Rate ?LAB: M-Comprehensive Metabolic Panel ?LAB: M-Uric Acid ?LAB: H-Q-Fuixyhwz Protein ?Imaging: X ray : Foot, Right* Marisol Dumont 04/06/2025 04:43:10 PM EDT > ATTN 2nd toe PIP joint * * Follow Up: p rn * * Sign off status: Completed true * Provider: JENNIFER Barton Date: Generated for Hailey soto/Terry/Eulalia on: 02:48 PM EDT History and Physical Notes * Examination Category Sub-Category Detail Notes Category Not es General Examination Heart: Regular Rate and Rhythm, no murmur, rubs or gallops Lungs: clear to auscultatio n, Extremities: right 2nd toe with a bnormal angulation due to old trauma...localized erythema, swelling and mild fluctuance over the PIP joint, overlying callus, does not extended to the plantar surface General Pleasant and Coopera tive, NAD on RA, Psych Normal Mood/Affect
--- OUTSIDE RECORDS SUMMARY | 2025-04-07 14:48 | XMS_ITS | Patient Health Record ---
Author Organization [facility] Address [address] [facility] [address] [place] [address] Care Team Providers Care Business Area Manager Name Role Phone JuliaMasoud beasley Primary Care Provider MASOUD DUMONT Unavailable Unavaila Sterling Forrester Unavailable [phone] Migration, Provider Unavailable Unavailable Allergies Allergen (clinical drug ingredient) Drug/Non Drug Allergy documented on EMR Reaction Allergy Type Onset Date Status angiotensin-converting enzyme inhibitor (FN) JESUS MANUEL Inhibitors Unknown Drug Allergy Acti ve Results Component Value Reference Range Notes PROTHROMBIN TIME-INR (5505) Reviewed date:04/22/2024 10:29:07 PM Interpretation: Performing Lab:[facility], SaggeGxflTQ[address] Demian Jernigan Notes/Report: INR 1.0 Reference Range 0.9-1.1 Moderate-intensity Warfarin Therapy 2.0-3.0 Higher-intensity Warfarin Therapy 3.0-4.0 PT 10.9 9.0-11.5 sec For additional information, please refer to http://education.Flare3d.Actiance/faq/VNP024 (This link is being provided for informational/ educational purposes only.) CBC (INCLUDES DIFF/PLT) (639 9) Reviewed date:04/22/2024 10:29:22 PM Interpretation: Performing Lab:[facility], KakaMobiMdjeOM[address] Demian Jernigan Notes/Report: WHITE BLOOD CELL COUNT [...] MPV 10.6 7.5-12.5 fL ABSOLUTE NEUTROPHILS 2795 7022-0960 cells/uL ABSOLUTE LYMPHOCYTES 3724 998-9486 cells/uL ABSOLUTE MONOCYTES 387 200-950 cells/uL ABSOLUTE EOSINOPHILS 117 15-500 cells/uL ABSOLUTE BASOPHILS 18 0-200 cells/uL NEUTROPHILS 62.1 LYMPHOCYTES 26.3 MONOCYTES 8.6 EOSINOPHILS 2.6 BASOPHILS 0.4 CBC (INCLUDES DIFF/PLT) (639 9) Reviewed date:05/23/2024 04:26:32 PM Interpretation: Performing Lab:LINDA, [facility] Rpwu[address] [facility] HospitalRaffaeleMqlhRS[address] Demian Jernigan Notes/Report: WHITE BLOOD CELL COUNT [...] MPV 10.8 7.5-12.5 fL ABSOLUTE NEUTROPHILS 5281 7977-2507 cells/uL ABSOLUTE LYMPHOCYTES 1576 796-1737 cells/uL ABSOLUTE MONOCYTES 671 200-950 cells/uL ABSOLUTE EOSINOPHILS 179 15-500 cells/uL ABSOLUTE BASOPHILS 31 0-200 cells/uL NEUTROPHILS 67.7 LYMPHOCYTES 21.0 MONOCYTES 8.6 EOSINOPHILS 2.3 BASOPHILS 0.4 MAGNESIUM (622) Reviewed date:05/23/2024 04:26:24 PM Interpretation: Performing Lab:LINDA [facility] [address] [facility], KakaMobiPlsmWA[address] Demian Jernigan Notes/Report: MAGNESIUM 1.8 1.5-2.5 mg/dL COMPREHENSIVE METABOLIC PANE L (58476) Reviewed date:07/08/2024 02:25:40 PM Interpretation: Performing Lab:LINDA [facility] [address], Union CollegeHcmfTB[address] Demian Jernigan Notes/Report: GLUCOSE 123 65-99 mg/dL [...] 20 10-40 U/L ALT 22 9-46 U/L COMPREHENSIVE METABOLIC PANE L (26881) Reviewed date:04/23/2024 11:11:12 AM Interpretation: Performing Lab:[facility] [address], [place] AtbwDM[address] Demian Jernigan Notes/Report: COMPREHENSIVE METABOLIC PANE L (92029) Reviewed date:05/24/2024 01:54:38 PM Interpretation: Performing Lab:LINDA, [facility] [address], [place] IsfoJF[address] Demian Jernigan Notes/Report: COMPREHENSIVE METABOLIC PANE L (09404) Reviewed date:04/23/2024 08:14:25 AM Interpretation: Performing Lab:LINDA, [facility] [address], [place] HpdlHM[address] Demian Jernigan Notes/Report: VITAMIN D,25-OH,TOTAL,IA (17 306) Reviewed date:10/13/2024 10:22:51 AM Interpretation: Performing Lab:[facility] [address], [place] VdcoCF[address] Demian Jernigan Notes/Report: NON-FASTING; NON-FASTING; NON-FASTING; NON-FASTING; [...] D, (D2,D3), LC/MS/MS is recommended: order code 27628 (patients >2yrs). See Note 1 Note 1 For additional information, please refer to http://education.NextImage Medical.com/faq/BCL339 (This link is being provided for informational/ educational purposes only.) PSA, TOTAL (5363) Reviewed date:10/13/2024 10:22:51 AM Interpretation: Performing Lab:[facility] [address], [place] MgimNC[address] Demian Jernigan Notes/Report: NON-FASTING; NON-FASTING; NON-FASTING; NON-FASTING; NON-FAST FASTING:YES FASTING: YES PSA, TOTAL 0.94 < OR = 4.00 ng/mL The total PSA value from this assay system is standardized against the WHO standard. The test result will be approximately 20% lower when compared to the equimolar-standardized total PSA (Yasmin [place]). Comparison of serial PSA results should be interpreted with this fact in mind. This test was performed using the Siemens chemiluminescent method. Values obtained from different assay methods cannot be used interchangeably. PSA levels, regardless of value, should not be interpreted as absolute evidence of the presence or absence of disease. AMMONIA (P) (5229) Reviewed date:02/14/2025 11:16:06 AM Interpretation: Performing Lab:LINDA, [facility] [address], Union CollegeNcpsKO[address] Demian Jernigan Notes/Report: NON-FASTING AMMONIA (P) 54 < OR = 72 umol/L HEMOGLOBIN A1c (496) Reviewed date:02/14/2025 11:16:06 AM Interpretation: Performing Lab:[facility], Union CollegeXtkwWD[address] Demian Jernigan Notes/Report: NON-FASTING; NON-FASTING; NON-FASTING; NON-FASTING; [...] diagnosis of diabetes in children. According to [place] Diabetes Association (ADA) guidelines, hemoglobin A1c <7.0% represents optimal control in non- diabetic patients. Different metrics may apply to specific patient populations. Standards of Medical Care in Diabetes(ADA). PROTHROMBIN TIME-INR (8847) Reviewed date:02/14/2025 11:16:06 AM Interpretation: Performing Lab:LINDA, [facility] [address], [place] QlslSP[address] Demian Jernigan Notes/Report: NON-FASTING; NON-FASTING; NON-FASTING; NON-FASTING; NON-FAST FASTING:YES FASTING: YES INR 1.0 Reference Range 0.9-1.1 Moderate-intensity Warfarin Therapy 2.0-3.0 Higher-intensity Warfarin Therapy 3.0-4.0 PT 10.8 9.0-11.5 sec For additional information, please refer to http://Avidia.Axiom/faq/XYU144 (This link is being provided for informational/ educational purposes only.) PROTHROMBIN TIME-INR (8847) Reviewed date:10/13/2024 10:22:51 AM Interpretation: Performing Lab:[facility]teVPEP, [facility] HospitalPzkbCE[address] eDmian Jernigan Notes/Report: NON-FASTING; NON-FASTING; NON-FASTING; NON-FASTING; NON-FAST FASTING:YES FASTING: YES INR 1.0 Reference Range 0.9-1.1 Moderate-intensity Warfarin Therapy 2.0-3.0 Higher-intensity Warfarin Therapy 3.0-4.0 PT 10.7 9.0-11.5 sec For additional information, please refer to http://Avidia.Axiom/faq/GGP302 (This link is being provided for informational/ educational purposes only.) CBC (INCLUDES DIFF/PLT) (639 9) Reviewed date:10/13/2024 10:22:51 AM Interpretation: Performing Lab:[facility] [facility], [facility] HospitalWhglXP[address] Demian Jernigan Notes/Report: NON-FASTING; NON-FASTING; NON-FASTING; NON-FASTING; [...] Thousand/uL MPV 11.5 7.5-12.5 fL ABSOLUTE NEUTROPHILS 31770 8552-2067 cells/uL ABSOLUTE LYMPHOCYTES 9578 057-0914 cells/uL ABSOLUTE MONOCYTES 1158 200-950 cells/uL ABSOLUTE EOSINOPHILS 157 15-500 cells/uL ABSOLUTE BASOPHILS 43 0-200 cells/uL NEUTROPHILS 83.2 LYMPHOCYTES 7.3 MONOCYTES 8.1 EOSINOPHILS 1.1 BASOPHILS 0.3 CBC (INCLUDES DIFF/PLT) (639 9) Reviewed date:02/14/2025 11:16:06 AM Interpretation: Performing Lab:LINDA, [facility] [address], KakaMobiWqpxLX[address] Demian Jernigan Notes/Report: NON-FASTING; NON-FASTING; NON-FASTING; NON-FASTING; [...] MPV 10.6 7.5-12.5 fL ABSOLUTE NEUTROPHILS 4467 9589-4548 cells/uL ABSOLUTE LYMPHOCYTES 9391 627-6955 cells/uL ABSOLUTE MONOCYTES 512 200-950 cells/uL ABSOLUTE EOSINOPHILS 128 15-500 cells/uL ABSOLUTE BASOPHILS 51 0-200 cells/uL NEUTROPHILS 69.8 LYMPHOCYTES 19.4 MONOCYTES 8.0 EOSINOPHILS 2.0 BASOPHILS 0.8 URIC ACID (905) Reviewed date:10/13/2024 10:22:51 AM Interpretation: Performing Lab:LIDNA, [facility] [address], [facility] HospitalGmmyPB[address] Demian Jernigan Notes/Report: NON-FASTING; NON-FASTING; NON-FASTING; NON-FASTING; NON-FAST FASTING:YES FASTING: YES URIC ACID 5.9 4.0-8.0 mg/dL Therapeutic ta rget for gout patients: <6.0 mg/dL COMPREHENSIVE METABOLIC PANE L (39143) Reviewed date:10/13/2024 10:22:51 AM Interpretation: Performing Lab:[facility]teVPEP, [facility] HospitalZhnkFV[address] Demian Jernigan Notes/Report: NON-FASTING; NON-FASTING; NON-FASTING; NON-FASTING; [...] 21 10-40 U/L ALT 24 9-46 U/L COMPREHENSIVE METABOLIC PANE L (97921) Reviewed date:02/14/2025 11:16:06 AM Interpretation: Performing Lab:[facility] [address] [facility], [facility] HospitalCthvBB[address] Demian Jernigan Notes/Report: NON-FASTING; NON-FASTING; NON-FASTING; NON-FASTING; [...] 17 10-40 U/L ALT 17 9-46 U/L LIPID PANEL, STANDARD (7600) Reviewed date:02/14/2025 11:16:06 AM Interpretation: Performing Lab:LINDA, [facility], [facility] HospitalGjhkUU[address] Demian Jernigan Notes/Report: NON-FASTING; NON-FASTING; NON-FASTING; NON-FASTING; NON-FAST FASTING:YES FASTING: YES CHOLESTEROL, TOTAL 177 <200 mg/dL HDL CHOLESTEROL 43 > OR = 40 mg/dL TRIGLYCERIDES 221 <150 mg/dL If a non-fasting specimen was collected, consider repeat triglyceride testing on a fasting specimen if clinically indicated. Gem et al. J. of Clin. Lipidol. 2015;9:129-169. [...] LDL-C. Gokul SS et al. SHAWNA. 2013;310(19): 0403-2735 (http://education.Lending Works.Actiance/faq/LNW700) CHOL/HDLC RATIO 4.1 <5.0 (calc) NON HDL CHOLESTEROL 134 <130 mg/dL (calc) For patients with diabetes plus 1 major ASCVD risk factor, treating to a non-HDL-C goal of <100 mg/dL (LDL-C of <70 mg/dL) is considered a therapeutic option. LIPID PANEL, STANDARD (7600) Reviewed date:10/13/2024 10:22:51 AM Interpretation: Performing Lab:LINDA, [facility], Union CollegeQozrKF[address] Demian Jernigan Notes/Report: NON-FASTING; NON-FASTING; NON-FASTING; NON-FASTING; [...] LDL-C. Gokul SS et al. SHAWNA. 2013;310(19): 7852-7230 (http://education.Lending Works.Actiance/faq/SPH368) CHOL/HDLC RATIO 4.5 <5.0 (calc) NON HDL CHOLESTEROL 132 <130 mg/dL (calc) For patients with diabetes plus 1 major ASCVD risk factor, treating to a non-HDL-C goal of <100 mg/dL (LDL-C of <70 mg/dL) is considered a therapeutic option. CBC (INCLUDES DIFF/PLT) (639 9) Reviewed date:07/08/2024 02:25:40 PM Interpretation: Performing Lab:LINDA, [facility] [address], Union CollegeGokjEM[address] Demian Jernigan Notes/Report: WHITE BLOOD CELL COUNT [...] MPV 10.7 7.5-12.5 fL ABSOLUTE NEUTROPHILS 4832 3831-1167 cells/uL ABSOLUTE LYMPHOCYTES 7038 837-2399 cells/uL ABSOLUTE MONOCYTES 548 200-950 cells/uL ABSOLUTE EOSINOPHILS 118 15-500 cells/uL ABSOLUTE BASOPHILS 30 0-200 cells/uL NEUTROPHILS 65.3 LYMPHOCYTES 25.3 MONOCYTES 7.4 EOSINOPHILS 1.6 BASOPHILS 0.4 PROTHROMBIN TIME-INR (8847) Reviewed date:07/08/2024 02:25:40 PM Interpretation: Performing Lab:[facility] Union CollegeGfetIC[address] Demian Jernigan Notes/Report: INR 1.0 Reference Range 0.9-1.1 Moderate-intensity Warfarin Therapy 2.0-3.0 Higher-intensity Warfarin Therapy 3.0-4.0 PT 10.9 9.0-11.5 sec For additional information, please refer to http://education.Flare3d.Actiance/faq/FVT311 (This link is being provided for informational/ educational purposes only.) PROTHROMBIN TIME-INR (8847) Reviewed date:05/23/2024 04:26:40 PM Interpretation: Performing Lab:LINDA [employer]qmar[address] el[address] Union CollegeQyxfEK[address] Demian Jernigan Notes/Report: INR 1.0 Moderate-intensity Warfarin Therapy 2.0-3.0 Higher-intensity Warfarin Therapy 3.0-4.0 Reference Range 0.9-1.1 PT 11.2 9.0-11.5 sec For additional information, please refer to http://education.Flare3d.Actiance/faq/FOR166 (This link is being provided for informational/ educational purposes only.) VITAMIN B12/FOLATE, SERUM PA JOBY (7065) Reviewed date:05/23/2024 04:26:37 PM Interpretation: Performing Lab:LINDA, [facility], Union CollegeYttkRD[address] Demian Jernigan Notes/Report: VITAMIN B12 675 542-2043 pg/mL FOLATE, SERUM 21.3 Reference Range Low: <3.4 Borderline: 3.4-5.4 Normal: >5.4 FOLATE, RBC (467) Reviewed date:05/23/2024 04:26:20 PM Interpretation: Performing Lab:[facility], Union CollegeTtvoES[address] Demian Jernigan Notes/Report: FOLATE, RBC 438 >280 ng/mL RBC TSH (899) Reviewed date:05/23/2024 04:26:44 PM Interpretation: Performing Lab:[facility], Union CollegeOmpeAK[address] Demian Jernigan Notes/Report: TSH 1.32 0.40-4.50 mIU/L VITAMIN D,25-OH,TOTAL,IA (17 306) Reviewed date:05/24/2024 01:54:27 PM Interpretation: Performing Lab:[facility], Union CollegeIcflJR[address] Demian Jernigan Notes/Report: Reason For Referral No Information Medications Medication SIG (Take, Route, Frequency, Duration) Notes Start Date End Date Status Omeprazole 20 MG 1 cap(s) orally once a day OTC Active Allopurinol 100 MG 100 mg orally once a day; Duration: 90 days Active Sertraline HCl 25 MG 1 tab(s) orally onc e a day; Duration: 90 days Active Cephalexin 500 MG 1 capsule Orally 3 t imes a day; Duration: 10 days 04/06/2025 Active Niacin 500 MG 1 tab(s) orally 3 ti mes a day OTC Active Vitamin E 450 MG 1 CAP(S) ORALLY ONCE A DAY OTC Active Vitamin D (Ergocalciferol) 1.25 MG (62642 UT) 1 cap(s) orally once a week; Duration: 84 days Active Vitamin B Complex QD OTC Ac tive Vitamin C 500 MG 1 tab(s) orally once a day OTC Active Coreg 12.5 MG 1 tab(s) orally 2 ti mes a day; Duration: 90 days Active Folic Acid 1 MG 1 tab(s) orally once a day OTC Active Livalo 2 MG 1 tablet Orally Once a day; Duration: 90 days 10/12/2024 Active Ciclopirox 8 % 1 application Facility Assistant ally Once a day; Duration: 90 days 02/10/2025 Active Pregabalin 75 MG 1 cap(s) orally 3 ti mes a day; Duration: 5 days 01/14/2025 Active Immunizations Vaccine Route Administration Date Status Comme nts Covid Brenna IM Intramuscular 10/07/2020 Administered Social History Tobacco Use: Social History Observation Description Date Details (start date - stop date) Never Smoker NA - NA Smoking: Question Answer Notes Are you a: nonsmoker Problems Problem Type SNOMED Code ICD Code Onset Dates Problem Status W/U Status Risk Notes Problem Alcohol abuse wi th intoxication, unspecified (F10.129) Active confirmed Problem Vitamin D deficiency (40852631) Vitamin D deficiency (E55.9) Active confirmed Problem Neuropathy (058666787) Neuropathy (G62.9) Active confirmed Problem Essential hypertension (00616953) Essential hypertension (I10) Active confirmed Problem Thrombocytopenia (536428903) Thrombocytopenia (D69.6) Active confirmed Problem Osteoarthritis of knee (291970932) Primary osteoarthritis of both knees (M17.0) Active confirmed Problem Urinary hesitancy (7757089) Urinary hesitancy (R39.11) Active confirmed Problem Mood disorder (88178910) Mood disorder (F39) Active confirmed Problem Alcohol abuse (82631913) Alcohol abuse (F10.10) Active confirmed Problem Vasculopathic erectile dysfunction (disorder) (9074254106003) Vasculogenic erectile dysfunction, unspecified vasculogenic erectile dysfunction type (N52.9) Active confirmed Problem Hypercholesterolemia (46208570) Hypercholesterolemia (E78.00) Active confirmed Problem Contracture of guillen r fascia (851507167) Dupuytren contracture (M72.0) Active confirmed Problem History of musculoskeletal disease (536830943) Personal history of gout (Z87.39) Active confirmed Problem Alcoholic cirrhosis (951959336) Alcoholic cirrhosis, unspecified whether ascites present (K70.30) Active confirmed Vital Signs Heart Rate 82 /min 04/06/2025 Temperature 98 degrees Fahrenheit 04/06/2025 Blood pressure diastolic 90 mm Hg 04/06/2025 Height 6 ft 0 in in 04/06/2025 Blood pressure systolic 142 mm Hg 04/06/2025 Weight 224 lbs 04/06/2025 BMI 30.38 kg/m2 04/06/2025 Encounters Encounter Location Date Provider Diagnosis [facility] [address] [facility] [address] [place] [address] 04/21/2024 Masoud Julia [facility] [address] [facility] [address] [place] [address] 05/19/2024 Masoud Julia [facility] [address] [facility] [address] [place] [address] 07/05/2024 Masoud Julia [facility] [address] [facility] [address] [place] [address] 10/09/2024 Provider Migration Neuropathy G62.9 ; Hypercholesterolemia E78.00 and Essential hypertension I10 [facility] [address] [facility] [address] [place] [address] 10/11/2024 Masoud Julia [facility] [address] [facility] [address] [place] [address] 05/31/2024 Masoud Julia Neuropathy G62.9 [facility] [address] [facility] [address] [place] [address] 10/08/2024 Masoud Julia Alcoholic cirrhosis, unspecified whether ascites present K70.30 ; Neuropathy G62.9 ; Hepatosplenomegaly R16.2 ; Hypercholesterolemia E78.00 ; Essential hypertension I10 ; Urinary hesitancy R39.11 and Vitamin D deficiency E55.9 [facility] [address] [facility] [address] [place] [address] 02/10/2025 Masoud Julia Neuropathy G62.9 ; Alcoholic cirrhosis, unspecified whether ascites present K70.30 ; Hepatosplenomegaly R16.2 ; Hypercholesterolemia E78.00 ; Essential hypertension I10 ; Vitamin D deficiency E55.9 ; IFG (impaired fasting glucose) R73.01 and Tinea unguium B35.1 [facility] [address] [place] [address] 04/06/2025 Masoud Julia Cellulitis of toe of right foot L03.031 ; History of gout Z87.39 ; Callus of toe L84 and Neuropathy G62.9 [facility] [address] [place] [address] 04/07/2024 Masoud Julia [facility] [address] [place] [address] 05/18/2024 Masoud Julia [facility] [address] [place] [address] 05/24/2024 Masoud Julia [facility] [address] [place] [address] 06/09/2024 Masoud Julia [facility] [address] [place] [address] 06/14/2024 Masoud Julia [facility] [address] [place] [address] 08/06/2024 Masoud Julia Neuropathy G62.9 [facility] [address] [place] [address] 10/07/2024 Masoud Julia Neuropathy G62.9 [facility] [address] [place] [address] 10/12/2024 Masoud Julia Hypercholesterolemia E78.00 [facility] [address] [place] [address] 11/30/2024 Sterling Besson Neuropathy G62.9 [facility] [address] [address] 01/11/2025 Masoud Julia Essential hypertensi on I10 and Neuropathy G62.9 [facility] [address] [address] 01/14/2025 Masoud Julia Neuropathy G62.9 [facility] [address] [address] 02/07/2025 Masoud Dumont [address] [address] 02/24/2025 Masoud Dumont Assessments Encounter Date Diagnosis [...] labs today, has ongoing follow-up with hepatology. 04/06/2025 Cellulitis of toe of right foot [...] response to management 04/06/2025 History of gout (ICD -10 - Z87.39) 04/06/2025 Callus of toe (ICD-1 0 - L84) 02/10/2025 Hepatosplenomegaly (ICD-10 - R16.2) 01/11/2025 Neuropathy [...] needs to continue beta-blockade because of varices. 04/06/2025 Neuropathy (ICD-10 - G62.9) 02/10/2025 Hypercholesterolemia (ICD-10 - E78.00) continue Livalo [...] Date X ray : Knee, Right 05/01/2020 X ray : Foot, Right 04/06/2025 M-Complete Blood Count Auto Diff 021 M-Complete Blood Count Auto Diff 024 M-Complete Blood Count Auto Diff 025 M-Erythrocyte Sedimentation Rate 025 M-Comprehensive Metabolic Panel 04/06/20 25 M-Comprehensive Metabolic Panel 11/28/19 21 M-Uric Acid 04/06/2025 H-X-Vjjenxkw Protein 04/06/2025 M-Lipid Panel 11/27/2020 M-Lipase 11/27/2020 M-Vitamin B12 05/03/2021 Rapid Covid Antigen 07/09/2021 Physical Therapy Eval and Treat 05/31/20 LIPID PANEL, STANDARD (7600) 02/17/2023 URIC ACID (905) 02/17/2023 FOLATE, SERUM (466) 02/17/2023 VITAMIN B12 (927) 02/17/2023 TSH W/REFLEX TO FT4 (38851) 02/17/2023 Insurance Providers Payer Name Payer Address Payer Phone Subscriber Number Group Number Insured Name Patient Relationship to Insured Coverage Start Date Coverage End Date [employer] [facility] [address] [place] [address] [id number] Jimmy Montano Self - patient is the insured Medical (General) History Medical History History ICD Code HTN ED Neuropathy Mood disorder HLD - stopped statin due to s/e and live r/pancreatitis issues Alcohol abuse Gout Liver cirrhosis with hepatosplenomegaly Surgical History Surgery Date(Month/Year) lt hand surgery 06/2024 Hospitalization History Reason Date(Month/Year) Good Edgardo 02/2024
--- OUTSIDE RECORDS SUMMARY | 2025-04-07 14:48 | XMS_ITS | Clinical Summary ---
Author Organization [facility] Address [address] [place] [address] Care Team Providers Care Perforator Loader Name Role Phone Marisol Dumont Rory MANN Primary Care Provider [phone] Allergies Active Allergy Reactions Criticality Noted Date Comments Richard Inhibitors Cough Low 02/21/2024 Medications allopurinol (Zyloprim) 100 MG tablet Take 1 tablet (100 mg) by mouth 1 (one) time each day. Active diazePAM (Valium) 5 MG tablet Take 1 tablet (5 mg) by mouth every 8 (eight) hours if needed for anxiety. Active ergocalciferol (Vitamin D-2) 1.25 MG (65750 UT) capsule Take 1 capsule (50,000 Units) [...] mouth 1 (one) time each day. Active Niacin-Inositol (Niacin Flush Free) 400-100 MG capsule Take [...] Pitavastatin Calcium 2 MG tablet 5 Active Active Problems Problem Noted Date Diagnosed Date Alcoholic hepatitis 02/21/2024 Metabolic dysfunction-associated steatohepatitis (MASH) 02/21/2024 HTN (hypertension) 02/20/2024 HLD (hyperlipidemia) 02/20/2024 Gout 02/20/2024 Alcohol use disorder 02/20/2024 Nicotine dependence 02/20/2024 Hypomagnesemia 02/20/2024 Hypokalemia 02/20/2024 Alcohol withdrawal 02/20/2024 Resolved Problems Problem Noted Date Diagnosed Date Resolved Date Alcoholic cirrhosis of liver without ascites 4 02/21/2024 Hematoma 02/20/2024 03/27/2025 Encounters Date Type Department Care Team Description 03/10/2025 Telephone [facility]ties [address] [place] [address] Haylee Washington 03/04/2025 8:30 AM EDT Office Visit [facility] [address] [place] [address] Miguel Angel Hannon PA History of alcohol use (Primary Dx); Alcoholic cirrhosis of liver without ascites (CMS/HCC); BMI 29.0-29.9,adult 03/03/2025 Travel from Last 3 Months Immunizations Immunization Administration Dates Next Due Hep B, Adolescent/High Risk Infant 07/13/1997, TD (adult), 2 Lf tetanus tox oid, preservative free, adsorbed 09/17/1996 Tdap 09/28/2023 Family History Medical History Relation Name Comments Hyperlipidemia Father Grayson Hypertension Father Bill Alcohol abuse Mother Mom [...] place to sleep or slept in a fpc (including now)? No 02/23/2024 PHQ-9 Answer Date [...] drink first t karon in the morning (EYE-SPINNER CAP FRAME) to steady your nerves or to get [...] Description 09/13/2025 9:00 AM EDT Office Visit [facility] [address] [place] [address] Miguel Angel Hannon PA [address] [place] [address] Health Maintenance Due Date Last [...] 3 - 3-dose series) 09/07/1997 07/13/1997, 02/11/1997 [id number] Vaccine (2 - Brenna risk series) 11/04/2020 10/07/2020 CT Colonography 2023 FIT-DNA 2023 FIT 2023 FOBT 2023 Sigmoidoscopy 2023 [facility]-Influenza Vaccine (#1) 2025 [facility]-Depression Screening 03/04/2026 03/04/2025, 0803/2025 UKY-Zoster Vaccines (1 of 2) 2028 Colonoscopy [...] for anesthesia administered medications. Staff Staff Role Eleuterio Vale CRNA CRNA Crouch, Alexandra M, RN Endo Nurse Neil Skinner MD Anesthesiologist Gucci Reyes MD Proceduralist Cristobal Calvin Endo Certified Dental Assistant Preprocedure A history and physical has been [...] of bowel preparation was evaluated using the [place] Bowel Preparation Scale with scores of: right [...] Reactive Non Reactive 02/20/2024 6:18 PM EDT [facility] Comment:Screening for HIV 1 & 2 antibodies, and P24 antigen is NONREACTIVE. No confirmatory testing is required. Blood Venous blood specimen / Unknown Venipuncture / Unknown 02/20/2024 5:28 PM EDT 02/20/2024 5:39 PM EDT Bree Vazquez RECYCLING PROGRAM MANAGER LAB BLOOD ORDERABLES Final Result [facility] [address] [place] [address] * Hepatitis C Antibody - ED (02/20/2024 5:28 PM EDT) Hepatitis C Antibody Negative Negative 02/20/2024 6:14 PM EDT [facility] Blood Venous blood specimen / Unknown Venipuncture / Unknown 02/20/2024 5:28 PM EDT 02/20/2024 5:39 PM EDT Bree Vazquez RECYCLING PROGRAM MANAGER LAB BLOOD ORDERABLES Final Result [facility] [address] [place] [address] from Last 3 Months or Most Recently Relevant to Health Maintenance Insurance AN[employer] Advance Directives * Full Code (Latest Code Status on File) Date Activated Date Inactivated Comments 02/20/2024 8:36 PM 02/24/2024 5:03 PM Question Answer Comments Patient has decision-making capacity? Yes Care Teams Perforator Loader Relationship Specialty Start Date End Date Marisol Dumont APRN [address] [place] [address] [facility] - General 02/20/24
--- OUTSIDE RECORDS SUMMARY | 2025-04-07 14:48 | XMS_ITS | Encounter Summary ---
Author Organization [facility] Address [address] [place] [address] Care Team Providers Care Entertainment Lawyer Name Role Phone Marisol Dumont Rory MANN Primary Care Provider [phone]- [phone] Encounter Details Date Type Department Care Team [...] drink first t karon in the morning (EYE-REPAIRER WELDING SYSTEMS AND EQUIPMENT) to steady your nerves or to get [...] Description 09/13/2025 9:00 AM EDT Office Visit [facility] Medicine Specialties [address] [place] [address] Miguel Angel Hannon PA [address] [place] [address] documented as of this encounter Visit Diagnoses [...] documented as of this encounter Care Teams Entertainment Lawyer Relationship Specialty Start Date End Date Marisol Dumont APRN [facility] [address] [address] PCP - General 02/20/24 documented as of this encounter
--- OUTSIDE RECORDS SUMMARY | 2025-04-07 14:49 | XMS_ITS | Encounter Summary ---
Author Organization [facility] Address [address] [id number] Care Team Providers Care Piano Refinisher Name Role Phone JuliaMarisol beasley Rory MANN Primary Care Provider [phone]- [phone] Reason for Visit * Reason Onset Date Comments Ultrasound 03/10/2025 Encounter Details Date Type Department Care Team (Late st Contact Info) Description 03/10/2025 Telephone [facility] [address] [place] [address] [place] [address] Ultrasound Social History Tobacco Use Types Packs/Day [...] place to sleep or slept in a retirement (including now)? No 02/23/2024 PHQ-9 Answer Date [...] drink first t karon in the morning (EYE-GAME DESIGNER) to steady your nerves or to get [...] encounter Miscellaneous Notes * Telephone Encounter - Radha Sheriff RN - 04/01/2025 4:13 PM EDT Patient spouse reached out to go over recent US report. Sent fax request for most recent labs from PCP Marisol Dumont APRN [phone] * Telephone Encounter - Haylee Washington - 03/10/2025 2:12 PM EDT Faxed US order to [facility] F: [phone] documented in this encounter Plan of Treatment Upcoming Encounters Date Type Department Care Team (Late st Contact Info) Description 09/13/2025 9:00 AM EDT Office Visit [facility] Medicine Specialties [address] [place] [address] Miguel Angel Hannon, PA [address] [place] [address] documented as of this encounter Visit Diagnoses [...] documented as of this encounter Care Teams Piano Refinisher Relationship Specialty Start Date End Date Marisol Dumont APRN [address] [facility] [address] [place] [address] PCP - General 02/20/24 documented as of this encounter
--- OUTSIDE RECORDS SUMMARY | 2025-04-07 14:49 | XMS_ITS | Clinical Summary ---
Author Organization [facility] Address [address] [place] [address] Care Team Providers Care Cable Wirer Name Role Phone Sterling Muller MD Unavailable [phone] Sterling Muller MD Primary Care Provider [phone] Miguel Angel Hannon Unavailable [phone] Source Comments This information has been disclosed to you from confidential records protectedfrom disclosure by state law. You shall make no further disclosure of thisinformation without the specific, written, and informed release of theindividual to whom it pertains, or as otherwise permitted by law. A generalauthorization for the release of medical or other information is not sufficientfor the purposes of therelease of HIV test results or diagnoses. [id number] Allergies Active Allergy Reactions Criticality Noted Date Comments Richard Inhibitors Other (See Comments) Low 02/21/2024 Other Reaction(s): Cough Medications allopurinoL (ZYLOPRIM) 100 MG tablet take 1 tablet by mouth once daily for 90 days Active carvediloL (COREG) 25 MG tablet take 1 tablet by mouth twice a day for 90 days Active diazePAM (VALIUM) 5 MG tablet Take 1 tablet (5 mg total) by mouth. Active colchicine 0.6 mg tablet 10/17/2023 Active folic acid (FOLVITE) 400 MCG tablet Take by mouth. Active ergocalciferol (ERGOCALCIFEROL ) 1,250 mcg (50,000 unit) capsule TAKE 1 CAPSULE BY MOUTH ONE TIME PER WEEK FOR 84 DAYS Active ketoprofen, micronized, bulk, 100 % Powd 06/29/2024 Active niacin, inositol niacinate, 400 mg niacin (500 mg) Cap Take 400 mg by mouth. Active ondansetron (ZOFRAN) 4 MG tablet Take 1 tablet (4 mg total) by mouth. Active ondansetron (ZOFRAN) 8 MG tablet 06/18/2024 Active pitavastatin calcium (LIVALO) 4 mg Tab tablet Take 1 tablet (4 mg total) by mouth daily. 11/14/2023 Active sertraline (ZOLOFT) 25 MG tablet Take 1 tablet (25 mg total) by mouth daily. Active pregabalin (LYRICA) 75 MG capsule take 1 capsule by mouth twice a day for 30 days Active traZODone (DESYREL) 50 MG tablet Take 1 tablet (50 mg total) by mouth. 02/24/2024 Active turmeric/turmer ic ext/pepr ext (TURMERIC-TURME GAIL EXT-PEPPER) 900-100-5 mg Cap Take by mouth. Active Active Problems Problem Noted Date Diagnosed Date Metabolic dysfunction-associated steatohepatitis (MASH) 07/27/2024 Hypertension 07/27/2024 Hypokalemia 07/27/2024 Hematoma 07/27/2024 Alcoholic cirrhosis of liver with ascites 2024 Resolved Problems Problem Noted Date Diagnosed Date Resolved Date Cirrhosis of liver 07/27/2024 Social History Tobacco Use Types Packs/Day Years Used Date Smoking Tobacco: Never Smokeless Tobacco: Current Snuff Tobacco Cessation:Ready to Q uit: Not Asked; Counseling Given: Not Answered Alcohol Use Standard Drinks/Week Comments Yes 0 (1 standard drink = 0.6 oz pur e alcohol) Sex and Gender Information Value Date Recorded Sex Assigned at Not on file Legal Sex Male 2:50 PM EDT Gender Identity Not on file Sexual Orientation Not on file Last Filed Vital Signs Vital Sign Reading Time Taken Comments Blood Pressure 125/75 07/28/2024 8:57 AM EST Pulse 80 07/28/2024 8:57 AM EST Temperature 37.6 C (99.6 F) 02/19/2024 1:21 AM EDT Respiratory Rate 16 07/28/2024 8:57 AM EST Oxygen Saturation 98% 07/28/2024 8:57 AM EST Inhaled Oxygen Concentration 98% 07/28/2024 8 :57 AM EST Weight 103.9 kg (229 lb) 07/28/2024 8:57 AM EST Height 185.4 cm (6' 1 ) 07/28/2024 8:57 AM EST Body Mass Index 30.21 07/28/2024 8:57 AM EST Plan of Treatment Health Maintenance Due Date Last Done Comments ASCVD Assessment 1978 Abnormal Colonoscopy Follow Up 1978 Diabetes Screening 1978 Tobacco Cessation Readiness 1978 Alcohol Misuse Screening 1996 Depression Screening 1996 HIV Screening 1996 Immunization: Hepatitis A (1 of 2 - Risk 2-dose series) 1997 Immunization: Pneumococcal (1 of 2 - PCV) 1997 Immunization: Hepatitis B (3 of 3 - 3-dose series) 09/07/1997 07/13/1997, 02/11/1997 Cologuard (FIT-DNA) 2023 Colonoscopy 2023 Colorectal Cancer Screening (MyChart) 2023 Stool Testing (gFOBT) 2023 Immunization: COVID-19 ( season) 2025 10/07/2020 Immunization: Influenza (MyChart) (#1) 2025 Renal Function/GFR 07/28/2025 07/28/2024, 02/18/2024 Immunization: DTaP/Tdap/Td ( 3 - Td or Tdap) 09/27/2033 09/28/2023, 09/17/1996 Hepatitis C Screening (MyChart) Completed Procedures Procedure Name Priority Date/Time Associated Diagnosis Comments BASIC METABOLIC PANEL Routine 07/28/2024 8:47 AM EST Hepatic cirrhosis, unspecified hepatic cirrhosis type, unspecified whether ascites present (CMS-HCC) HEPATITIS C ANTIBODY STAT 02/18/2024 6:48 PM EDT from Last 3 Months or Most Recently Relevant to Health Maintenance Results * (ABNORMAL) Basic metabolic panel (07/28/2024 8:47 AM EST) Sodium 141 133 - 146 mmol/L 07/28/2024 10:05 AM EST [facility] Potassium 4.1 3.5 - 5.3 mmol/L 07/28/2024 10:05 AM [facility] Chloride 106 98 - 110 mmol/L 07/28/2024 10:05 AM [facility] CO2 25 21 - 33 mmol/L 07/28/2024 10:05 AM [facility] Anion Gap 10 3 - 16 mmol/L 07/28/2024 10:05 AM [facility] BUN 17 7 - 25 mg/dL 07/28/2024 10:05 AM [facility] Creatinine 0.88 0.60 - 1.30 mg/dL 07/28/2024 10:05 AM [facility] Glucose 152(H) 70 - 100 mg/dL 07/28/2024 10:05 AM [facility] Calcium 9.8 8.6 - 10.3 mg/dL 07/28/2024 10:05 AM [facility] Osmolality, Calculated 297 278 - 305 mOsm/kg 07/28/2024 10:05 AM [facility] EGFR >90 07/28/2024 10:05 AM [facility] Comment: As of 2021, the estimated GFR is calculated using the 2020 Chronic Kidney Disease Epidemiology Collaboration (CKD-EPI) equation. In line with the NKF-ASN Task Force Recommendations, this equation does not include a coefficient for race. A single eGFR value is calculated for each patient. The reference interval is >60 mL/min/1.73m2. eGFR values greater than 90 will be reported as >90mL/min/1.73m2. Reference: Vasu C, Sherman M, Connor DC, Lemuel ND, April [place], Gabby [place], et al. A Unifying Approach for GFR Estimation: Recommendations of the NKF-ASN Task Force on Reassessing the inclusion of Race in Diagnosing Kidney Disease. Am J Kidney Dis. 2020. GFR is estimated using creatinine, age, and sex. Patient's values should be interpreted as a trend. Below 90 mL/min/1.73m2, the patient may have renal disease. For additional information: www.kidney.org Plasma 07/28/2024 8:47 AM EST 07/28/2024 9:33 AM EST us Sukhjinder Torrez III, MD LAB BLOOD ORDERABLE S Final Result [facility] [address] * Hepatitis C Antibody (02/18/2024 6:48 PM EDT) HCV Ab Nonreactive Nonreactive 02/18/2024 9:[address] [facility] Comment:Health Department no tified in accordance with reportable infectious disease guidelines. Serum 02/18/2024 6:48 PM EDT 02/18/2024 7:25 PM EDT Narrative [facility] - 02/18/2024 9:43 PM EDT Antibodies to HCV not detected; does not exclude the possibility of exposure to HCV. us Germania CONTRERAS LAB BLOOD ORDERABLES Final Res ult Performing Organization Address City/[facility]/ZIP Co de Phone Number [facility] [address] [facility] [place]. [address] from Last 3 Months or Most Recently Relevant to Health Maintenance Insurance [employer] Care Teams Cable Wirer Relationship Specialty Start Date End Date Sterling Muller MD [address] [place] [address] PCP - General Internal Medicine 07/27/24 Sterling Muller MD [address] [place] [address] Internal Medicine 04/27/24 Miguel Angel Hannon PA [address] [place] [address] Cardiothoracic Surgery 08/02/24
--- NOTE | 2025-04-07 15:08 | XR_ITS ---
FINAL REPORT CLINICAL HISTORY: CELLULITIS RT TOE, HX GOUT FINDINGS: RIGHT FOOT Three views were obtained. There is no fracture or dislocation. The joint spaces appear normal. There is soft tissue swelling of the first digit. There is no evidence of bony erosion, periosteal reaction, or soft tissue calcification. IMPRESSION: Soft tissue swelling of the first digit without acute bony abnormality. Reviewed, Interpreted and Dictated by Misha Leon MD Transcribed by Mary Jane De La Fuente Authenticated and . [facility]
[2025-04-07 15:22] LABS: Hematocrit 41.1 % (42.0-52.0); Hemoglobin 14.8 g/dL (14.1-18.0); Immature Granulocytes % 0.3 %; Mean Corpuscular HGB Conc 36.0 g/dL (31.8-35.4); Mean Corpuscular Hemoglobin 31.0 pg (27.0-31.2); Mean Corpuscular Volume 86.0 fl (80-94); Nucleated Red Blood Cells % 0 %; Platelet Count 176 K/mm3 (142-424); Red Blood Count 4.78 M/mm3 (4.60-6.20); Red Cell Distribution Width-SD 37.4 fL; White Blood Count 9.9 K/mm3 (4.8-10.8)
[2025-04-07 17:33] LABS: Alanine Aminotransferase 22 U/L (12-78); Albumin Level 4.6 g/dl (3.5-5.0); Albumin/Globulin Ratio 1.8 (1.1-1.8); Alkaline Phosphatase 77 U/L (38-126); Anion Gap 14.1 mEq/L (5-15); Aspartate Amino Transferase 26 U/L (17-59); Bilirubin,Total 1.6 mg/dl (0.2-1.3); Blood Urea Nitrogen 10 mg/dl (9-20); Calcium 9.4 mg/dl (8.4-10.2); Carbon Dioxide 29 mmol/L (22.0-30.0); Chloride 99 mmol/L (98-107); Creatinine,Serum 0.80 mg/dl (0.66-1.25); Estimated Glomerular Filt Rate 104 ml/min (>60); GFR (African American) 126 ML/MIN (>60); Globulin 2.5 g/dL (1.3-3.2); Glucose 77 mg/dl (74-100); Potassium 4.1 mmoL/L (3.5-5.1); Sodium 138 mmol/L (136-145); Total Protein,Serum 7.1 g/dl (6.3-8.2); Uric Acid 6.2 mg/dl (3.5-8.5)
[2025-04-07 17:39] LABS: C-Reactive Protein 3.5 mg/L (0-4)
== END 2025-04-07 23:59 | disposition home or self-care (01) ==
LOC: RAD 14:45
PROVIDERS: PCP Nurse Practitioner Family; Visit Provider Nurse Practitioner Family
DX: M79.89 Other specified soft tissue disorders (principal); L03.031 Cellulitis of right toe; Z87.39 Personal history of other diseases of the musculoskeletal system and connective tissue
CPT/HCPCS: 36415; 73630; 80053; 84550; 85025; 85651; 86140